=== PATIENT | female | born 1955 | race Caucasian/White ===

== ENCOUNTER 2021-11-26 09:24 | Inpatient (IN) | payer MEDICARE, MEDICAID ==
[~2021-11-26] VITALS: Ht 154.9 cm; Wt 115.8 kg
--- NOTE | 2021-11-26 12:59 | PM&R Post Admission Assessment ---
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 Mayra Mcdaniel. Status post respiratory failure with hypoxia and hypercapnia. Exacerbation of COPD with diabetes, hypertension, and a history of CVA. She presented to in-patient rehab with severe weakness in need of aggressive therapy in order to return back home. She lives alone, has a caregiver 3 days a week 3 hours a day. At current level of functioning she is minimal assisti at 80 feet and max assist with lower extremity dressing. Past Jvqobky-Tavegv-Qlwnih Hx Past Med/Social Hx: Reviewed Nursing Past Med/Soc Hx, Reviewed and Corrections made Patient Social History Marrital Status: single Employed/Student: retired Alcohol Use: Denies Use Smoking Status: Former Smoker Past Medical History Respiratory: COPD, Pneumonia Currently Using CPAP: Yes Currently Using BIPAP: No Cardiac: Chronic Edema/Swelling, High Cholesterol, Hypertension Neurological: Dementia, Neuropathy Genitourinary: Bladder Infection Gastrointestinal: Gastroesophageal Reflux, Chronic Constipation Musculoskeletal: Arthritis, Chronic Back Pain Endocrine: Diabetes, Insulin dep PM&R Allergy/Meds/Data Review Allergies Coded Allergies: Penicillins (Verified Allergy, Unknown, Rash, 11/26/21) Home Medications Scheduled Atorvastatin Calcium (Atorvastatin Calcium), 20 MG PO DAILY, (Reported) Budesonide/Formoterol Fumarate (Symbicort 160-4.5 Mcg Inhaler), 2 PUFF IH BID, (Reported) Citalopram Hydrobromide (Citalopram HBr), 20 MG PO DAILY, (Reported) Donepezil HCl (Donepezil HCl), 10 MG PO HS, (Reported) Doxycycline Hyclate (Doxycycline Hyclate), 100 MG PO BID, (Reported) Duloxetine HCl (Duloxetine HCl), 30 MG PO BID, (Reported) Fluticasone Propionate (Flonase Allergy Relief), 2 SPRAY NSEACH DAILY, (Reported) Folic Acid (Folic Acid), 1 MG PO DAILY, (Reported) Furosemide (Furosemide), 20 MG PO DAILY, (Reported) Insulin Glargine,Hum.rec.anlog (Lantus), 25 UNIT SQ HS, (Reported) Insulin Lispro (Humalog), 8 UNIT SQ TIDWM, (Reported) Insulin Lispro (Humalog), UNIT SQ TIDWM, (Reported) Levothyroxine Sodium (Levothyroxine Sodium), 150 MCG PO DAILY, (Reported) Lisinopril (Lisinopril), 20 MG PO DAILY, (Reported) Memantine HCl (Namenda), 20 MG PO DAILY, (Reported) Metformin HCl (Metformin HCl ER), 750 MG PO BID WITH MEALS, (Reported) Nicotine (Nicotine Patch), 21 MG TD DAILY, (Reported) Prednisone (Prednisone), MG PO DAILY, (Reported) Rivaroxaban (Xarelto), 20 MG PO 1800 W/SUPPER, (Reported) Spironolactone (Aldactone), 25 MG PO DAILY, (Reported) Tiotropium [place] (Spiriva Respimat 2.5MCG/ACTUATION), 2 PUFF IH DAILY, (R eported) Scheduled PRN Albuterol Sulfate (Proair Hfa), 2 PUFF IH Q4H PRN for SHORTNESS OF BREATH, (Reported) Ipratropium/Albuterol Sulfate (Iprat-Albut 0.5-3(2.5) mg/3 ml), 3 ML IH Q6H PRN for SHORTNESS OF BREATH, (Reported) [Tussionex], 5 ML PO Q12H PRN for COUGH, (Reported) Current Medications Current Medications Reviewed Review of Systems Constitutional: see HPI, dizziness, malaise, weakness EENTM: no symptoms reported Respiratory: dyspnea on exertion, short of breath Cardiovascular: no symptoms reported Gastrointestinal: no symptoms reported Genitourinary: no symptoms reported Musculoskeletal: back pain, joint pain Skin: no symptoms reported Psychiatric/Neurological: Anxiety, Depressed All Other Systems Reviewed Negative Unless Noted: Yes Physical Exam Physical Exam Vital Signs Capillary Refill : Height, Weight, BMI Height: '" Weight: lbs. oz. kg; BMI Method: General Appearance: No Apparent Distress, WD/WN, Chronically ill, Obese Eyes: Bilateral Eye Normal Inspection, Bilateral Eye PERRL HEENT: PERRL/EOMI, Normal ENT Inspection, Pharynx Normal Neck: Full Range of Motion, Normal Inspection, Non Tender, Supple, Carotid Bruit Respiratory: Chest Non Tender, Lungs Clear, No Accessory Muscle Use, No Respiratory Distress, Decreased Breath Sounds Cardiovascular: Regular Rate, Rhythm, No Edema, No Gallop, No JVD, No Murmur, Normal Peripheral Pulses Gastrointestinal: Normal Bowel Sounds, No Organomegaly, No Pulsatile Mass, Non Tender, Soft Back: Normal Inspection, No CVA Tenderness, No Vertebral Tenderness Extremity: Normal Capillary Refill, Normal Inspection, Normal Range of Motion, Non Tender, No Calf Tenderness, No Pedal Edema Neurologic/Psychiatric: Alert, Oriented x3, No Motor/Sensory Deficits, Normal Mood/Affect, Depressed Affect Skin: Normal Color, Warm/Dry Lymphatic: No Adenopathy PM&R Medical Assessment & Plan REHAB/MEDICAL ASSESSMENT AND PLAN: REHAB IMPAIRMENT GROUP: COPD myopathy ETIOLOGIC DIAGNOSIS: COPD myopathy The comorbidities that impact the patients function and/or functional outcome by: obesity, COPD O2 dependent, Recent resp failure requiring biPAP REHAB PLAN: The patient is being admitted to our comprehensive inpatient rehabilitation facility and can tolerate the intensity of service consisting of at least: 180 minutes of therapy a day, 5 out of 7 days a week Rehab treatment will consist of: PT OT will focus on regaining function while giving more time for respiratory recovery while using assistive devices in order to regain independence The patient/family has a good understanding of our discharge process and will benefit from an interdisciplinary inpatient rehabilitation program. The patient has potential to make improvement and is in need of at least two of the following multidisciplinary therapies including but not limited to physical, occupational, speech, and prosthetics and orthotics. Additionally the patient will need services from respiratory, nutritional services, wound care, psychology, etc. (Customize this to each patient). Given the patients complex condition and risk of further medical complications, rehabilitation services cannot be safely or effectively provided at a lower level of care such as a senior care facility. BARRIERS TO DISCHARGE: Lives alone ESTIMATED LOS: 7 days DISPOSITION: Home RELEVANT CHANGES SINCE PREADMISSION SCREENING: I have compared the patients medical and functional status at the time of the preadmission screening and there are: no changes PROGNOSIS: Fair REHABILITATION GOALS: 1.PT OT will focus on regaining function while giving more time for respiratory recovery while using assistive devices in order to regain independence All the above goals were reviewed with the patient and he/she is in agreement. By signing this document, I acknowledge that I have personally performed a full physical examination on this patient within 24 hours of admission to this inpatient rehabilitation facility and have determined the patient to be able to tolerate the above course of treatment at an intensive level for a reasonable period of time. I will be completing a detailed individualized Plan of Care for this patient by day #4 of the patients stay based upon the Preadmission Screen, the Post-Admission Evaluation, and the therapy evaluations. Admission Dx/Comorbidities: (1) Myopathy ICD Codes: G72.9 - Myopathy, unspecified Assessment/Plan Assessment and Plan Assess & Plan/Chief Complaint Assessment: COPD myopathy Obesity BETTE on CPAP O2 dependence Dementia HTN HLP DM insulin dependence Plan: SSI A PT OT per protocol Pain management Fall risk ALONDRA FLORES DO Nov 26, 2021 12:59
[2021-11-26] MEDS ORDERED: ONDANSETRON 4 MG (ZOFRAN) ORAL DISSOLVE TAB PO PRN (13:00)
[2021-11-26] MEDS ORDERED: guaiFENesin/CODEINE (ROBITUSSIN AC) 10ML UDC PO PRN (13:00)
[2021-11-26] MEDS ORDERED: MELATONIN 3 MG TABLET PO PRN (13:00)
[2021-11-26] MEDS ORDERED: DOCUSATE SODIUM 100 MG (COLACE) CAP PO PRN (13:00)
[2021-11-26] MEDS ORDERED: LOPERAMIDE 2 MG (IMODIUM) TABLET PO PRN (13:00)
[2021-11-26] MEDS ORDERED: ACETAMINOPHEN 325 MG TABLET PO PRN (13:00)
[2021-11-26] MEDS ORDERED: CALCIUM CARBONATE 500 MG (TUMS) TAB.CHEW PO PRN (13:00)
[2021-11-26] MEDS ORDERED: BISACODYL 10 MG SUPP (DULCOLAX) PR PRN (13:00)
[2021-11-26] MEDS ORDERED: ALPRAZolam 0.25 MG (XANAX) TAB PO PRN (13:00)
[2021-11-26] MEDS ORDERED: FLEET ENEMA ADULT 1 EA BTL PR PRN (13:00)
[2021-11-26] MEDS ORDERED: LACTULOSE SYRUP 10GM/15ML (ENULOSE) 30ML UDC PO PRN (13:00)
[2021-11-26] MEDS ORDERED: diphenhydrAMINE 25 MG TAB (BENADRYL) PO PRN (13:00)
[2021-11-26] MEDS ORDERED: DOXY100C5 PO (13:48)
[2021-11-26] MEDS ORDERED: IPRA3AMP31 IH (13:48)
[2021-11-26] MEDS ORDERED: INSU100V6 SQ (13:48)
[2021-11-26] MEDS ORDERED: TUSSIONEX PO (13:48)
[2021-11-26] MEDS ORDERED: INSU100V SQ (13:48)
[2021-11-26] MEDS ORDERED: DONE10TA41 PO (13:48)
[2021-11-26] MEDS ORDERED: ATOR20TA66 PO (13:48)
[2021-11-26] MEDS ORDERED: LISI20TA26 PO (13:48)
[2021-11-26] MEDS ORDERED: FLUT9.9S NSEACH (13:48)
[2021-11-26] MEDS ORDERED: DULO30CA49 PO (13:48)
[2021-11-26] MEDS ORDERED: NICO-685 TD (13:48)
[2021-11-26] MEDS ORDERED: RT-ALBUINH IH (13:48)
[2021-11-26] MEDS ORDERED: CITA20TA9 PO (13:48)
[2021-11-26] MEDS ORDERED: LEVO150T6 PO (13:48)
[2021-11-26] MEDS ORDERED: FOLI1TAB33 PO (13:48)
[2021-11-26] MEDS ORDERED: BUDE10.2 IH (13:48)
[2021-11-26] MEDS ORDERED: METF750T45 PO (13:48)
[2021-11-26] MEDS ORDERED: FURO20TA4 PO (13:48)
[2021-11-26] MEDS ORDERED: RIVA20TA PO (13:48)
[2021-11-26] MEDS ORDERED: MEMA5TAB PO (13:48)
[2021-11-26] MEDS ORDERED: PRD10T PO (13:48)
[2021-11-26] MEDS ORDERED: TIOT4MIS2 IH (13:48)
[2021-11-26] MEDS ORDERED: SPIR25TA PO (13:48)
[2021-11-26 16:43] VITALS: BP 125/71
[2021-11-26] MEDS ORDERED: RT-ALBUTEROL/IPRATROPIUM 3 ML (DUONEB) VIAL IH PRN (17:00)
[2021-11-26] MEDS ORDERED: TUSSIONEX PO PRN (17:00)
[2021-11-26] MEDS ORDERED: RT-ALBUTEROL SULF 2.5 MG/3 ML PRE-MIX VIAL IH PRN (17:00)
[2021-11-26] MEDS ORDERED: HYDROcodone/Chlorpen 10MG/5 ML (TUSSIONEX) 5ML UDC PO PRN (17:15)
[2021-11-26] MEDS ORDERED: INSULIN LISPRO 8 UNIT SQ SCH (18:00)
[2021-11-26] MEDS ORDERED: NON-FORMULARY MEDICATION 1 EA EA (Metformin HCl (Metformin HCl ER) 750 MG) PO SCH (18:00)
[2021-11-26] MEDS ORDERED: metFORMIN XR 500 MG (GLUCOPHAGE XR) TAB PO SCH (18:00)
[2021-11-26] MEDS: RIVAROXABAN 20 MG TABLET (XARELTO) PO SCH (18:13)
[2021-11-26] MEDS: metFORMIN XR 500 MG (GLUCOPHAGE XR) TAB PO SCH (18:13)
[2021-11-26] MEDS: inSUlin ASPART (NovoLOG) 1 UNIT/0.01 ML (CHARGE PER UNIT) SC SCH ×3 (18:15→20:48)
[2021-11-26 19:52] VITALS: BP 117/68
[2021-11-26] MEDS: DONEPEZIL 10 MG (ARICEPT) TAB PO SCH (20:36)
[2021-11-26] MEDS: DULoxetine 30 MG (CYMBALTA) CAP PO SCH (20:36)
[2021-11-26] MEDS: DOXYCYCLINE 100 MG (VIBRAMYCIN) TABLET PO SCH (20:36)
[2021-11-26] MEDS: DOCUSATE SODIUM 100 MG (COLACE) CAP PO SCH (20:39)
[2021-11-26] MEDS: polyethylene glycoL POWDER 17 GM (MIRALAX) PACK PO SCH (20:39)
[2021-11-26] MEDS: SENNA W/DOCUSATE (SENOKOT S) TABLET PO SCH (20:39)
[2021-11-26] MEDS ORDERED: NON-FORMULARY MEDICATION 1 EA EA (Doxycycline Hyclate 100 MG) PO SCH (21:00)
[2021-11-26] MEDS ORDERED: NON-FORMULARY MEDICATION 1 EA EA (Insulin Glargine,Hum.rec.anlog (Lantus) 25 UNIT) SQ SCH (21:00)
[2021-11-26] MEDS ORDERED: NON-FORMULARY MEDICATION 1 EA EA (Budesonide/Formoterol Fumarate (Symbicort 160-4.5 Mcg In IH SCH (21:00)
[2021-11-27 05:51] LABS: BASOPHILS % (AUTO) 0 % (0-10); EOSINOPHILS # (AUTO) 0.1 10^3/uL (0.0-0.3); EOSINOPHILS % (AUTO) 1 % (0-10); HEMATOCRIT 49 % (35-52); LYMPHOCYTES # (AUTO) 2.1 10^3/uL (1.0-4.0); LYMPHOCYTES % (AUTO) 22 % (12-44); MEAN CORPUSCULAR HEMOGLOBIN 31 pg (25-34); MEAN CORPUSCULAR HGB CONC 31 g/dL (32-36); MEAN CORPUSCULAR VOLUME 103 fL (80-99); MEAN PLATELET VOLUME 10.9 fL (9.0-12.2); MONOCYTES # (AUTO) 0.8 10^3/uL (0.0-1.0); MONOCYTES % (AUTO) 8 % (0-12); NEUTROPHILS # (AUTO) 6.7 10^3/uL (1.8-7.8); NEUTROPHILS % (AUTO) 69 % (42-75); PLATELET COUNT 178 10^3/uL (130-400); WHITE BLOOD COUNT 9.8 10^3/uL (4.3-11.0)
--- NOTE | 2021-11-27 05:52 | PM&R Progress Note ---
Subjective HPI/CC On Admission Date Seen by Provider: Nov 27, 2021 Time Seen by Provider: 12:00 Subjective/Events-last exam 11/27/21: Pt is doing about the same Very forgetful, very impulsive Holding insulin due to hypoglycemia Chair and bed alarm maintained Review of Systems General: Fatigue, Malaise Pulmonary: Dyspnea Neurological: Confusion Objective Exam Vital Signs Vital Signs Date Time Temp Pulse Resp B/P (MAP) Pulse Ox O2 Delivery O2 Flow Rate FiO2 11/28/21 02:38 68 21 93 40.00 11/27/21 22:11 Nasal Cannula 11/27/21 19:24 36.4 135/72 (93) Capillary Refill : General Appearance: No Apparent Distress, WD/WN, Chronically ill, Obese HEENT: PERRL/EOMI, Normal ENT Inspection, Pharynx Normal Neck: Full Range of Motion, Normal Inspection, Non Tender, Supple, Carotid Bruit Respiratory: Chest Non Tender, Lungs Clear, No Accessory Muscle Use, No Respiratory Distress, Decreased Breath Sounds Cardiovascular: Regular Rate, Rhythm, No Edema, No Gallop, No JVD, No Murmur, Normal Peripheral Pulses Gastrointestinal: Normal Bowel Sounds, No Organomegaly, No Pulsatile Mass, Non Tender, Soft Back: Normal Inspection, No CVA Tenderness, No Vertebral Tenderness Extremity: Normal Capillary Refill, Normal Inspection, Normal Range of Motion, Non Tender, No Calf Tenderness, No Pedal Edema Neurologic/Psychiatric: Alert, Oriented x3, No Motor/Sensory Deficits, Normal Mood/Affect, Depressed Affect Skin: Normal Color, Warm/Dry Lymphatic: No Adenopathy Results/Procedures Lab Patient resulted labs reviewed. FIM Transfers Therapy Code Descriptions/Definitions Functional [place] Measure: 0=Not Assessed/NA 4=Minimal Assistance 1=Total Assistance 5=Supervision or Setup 2=Maximal Assistance 6=Modified [place] 3=Moderate Assistance 7=Complete IndependenceSCALE: Activities may be completed with or without assistive devices. 6-Xqyetrtdbn-iuoxglk completes the activity by him/herself with no assistance fr om a helper. 5-Set-up or Clean-up Assistance-helper sets up or cleans up; patient completes activity. [place] assists only prior to or following the activity. 4-Supervision or Touching Assistance-helper provides verbal cues and/or touching/steadying and/or contact guard assistance as patient completes activity. Assistance may be provided throughout the activity or intermittently. 3-Partial/Moderate Assistance-helper does LESS THAN HALF the effort. [place] lifts, holds or supports trunk or limbs, but provides less than half the effort. 2-Substantial/Maximal Assistance-helper does MORE THAN HALF the effort. [place] lifts or holds trunk or limbs and provides more than half the effort. 3-Qrsptxoqy-wdpifi does ALL the effort. Patient does none of the effort to complete the activity. Or, the assistance of 2 or more helpers is required for the patient to complete the activity. If activity was not attempted, code reason: 7-Patient Refused. 9-Not Applicable-not attempted and the patient did not perform the activity before the current illness, exacerbation or injury. 10-Not Attempted due to Environmental Limitations-(lack of equipment, weather restraints, etc.). 88-Not Attempted due to Medical Conditions or Safety Concerns. Assessment/Plan Assessment and Plan Assess & Plan/Chief Complaint Assessment: COPD myopathy Obesity BETTE on CPAP O2 dependence Dementia HTN HLP DM insulin dependence Plan: SSI A PT OT per protocol Pain management Fall risk 11/27/21: Hold insulin Monitor pain (1) Myopathy ALONDRA FLORES DO Nov 27, 2021 05:51
[2021-11-27 05:59] LABS: ALBUMIN 3.3 GM/DL (3.2-4.5); POTASSIUM 4.2 MMOL/L (3.6-5.0)
[2021-11-27 06:04] LABS: BILIRUBIN,TOTAL 0.6 MG/DL (0.1-1.0)
[2021-11-27 06:05] LABS: CREATININE SERUM 0.81 MG/DL (0.60-1.30)
[2021-11-27] MEDS: inSUlin ASPART (NovoLOG) 1 UNIT/0.01 ML (CHARGE PER UNIT) SC SCH ×5 (06:26→20:43)
[2021-11-27] MEDS: LEVOTHYROXINE 150 MCG (LEVOTHROID) TAB PO SCH (06:33)
[2021-11-27] MEDS: DULoxetine 30 MG (CYMBALTA) CAP PO SCH ×2 (07:47→20:42)
[2021-11-27] MEDS: SPIRONOLACTONE 25 MG (ALDACTONE) TAB PO SCH (07:47)
[2021-11-27] MEDS: DOXYCYCLINE 100 MG (VIBRAMYCIN) TABLET PO SCH ×2 (07:47→20:42)
[2021-11-27] MEDS: lisINopril 20 MG (PRINIVIL) TABLET PO SCH (07:47)
[2021-11-27] MEDS: FOLIC ACID 1 MG TAB PO SCH (07:47)
[2021-11-27] MEDS: FUROSEMIDE 20 MG (LASIX) TAB PO SCH (07:47)
[2021-11-27 07:48] VITALS: BP 104/55
[2021-11-27] MEDS: metFORMIN XR 500 MG (GLUCOPHAGE XR) TAB PO SCH ×2 (07:48→17:27)
[2021-11-27] MEDS: NICOTINE 21 MG (NICODERM) PATCH TD SCH (07:56)
[2021-11-27] MEDS: MEMANTINE 5 MG (NAMENDA) TABLET PO SCH (07:56)
[2021-11-27] MEDS: NICOTINE PATCH REMOVAL TP SCH (07:57)
[2021-11-27] MEDS: FLUTICASONE NASAL SPRAY (FLONASE) 16 GM BTL NS SCH (07:58)
[2021-11-27] MEDS: polyethylene glycoL POWDER 17 GM (MIRALAX) PACK PO SCH ×2 (08:06→19:59)
[2021-11-27] MEDS: DOCUSATE SODIUM 100 MG (COLACE) CAP PO SCH ×2 (08:06→19:59)
[2021-11-27] MEDS: SENNA W/DOCUSATE (SENOKOT S) TABLET PO SCH ×2 (08:07→19:59)
--- NOTE | 2021-11-27 08:57 | Physical Therapy Evaluation ---
PT Evaluation-General Medical Diagnosis Admission Date Nov 26, 2021 at 16:15 Medical Diagnosis: COPD, debility Onset Date: Nov 26, 2021 Therapy Diagnosis Therapy Diagnosis: impaired mobility, strength, endurance Precautions Precautions/Isolations: Fall Prevention, Standard Precautions Referral Physician: Elba Rowell DO Reason for Referral: Evaluation/Treatment Medical History Pertinent Medical History: DM, Dementia, HTN Reviewed History: Yes Social History Home: Single Level Current Living Status: Alone Entry Into Home: Ramp Prior Prior Level of Function SCALE: Activities may be completed with or without assistive devices. 2-Wlypjiyooa-ulkyqca completes the activity by him/herself with no assistance from a helper. 5-Set-up or Clean-up Assistance-helper sets up or cleans up; patient completes activity. [place] assists only prior to or following the activity. 4-Supervision or Touching Assistance-helper provides verbal cues and/or touching/steadying and/or contact guard assistance as patient completes activity. Assistance may be provided throughout the activity or intermittently. 3-Partial/Moderate Assistance-helper does LESS THAN HALF the effort. [place] lifts, holds or supports trunk or limbs, but provides less than half the effort. 2-Substantial/Maximal Assistance-helper does MORE THAN HALF the effort. [place] lifts or holds trunk or limbs and provides more than half the effort. 7-[place] does ALL the effort. Patient does none of the effort to complete the activity. Or, the assistance of 2 or more helpers is required for the patient to complete the activity. If activity was not attempted, code reason: 7-Patient Refused. 9-Not Applicable-not attempted and the patient did not perform the activity before the current illness, exacerbation or injury. 10-Not Attempted due to Environmental Limitations-(lack of equipment, weather restraints, etc.). 88-Not Attempted due to Medical Conditions or Safety Concerns. Bed Mobility: 6 Transfers (B,C,W/C): 6 Gait: 6 Indoor Mobility (Ambulation): Independent Prior Devices Use: Walker PT Evaluation-Current Subjective Patient in recliner pre tx, agrees to PT, has no complaints of pain. Pt/Family Goals to be independent at home Objective Patient Orientation: Person, Confused Attachments: Oxygen ROM/Strength ROM Lower Extremities WNL Strength Lower Extremities LLE (hip flexion 3+/5, knee flexion 4-/5, knee extension 4/5, dorsiflexion 4+/5), RLE (hip flexion 3+/5, knee flexion 4-/5, knee extension 4/5, dorsiflexion 4+/5) Sensory Vision: Functional Hearing: Functional Sensation Right Lower Extremit: Intact Sensation Left Lower Extremity: Intact Transfers Roll Left & Right (QC): 6 Sit to Lying (QC): 6 Lying to Sitting/Side of Bed(Q: 6 Sit to Stand (QC): 4 Chair/Dgz-yf-Fhagg Xfer(QC): 4 Toilet Transfer (QC): 4 Car Transfer (QC): 4 Patient performs rolling and supine <-> sit with independence, sit <-> stand and transfers with CGA, car transfer CGA. Patient is confused and needs cues to stay on task and for safety. Gait Does the Patient Walk?: Yes Mode of Locomotion: Walk Anticipated Mode of Locomotion: Walk Walk 10 feet (QC): 4 Walk 50 ft with 2 Turns(QC): 4 Walk 150 ft (QC): 88 Walking 10ft/uneven surface-QC: 4 Distance: 100', 20'x3 Gait Assistive Device: FWW Comments/Gait Description Patient can ambulate 100' with a rolling walker with CGA (including 50' with at least 2 turns of 90 degrees and 10' over an uneven surface), patient needs cues for direction Wheelchair Training Wheel 50 ft with 2 turns (QC): 3 Wheel 150 ft (QC): 3 Type of Wheelchair: Manual Stairs #of Steps: 1 1 Step (curb) (QC): 4 4 Steps (QC): 88 12 Steps (QC): 88 Walking Assistive Device: Walker Patient can go up and down 1 step using a rolling walker with CGA, cues for foot placement. Balance Sitting Static: Normal Sitting Dynamic: Normal Standing Static: Good Standing Dynamic: Good Picking up an Object (QC): 4 (CGA with criminal justice teacher) Treatment NuStep level 5 for 15 min, parallel bars exercises x15 (heel raises, mini- squats, marching, hamstring curls, hip abd) Assessment/Needs Patient in recliner post tx with nurse call, phone, tray, all needs met, chair alarm on. Patient has impaired mobility, strength, endurance. She needs occasional rest breaks with activity, can be a little impulsive. Rehab Potential: Fair PT Short Term Goals Short Term Goals Time Frame: Dec 04, 2021 Roll Left & Right: 6 Sit to lyin Lying to sitting on side of be: 6 Sit to stand: 4 (SBA) Chair/tqp-jt-ziujz transfer: 4 (SBA) Walk 10 feet: 4 (SBA) Walk 50 feet with two turns: 4 (SBA) Walk 150 feet: 4 (SBA) PT Candle Molder Goals Mcc Goals PT Candle Molder Goals Time Frame: Dec 18, 2021 Roll Left & Right (QC): 6 Sit to Lying (QC): 6 Lying-Sitting on Side/Bed(QC): 6 Sit to Stand (QC): 6 Chair/[place]hq[place] Xfer(QC): 6 Toilet Transfer (QC): 6 Car Transfer (QC): 6 Does the Patient Walk: Yes Walk 10 feet (QC): 6 Walk 50ft with 2 Turns (QC): 6 Walk 150 ft (QC): 6 Walking 10ft on Uneven Surface: 6 1 Step (curb) (QC): 4 (SBA) 4 Steps (QC): 4 (SBA) 12 Steps (QC): 88 Picking up an Object (QC): 6 Wheel 50 feet with 2 turns (QC: 9 Wheel 150 feet: 9 PT Plan Problem List Problem List: Activity Tolerance, Functional Strength, Safety, Balance, Gait, Transfer, Bed Mobility, ROM Treatment/Plan Treatment Plan: Continue Plan of Care Treatment Plan: Bed Mobility, Education, Functional Activity Jerrod, Functional Strength, Group Therapy, Gait, Safety, Therapeutic Exercise, Transfers Treatment Duration: Dec 18, 2021 Frequency: At least 5 of 7 days/Wk (IRF) Estimated Hrs Per Day: 1.5 hours per day Patient and/or Family Agrees t: Yes Safety Risks/Education Patient Education: Gait Training, Transfer Techniques, Steps, Correct Positioning, Safety Issues Teaching Recipient: Patient Teaching Methods: Demonstration, Discussion Response to Teaching: Reinforcement Needed Discharge Recommendations Plan Patient will perform bed mobility and transfer training, balance and endurance training, functional strengthening, stair training, gait training, and education, to improve functional mobility and independence at home. Therapy Discharge Recommendati: Scheduled Assistance, Home & Family, Post Acute PT Time/GCodes Time In: 0800 Time Out: 0915 Total Billed Treatment Time: 75 Total Billed Treatment 1 visit EVM 15' EX 30' FA 30' HEATHER [place] PT Nov 27, 2021 08:57
[2021-11-27] MEDS ORDERED: NON-FORMULARY MEDICATION 1 EA EA (Fluticasone Propionate (Flonase Allergy Relief) 2 SPRAY) NSEACH SCH (09:00)
[2021-11-27] MEDS ORDERED: NON-FORMULARY MEDICATION 1 EA EA (Tiotropium Bromide (Spiriva Respimat 2.5MCG/ACTUATION) 2 IH SCH (09:00)
[2021-11-27] MEDS: UMECLIDINIUM BROMIDE (INCRUSE ELLIPTA) 7'S IH SCH (09:02)
[2021-11-27] MEDS: RT--FLUTICASONE/SALMETEROL 232-14 (AIRDUO RespiCLICK) IH SCH ×2 (09:03→22:11)
[2021-11-27] MEDS: predniSONE 10 MG TAB PO SCH (09:24)
--- NOTE | 2021-11-27 11:22 | ST Cognitive Linguistic Eval ---
Speech Evaluation-General Medical Diagnosis COPD, Debility Onset Date: Nov 26, 2021 Therapy Diagnosis Therapy Diagnosis: Neurocognitive Impairment Precautions Precautions: Fall Precautions/Isolations: Standard Precautions Referral Referring Physician: Dr. Rowell Medical History Pertinent Medical History: DM, Dementia, HTN Current History The patient is a 65 year-old old female with a past medical history of COPD, pneumonia, high cholesterol, HTN, dementia, GERD, and arthritis, who presented to [facility] status post respiratory failure with hypoxia and hypercapnia. Reviewed History: Yes Social History Current Living Status: Alone Speech PLF-Current Status Prior Level of Function The patient denied prior challenges with speech, language, cognition, or swallowing. Per chart review, the patient does have a diagnosis of dementia. Confusion is present throughout informal, spontaneous exchanges between the clinician and the patient. Subjective The patient was seated upright in her recliner, awake and alert upon entrance to her room by the clinician. The patient greeted the clinician appropriately and was agreeable to participation in the cognitive linguistic evaluation. Language Eval: Auditory Comprehends Simple Yes/No Ques: Functional Indent/Objects Multiple [place]: Functional Ident/Pics in Multiple [place]: Functional Follows 1-Step Commands: Functional Follows General Conversations: Mild Language Eval: Verbal Language Completes Spontaneous Greeting: Functional Produces Auto, Serial Info: Functional Imitates Simple Words/Phrases: Functional Word Finding: Moderate Requests Basic Needs: Functional States Basic Personal Info: Functional Expresses Complex Ideas: Moderate Language Evaluation: Reading Follows Simple Written Direct: Functional Language Evaluation: Writing Writes to Simple Dictation: Functional Cognitive Patient Orientation The patient was oriented to month and self. The patient was not oriented to year, location, or day of week. Objective Cognitive Domain Attention: Mild Memory: Moderate Problem Solving: Moderate Executive Functions: Moderate Composite Severity Rating: Moderate Clock Drawing Severity Rating: Moderate Objective Formal/Standardized Tests [facility] Mental Status Exam (UMS) Results The patient demonstrated a result of +12/30 correlating to a SLUMS score of "dementia." Oral Motor/Speech Production The patient does not demonstrate dysarthria or apraxia of speech. The patient is 100% intelligible in known and unknown contexts. Impression The patient demonstrated impairments in the areas of memory, problem solving, orientation, and executive functioning. The patient does present to ARU with a diagnosis of dementia and the patient's baseline skills are unknown to this clinician. The clinician will provide skilled speech pathology services, with discharge occurring if lack of progression is demonstrated. Speech Patient Assess Expression of Ideas/Wants: Exhibits (3) Understanding Verbal Content: Sometimes Understands(2) Brief Interview-Mental Status: Yes Repetition of Three Words: Three (3) Temporal Orientation: Year: Missed by 2-5 years (1) Temporal Orientation: Month: Accurate within 5 days(2) Temporal Orientation: Day: Incorrect or No Answer(0) Recall : Wear to say "Sock": Yes, no cue required (2) Recall : Color: Yes, no cue required (2) Recall : Bed: Yes,after cueing (1) Memory/Recall Ability: Current season, That he or she is in a hsp/hsp unit Speech Short Term Goals Short Term Goals Short Term Goals 1. The patient will demonstrate 80% accuracy with memory exercises provided mild clinician verbal and visual cueing. Time Frame-STG: One Week. Speech Rabbit Fancier Goals Long-Term Goals 1. The patient will display improved cognitive linguistic skills for safe discha rge to the least restrictive environment. Time Frame: Two Weeks. Speech-Plan Treatment Plan Speech Therapy Treatment Plan: Continue Plan of Care Treatment Duration: Dec 11, 2021 Frequency: Modified Program (IRF) (Three to five times per week.) Estimated Hrs Per Day: .5 hour per day Rehab Potential: Fair Pt/Family Agrees to Plan: Yes Safety Risks/Education Teaching Recipient: Patient Teaching Methods: Discussion Response to Teaching: Reinforcement Needed Education Topics Provided: Results of SLUMS, Recommendations, POC Time Speech Therapy Time In: 09:30 Speech Therapy Time Out: 10:00 Total Billed Time: 30 Billed Treatment Time 1, MARISELA DONALD [address]IZ[address] ST Nov 27, 2021 11:21
--- NOTE | 2021-11-27 11:52 | Occupational Therapy Eval ---
OT Evaluation-General/PLF Medical Diagnosis Admission Date Nov 26, 2021 at 16:15 Medical Diagnosis: COPD, Debility Onset Date: Nov 26, 2021 Therapy Diagnosis Therapy Diagnosis: decreased ADL status Precautions Precautions/Isolations: Standard Precautions Referral Physician: Elba Rowell DO Referral Reason: Evaluation/Treatment Medical History Pertinent Medical History: DM, Dementia, HTN Additional Medical History COPD (home O2, 3L), tobacco abuse, early senility, CVA, hypothyroidism, HLD, Pickwickian syndrome, and dementia. Current History Admitted to ED with acute hypercapnic/hypoxemic respiratory failure, placed on BiPAP. Pt c/o of cough and SOB. Social History Home: Single Level Current Living Status: Alone Entry Into Home: Level Entry ADL-Prior Level of Function SCALE: Activities may be completed with or without assistive devices. 7-Yfgrmfydse-oiaylam completes the activity by him/herself with no assistance from a helper. 5-Set-up or Clean-up Assistance-helper sets up or cleans up; patient completes activity. [place] assists only prior to or following the activity. 4-Supervision or Touching Assistance-helper provides verbal cues and/or touching/steadying and/or contact guard assistance as patient completes activity. Assistance may be provided throughout the activity or intermittently. 3-Partial/Moderate Assistance-helper does LESS THAN HALF the effort. [place] lifts, holds or supports trunk or limbs, but provides less than half the effort. 2-Substantial/Maximal Assistance-helper does MORE THAN HALF the effort. [place] lifts or holds trunk or limbs and provides more than half the effort. 4-Takmecpva-seqcsl does ALL the effort. Patient does none of the effort to complete the activity. Or, the assistance of 2 or more helpers is required for the patient to complete the activity. If activity was not attempted, code reason: 7-Patient Refused. 9-Not Applicable-not attempted and the patient did not perform the activity before the current illness, exacerbation or injury. 10-Not Attempted due to Environmental Limitations-(lack of equipment, weather restraints, etc.). 88-Not Attempted due to Medical Conditions or Safety Concerns. ADL PLOF Comments Pt reports being IND with ADLs prior to incident. Pt says she does not wear socks at home, she only uses slip on shoes. Pt has walk-in shower with a SC and GBs. Pt receives help with IADLs from caregiver, 3days/wk for 3hrs/day, but she insinuates that the caregiver does not do all the tasks asked of her. Self Care: Independent Functional Cognition: Needed Some Help DME/Equipment: Bath Bench, Grab Bars, Shower OT Current Status Subjective Pt seated in recliner prior to OT eval/tx. Pt agreeable to tx. Mental Status/Objective Patient Orientation: Person, Confused, Situation Attachments: Oxygen Current Dentures/Partials: Yes Hand Dominance: Right Upper Extremity ROM BUEs ~140 degrees Upper Extremity Coordination WFL Upper Extremity Strength BUEs 4/5 ADL-Treatment Eating (QC): 6 Oral Hygiene (QC): 4 (SBA) Shower/Bathe Self (QC): 4 (SBA. Min v/c's required for safety) Upper Body Dressing (QC): 4 (SBA) Lower Body Dressing (QC): 2 (Max A. Pt able to thread R foot but required assistance threading L foot and hiking brief up. ) On/Off Footwear (QC): 3 (Min A. Pt able to doff both gripper socks and don R foot but required assistance threading and hiking L gripper sock.) Toileting Hygiene (QC): 4 (SBA) Other Treatments Pt seated in recliner prior to tx. Pt provided information about PLOF and home environment. Pt used FWW to transfer to bathroom, SBA. Pt impulsive with task, standing from recliner prior to walker or gait belt being placed. Pt completed toileting, oral hygiene, bathing, and dressing in the bathroom. Rash in L arm pit, under chest, and in periarea noted during shower, nurse notified. Pt transferred back to recliner with FWW, SBA. Pt participated in grooming tasks while seated in recliner. Pt educated on UE exercises using light resistance (yellow) theraband, completing x10 reps of 3 exercises. Post tx, pt left in recliner with alarm set, call light in reach, and all needs met. Education OT Patient Education: Correct positioning, Energy conservation, Exercise program, Modified ADL techniques, Progress toward Goal/Update tx plan, Purpose of tx/functional activities, Rehab process, Safety issues Teaching Recipient: Patient Teaching Methods: Discussion Response to Teaching: Verbalize Understanding, Reinforcement Needed OT Short Term Goals Short Term Goals Time Frame: Dec 19, 2021 Lower body dressin Putting on/taking off footwear: 4 OT Assisted Goals Assisted Goals Time Frame: Dec 19, 2021 Eating (QC): 6 Oral Hygiene (QC): 6 Toileting Hygiene (QC): 6 Shower/Bathe Self (QC): 6 Upper Body Dressing (QC): 6 Lower Body Dressing (QC): 6 On/Off Footwear (QC): 6 Additional Goals: 1-Demonstrate ADL Tasks, 2-Verbalize Understanding, 3- ImproveStrength/Jerrod 1=Demonstrate adherence to instructed precautions during ADL tasks. 2=Patient will verbalize/demonstrate understanding of assistive devices/modifications for ADL. 3=Patient will improve strength/tolerance for activity to enable patient to perform ADL's. OT Education/Plan Problem List/Assessment Assessment: Decreased Activ Tolerance, Decreased Safety Aware, Impaired Cognition, Impaired Funct Balance, Impaired I ADL's, Impaired Self-Care Skills Discharge Recommendations Plan/Recommendations: Continue POC Treatment Plan/Plan of Care Patient would benefit from OT for education, treatment and training to promote independence in ADL's, mobility, safety and/or upper extremity function for ADL's. Plan of Care: ADL Retraining, Cognitive Retraining, Functional Mobility, Group Exercise/Act as Ind, UE Funct Exercise/Act Treatment Duration: Dec 19, 2021 Frequency: At least 5 of 7 days/Wk (IRF) Estimated Hrs Per Day: 1.5 hours per day Rehab Potential: Fair Time/GCodes Start Time: 10:30 Stop Time: 11:45 Total Time Billed (hr/min): 75 Billed Treatment Time 1, EVL (10'), ADL 3 (50'), EX (15') SALVATORE MORRISSEY OT Nov 27, 2021 11:52
[2021-11-27] MEDS: RIVAROXABAN 20 MG TABLET (XARELTO) PO SCH (17:27)
[2021-11-27] MEDS: MICONAZOLE 2% POWDER (DESENEX AF) 90 GM TOP SCH (18:24)
[2021-11-27 19:24] VITALS: BP 135/72
[2021-11-27] MEDS: DONEPEZIL 10 MG (ARICEPT) TAB PO SCH (20:42)
--- NOTE | 2021-11-28 05:50 | Individualized Plan of Care ---
Individualized Plan of Care Rehab Nursing IPOC Order Admission Date Nov 26, 2021 at 16:15 Current Orders Orders Admission Order(Inpt,Obs,Sdc) (11/26/21 12:56) Vital Signs: Per Unit Policy ( ,16, (11/26/21 12:56) Brien Cary (11/26/21 12:56) Sequential Compression Device (11/26/21 12:56) Teletypesetter Operator-Inpt Rehab Con (11/26/21 12:56) Rehab Nursing Orders-Ipoc (11/26/21 12:56) Physical Therapy Rehab Orders (11/26/21 12:56) Occupational Therapy Rehab Ord (11/26/21 12:56) Speech Therapy Rehab Orders (11/26/21 12:56) Cbc With Automated Diff (11/27/21 06:00) Comprehensive Metabolic Panel (11/27/21 06:00) Precautions (Aru) (11/26/21 12:56) Weekly Weight WEEK (11/26/21 12:56) Rehab-Intensity Of Therapy (11/26/21 12:56) Initiate Admission Nursing Pro .admission (11/26/21 12:56) Alprazolam Tablet (Xanax Tablet) (11/26/21 13:00) Calcium Carbonate Chew Tablet (Antacid C (11/26/21 13:00) Diphenhydramine Tablet (Benadryl Tablet) (11/26/21 13:00) Docusate Sodium Capsule (Colace Capsule) (11/26/21 21:00) Docusate Sodium Capsule (Colace Capsule) (11/26/21 13:00) Bisacodyl Suppository (Dulcolax Supposit (11/26/21 13:00) Lactulose Oral Solution (Enulose Oral So (11/26/21 13:00) Na Phos/Na Biphos Enema (Fleet Enema Derek (11/26/21 13:00) Guaifenesin/Codeine Syrup (Robitussin Ac (11/26/21 13:00) Loperamide Tablet (Imodium Tablet) (11/26/21 13:00) Melatonin Tablet (Melatonin Tablet) (11/26/21 13:00) Polyethylene Glycol Powder Pkt (Miralax (11/26/21 21:00) Ondansetron Oral Dissolve Tab (Zofran (11/26/21 13:00) Senna S Tablet (Senokot S Tablet) (11/26/21 21:00) Acetaminophen Tablet/Caplet (Tylenol T (11/26/21 13:00) Code/Resuscitation (11/26/21 12:56) Initiate Admission Nursing Pro .admission (11/26/21 12:56) Admission Arrival Bed Request (11/26/21 16:22) Albuterol Pre-Mix Nebs (Rt) (Proventil (11/26/21 17:00) Atorvastatin Tablet (Lipitor Tablet) (11/27/21 09:00) Citalopram Tablet (Celexa Tablet) (11/27/21 09:00) Donepezil Tablet (Aricept Tablet) (11/26/21 21:00) Duloxetine Capsule (Cymbalta Capsule) (11/26/21 21:00) Folic Acid Tablet (Folic Acid Tablet) (11/27/21 09:00) Furosemide Tablet (Lasix Tablet) (11/27/21 09:00) Albuterol/Ipra Inhalation Soln (Duoneb I (11/26/21 17:00) Levothyroxine Tablet (Synthroid Tablet) (11/27/21 06:30) Lisinopril Tablet (Zestril Tablet) (11/27/21 09:00) Memantine Tablet (Namenda Tablet) (11/27/21 09:00) Nicotine Patch (Nicoderm Patch) (11/27/21 09:00) Prednisone Tablet (Deltasone Tablet) (11/27/21 08:00) Rivaroxaban Tablet (Xarelto Tablet) (11/26/21 18:00) Spironolactone Tablet (Aldactone Tablet) (11/27/21 09:00) (Nf) Budesonide/Formoterol Fumarate (Sym (11/26/21 21:00) (Nf) Doxycycline Hyclate (11/26/21 21:00) (Nf) Fluticasone Propionate (Flonase All (11/27/21 09:00) (Nf) Insulin Glargine,Hum.Rec.Anlog (Yunier (11/26/21 21:00) (Nf) Insulin Lispro (Humalog) (11/26/21 18:00) (Nf) Metformin Hcl (Metformin Hcl Er) (11/26/21 18:00) (Nf) Tiotropium [place] (Spiriva Respima (11/27/21 09:00) (Nf) [Tussionex] (11/26/21 17:00) Accucheck Achs ACHS (11/26/21 16:47) Insulin Aspart (Novolog) (Novolog (Charg (11/26/21 18:00) Cpap (Set Up) (11/26/21 16:45) Rt Request For Service (11/26/21 16:45) Patch Removal (Patch Removal) (11/27/21 08:59) Doxycycline Hyclate Tablet (Vibramycin T (11/26/21 21:00) Hydrocodone/Chlorphen Susp (Tussionex [place] (11/26/21 17:15) Fluticasone Nasal [place]chs (Flonase Nasal S (11/27/21 09:00) Metformin Xr Tablet (Glucophage Xr Table (11/26/21 18:00) Umeclidinium [place] Inhaler (Incruse El (11/27/21 08:00) Fluticasone/Salmeterol 232-14 (Airduo Re (11/26/21 21:00) Insulin Determir (Per Unit) (Levemir (Pe (11/26/21 21:00) Insulin Aspart (Novolog) (Novolog (Charg (11/26/21 17:30) Metformin Xr Tablet (Glucophage Xr Table (11/26/21 18:00) Insulin Determir (Per Unit) (Levemir (Pe (11/27/21 21:00) Patient Visit (11/27/21 ) Speech Sound Lang Comp (11/27/21 ) Treat. Speech/Lang/Voice (11/27/21 ) Patient Visit (11/27/21 ) Pt Eval Moderate Complexity (11/27/21 ) Functional Activities, Ea 15 (11/27/21 ) Exercise Therap, Ea 15 Min (11/27/21 ) Cho 75g/M 1snack (21-2400 Juan Miguel) (11/27/21 Lunch) Miconazole 2% Powder (Phytoplex Af 2% Po (11/27/21 21:00) Rehab Nursing Orders: Ongoing Assess. of Cognitive Status, Ongoing Assess. of Function Status, Bladder Management, Bladder Scan, Bladder Training, Bowel Management, Bowel Training, Disease Management & Educaiton, DVT Prophylaxis, Fall Prevention, Fluid/Electrolyte/Nutrition Mgmt, Infection Prevention, Medication Management & Education, Management of Risks & Complications, Management of Skin Intergrity, Nutrition Management, Pain Management, Patient/Family Support, Safety Management Intensity of Therapy to be met Patient to be seen: Min.3h per day/5 of 7d PT IPOC Problem List: Activity Tolerance, Functional Strength, Safety, Balance, Gait, Transfer, Bed Mobility, ROM Treatment Plan: Continue Plan of Care Bed Mobility, Education, Functional Activity Jerrod, Functional Strength, Group Therapy, Gait, Safety, Therapeutic Exercise, Transfers Treatment Duration: Dec 18, 2021 Frequency: At least 5 of 7 days/Wk (IRF) Estimated Hrs Per Day: 1.5 hours per day OT IPOC Problems: Decreased Activ Tolerance, Decreased Safety Aware, Impaired Cogni tion, Impaired Funct Balance, Impaired I ADL's, Impaired Self-Care Skills OT Treatment, Training and Edu: Yes Plan of Care: ADL Retraining, Cognitive Retraining, Functional Mobility, Group Exercise/Act as Ind, UE Funct Exercise/Act Treatment Duration: Dec 19, 2021 Frequency: At least 5 of 7 days/Wk (IRF) Estimated Hrs Per Day: 1.[address] IPOC Speech Therapy Treatment Plan: Continue Plan of Care Treatment Duration: Dec 11, 2021 Frequency: Modified Program (IRF) Estimated Hrs Per Day: .5 hour per day Teletypesetter Operator/Case Mgmt Teletypesetter Operator/Case Managemen: Discharge Planning Dietitian/Director Of Recruitment And Admissions Dietitian/Director Of Recruitment And Admissions to monitor nutritional status and make changes and/or recommendations as needed and work with speech pathology on dietary upgrades as the occur. 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
--- NOTE | 2021-11-28 06:18 | PM&R Progress Note ---
Subjective HPI/CC On Admission Date Seen by Provider: Nov 28, 2021 Time Seen by Provider: 12:00 Subjective/Events-last exam 11/28/2021: Pt doing well Bowels moved yesterday Increased sugars so I will start the Novolog 8 units before meals since she had been Hypoglycemic IS ordered 11/27/21: Pt is doing about the same Very forgetful, very impulsive Holding insulin due to hypoglycemia Chair and bed alarm maintained Review of Systems General: Fatigue, Malaise Pulmonary: Dyspnea, Cough Objective Exam Vital Signs Vital Signs Date Time Temp Pulse Resp B/P (MAP) Pulse Ox O2 Delivery O2 Flow Rate FiO2 11/28/21 20:01 36.5 84 20 117/59 (78) 92 Nasal Cannula 3.00 Capillary Refill : General Appearance: No Apparent Distress, WD/WN, Chronically ill, Obese HEENT: PERRL/EOMI, Normal ENT Inspection, Pharynx Normal Neck: Full Range of Motion, Normal Inspection, Non Tender, Supple, Carotid Bruit Respiratory: Chest Non Tender, Lungs Clear, No Accessory Muscle Use, No Respiratory Distress, Decreased Breath Sounds Cardiovascular: Regular Rate, Rhythm, No Edema, No Gallop, No JVD, No Murmur, N ormal Peripheral Pulses Gastrointestinal: Normal Bowel Sounds, No Organomegaly, No Pulsatile Mass, Non Tender, Soft Back: Normal Inspection, No CVA Tenderness, No Vertebral Tenderness Extremity: Normal Capillary Refill, Normal Inspection, Normal Range of Motion, Non Tender, No Calf Tenderness, No Pedal Edema Neurologic/Psychiatric: Alert, Oriented x3, No Motor/Sensory Deficits, Normal Mood/Affect, Depressed Affect Skin: Normal Color, Warm/Dry Lymphatic: No Adenopathy Results/Procedures Lab Patient resulted labs reviewed. FIM Transfers Therapy Code Descriptions/Definitions Functional [place] Measure: 0=Not Assessed/NA 4=Minimal Assistance 1=Total Assistance 5=Supervision or Setup 2=Maximal Assistance 6=Modified [place] 3=Moderate Assistance 7=Complete IndependenceSCALE: Activities may be completed with or without assistive devices. 3-Yaxnrfovpz-pjiagty completes the activity by him/herself with no assistance from a helper. 5-Set-up or Clean-up Assistance-helper sets up or cleans up; patient completes activity. [place] assists only prior to or following the activity. 4-Supervision or Touching Assistance-helper provides verbal cues and/or touching/steadying and/or contact guard assistance as patient completes acti vity. Assistance may be provided throughout the activity or intermittently. 3-Partial/Moderate Assistance-helper does LESS THAN HALF the effort. [place] lifts, holds or supports trunk or limbs, but provides less than half the effort. 2-Substantial/Maximal Assistance-helper does MORE THAN HALF the effort. [place] lifts or holds trunk or limbs and provides more than half the effort. 9-Krrkqstda-bnoosw does ALL the effort. Patient does none of the effort to complete the activity. Or, the assistance of 2 or more helpers is required for the patient to complete the activity. If activity was not attempted, code reason: 7-Patient Refused. 9-Not Applicable-not attempted and the patient did not perform the activity before the current illness, exacerbation or injury. 10-Not Attempted due to Environmental Limitations-(lack of equipment, weather restraints, etc.). 88-Not Attempted due to Medical Conditions or Safety Concerns. Roll Left to Right (QC): 6 Sit to Lying (QC): 6 Sit to Stand (QC): 4 Chair/Xob-pc-Xmbme Xfer(QC): 4 Car Transfer (QC): 4 Gait Training Does the Patient Walk?: Yes Walk 10 feet (QC): 4 Walk 50 ft with 2 Turns(QC): 4 Walk 150 ft (QC): 88 Walking 10ft/uneven surface-QC: 4 Gait Assistive Device: FWW Wheelchair Training Wheel 50 ft with 2 turns (QC): 3 Wheel 150 ft (QC): 3 Type of Wheelchair: Manual Stair Training #of Steps: 1 1 Step (curb) (QC): 4 4 Steps (QC): 88 12 Steps (QC): 88 Balance Picking up an Object (QC): 4 (CGA with public records researcher) ADL-Treatment Eating (QC): 6 Oral Hygiene (QC): 4 (SBA) Shower/Bathe Self (QC): 4 (SBA. Min v/c's required for safety) Upper Body Dressing (QC): 4 (SBA) Lower Body Dressing (QC): 2 (Max A. Pt able to thread R foot but required assistance threading L foot and hiking brief up. ) On/Off Footwear (QC): 3 (Min A. Pt able to doff both gripper socks and don R foot but required assistance threading and hiking L gripper sock.) Toileting Hygiene (QC): 4 (SBA) Assessment/Plan Assessment and Plan Assess & Plan/Chief Complaint Assessment: COPD myopathy Obesity BETTE on CPAP O2 dependence Dementia HTN HLP DM insulin dependence Plan: SSI A PT OT per protocol Pain management Fall risk 11/27/21: Hold insulin Monitor pain 11/28: Monitor closely Add back in insulin (1) Myopathy ALONDRA FLORES DO Nov 28, 2021 06:18
[2021-11-28] MEDS: LEVOTHYROXINE 150 MCG (LEVOTHROID) TAB PO SCH (06:40)
[2021-11-28] MEDS: inSUlin ASPART (NovoLOG) 1 UNIT/0.01 ML (CHARGE PER UNIT) SC SCH ×6 (06:40→20:16)
[2021-11-28 07:26] VITALS: BP 138/74
[2021-11-28] MEDS: metFORMIN XR 500 MG (GLUCOPHAGE XR) TAB PO SCH ×2 (07:46→17:28)
[2021-11-28] MEDS: FOLIC ACID 1 MG TAB PO SCH (07:46)
[2021-11-28] MEDS: lisINopril 20 MG (PRINIVIL) TABLET PO SCH (07:46)
[2021-11-28] MEDS: predniSONE 10 MG TAB PO SCH (07:47)
[2021-11-28] MEDS: DULoxetine 30 MG (CYMBALTA) CAP PO SCH ×2 (07:47→20:16)
[2021-11-28] MEDS: FUROSEMIDE 20 MG (LASIX) TAB PO SCH (07:47)
[2021-11-28] MEDS: DOXYCYCLINE 100 MG (VIBRAMYCIN) TABLET PO SCH ×2 (07:47→20:16)
[2021-11-28] MEDS: MEMANTINE 5 MG (NAMENDA) TABLET PO SCH (07:47)
[2021-11-28] MEDS: SPIRONOLACTONE 25 MG (ALDACTONE) TAB PO SCH (07:47)
[2021-11-28] MEDS: NICOTINE 21 MG (NICODERM) PATCH TD SCH (07:47)
[2021-11-28] MEDS: FLUTICASONE NASAL SPRAY (FLONASE) 16 GM BTL NS SCH (07:50)
[2021-11-28] MEDS: NICOTINE PATCH REMOVAL TP SCH (07:51)
[2021-11-28] MEDS: DOCUSATE SODIUM 100 MG (COLACE) CAP PO SCH ×2 (07:52→20:16)
[2021-11-28] MEDS: SENNA W/DOCUSATE (SENOKOT S) TABLET PO SCH ×2 (07:52→20:16)
[2021-11-28] MEDS: polyethylene glycoL POWDER 17 GM (MIRALAX) PACK PO SCH ×2 (07:52→20:17)
[2021-11-28] MEDS: MICONAZOLE 2% POWDER (DESENEX AF) 90 GM TOP SCH ×2 (07:53→20:17)
[2021-11-28] MEDS: RT--FLUTICASONE/SALMETEROL 232-14 (AIRDUO RespiCLICK) IH SCH ×2 (08:23→19:04)
[2021-11-28] MEDS: UMECLIDINIUM BROMIDE (INCRUSE ELLIPTA) 7'S IH SCH (08:23)
--- NOTE | 2021-11-28 10:09 | Physical Therapy Daily Note ---
PT Daily Note-Current Subjective Upon arrival, pt was seated in recliner. Pt stated she sleep fine. Pt agrees to PT. Pain Comment: Pt reports no pain at this time. Mental Status Patient Orientation: Person, Confused Attachments: Oxygen (3L) Transfers SCALE: Activities may be completed with or without assistive devices. 1-Yhqvsncgjb-spxhsaz completes the activity by him/herself with no assistance from a helper. 5-Set-up or Clean-up Assistance-helper sets up or cleans up; patient completes activity. [place] assists only prior to or following the activity. 4-Supervision or Touching Assistance-helper provides verbal cues and/or touching/steadying and/or contact guard assistance as patient completes activity. Assistance may be provided throughout the activity or intermittently. 3-Partial/Moderate Assistance-helper does LESS THAN HALF the effort. [place] lifts, holds or supports trunk or limbs, but provides less than half the effort. 2-Substantial/Maximal Assistance-helper does MORE THAN HALF the effort. [place] lifts or holds trunk or limbs and provides more than half the effort. 9-Krvzhievs-ypegbv does ALL the effort. Patient does none of the effort to complete the activity. Or, the assistance of 2 or more helpers is required for the patient to complete the activity. If activity was not attempted, code reason: 7-Patient Refused. 9-Not Applicable-not attempted and the patient did not perform the activity before the current illness, exacerbation or injury. 10-Not Attempted due to Environmental Limitations-(lack of equipment, weather restraints, etc.). 88-Not Attempted due to Medical Conditions or Safety Concerns. Sit to Stand (QC): 4 Toilet Transfer (QC): 4 Gait Training Does the Patient Walk?: Yes Distance: 252' Walk 10 feet (QC): 4 Walk 50 ft with 2 Turns(QC): 4 Walk 150 ft (QC): 4 Gait Persons Needed: 1 Gait Assistive Device: FWW Pt ambulated from room to cohn with windows to a seated RB, them ambulated back down the cohn, to gym. Pt had a steady, reciprocal GT pattern, pt demonstrated no LOB. Pt states that she doesn't usually use a FWW at home. Wheelchair Training Does the Pt Use a Wheelchair?: No Exercises Supine Ex: Ankle pumps, Quad Set, Glut sets, Heel Slides, Short Arc Quads, Stra ight leg raise Supine Reps: 20 Seated Therapy Exercises: Ankle pumps, Sit to stand (5), Long arc quads, Hip flexion, Hamstring Curls, Hip abd/add Seated Reps: 20 NuStep Minutes: 5 Treatments Pt performed and completed all Exs listed above. Pt ambulated from room to cohn with windows to a seated RB, them ambulated back down the cohn, to gym, pt was on NuStep for 5 min & 30sec. During PT session pts respiratory therapist arrived with meds. Pt used BR 2x during tx session, and required assistance with wiping herself. Once tx session was concluded pt, requested that her breakfast be reheated and needed a nail file. Pt had call light and tray in reach and all needs were met. Assessment Current Status: Good Progress Pt has a tendency to stand up and ambulate without FWW, and before GT belt is on. Pt may have had some confusion, pt almost sat in trash can thinking it was the toilet. Pt would benefit from continued PT to improve on activity tolerance and strength. PT Short Term Goals Short Term Goals Time Frame: Dec 04, 2021 Roll Left & Right: 6 Sit to lyin Lying to sitting on side of be: 6 Sit to stand: 4 (SBA) Chair/keh-tl-ovnds transfer: 4 (SBA) Walk 10 feet: 4 (SBA) Walk 50 feet with two turns: 4 (SBA) Walk 150 feet: 4 (SBA) PT Snf Goals Snf Goals PT Snf Goals Time Frame: Dec 18, 2021 Roll Left & Right (QC): 6 Sit to Lying (QC): 6 Lying-Sitting on Side/Bed(QC): 6 Sit to Stand (QC): 6 Chair/Jfc-tq-Bmjfy Xfer(QC): 6 Toilet Transfer (QC): 6 Car Transfer (QC): 6 Does the Patient Walk: Yes Walk 10 feet (QC): 6 Walk 50ft with 2 Turns (QC): 6 Walk 150 ft (QC): 6 Walking 10ft on Uneven Surface: 6 1 Step (curb) (QC): 4 (SBA) 4 Steps (QC): 4 (SBA) 12 Steps (QC): 88 Picking up an Object (QC): 6 Wheel 50 feet with 2 turns (QC: 9 Wheel 150 feet: 9 PT Plan Problem List Problem List: Activity Tolerance, Functional Strength Treatment/Plan Treatment Plan: Continue Plan of Care Treatment Plan: Bed Mobility, Education, Functional Activity Jerrod, Functional Strength, Group Therapy, Gait, Safety, Therapeutic Exercise, Transfers Treatment Duration: Dec 18, 2021 Frequency: At least 5 of 7 days/Wk (IRF) Estimated Hrs Per Day: 1.5 hours per day Patient and/or Family Agrees t: Yes Safety Risks/Education Patient Education: Transfer Techniques, Correct Positioning, Safety Issues Teaching Recipient: Patient Teaching Methods: Demonstration, Discussion Response to Teaching: Verbalize Understanding, Return Demonstration Time/GCodes Time In: 800 Time Out: 815 Total Billed Treatment Time: 75 Total Billed Treatment 1, 2 (30) EX, 15 GT, 2 (30) FA RAULITO MOBLEY SODIUM METHYLATE OPERATOR Nov 28, 2021 10:09
--- NOTE | 2021-11-28 11:25 | Speech Therapy Daily Note ---
Speech Daily Progress Note Subjective Date Seen by Provider: Nov 28, 2021 Time Seen by Provider: 09:15 The patient was seated upright in her recliner, awake and alert upon entrance to her room by the clinician. The patient greeted the clinician appropriately and was agreeable to participation in the cognitive linguistic treatment session. Objective - Orientation: The patient was oriented to month, year, and place. The patient was not oriented to date, day of the week, or city. - Review/ Awareness of Current Deficits, Barriers to Discharge: The clinician and patient reviewed her current deficits and rationale for admission. The patient was able to identify her admission diagnosis, stating, "I just got real down." The patient stated she is unable to currently shower alone but does feel she can walk to and from the restroom, independently. The clinician reviewed with the patient her current safety protocols, including the chair/bed alarm and the necessity to use the call light for assistance with mobility. The patient was unable to independently locate the call light, therefore, complete review and instruction of call light use were provided by the clinician. The patient does state, "I probably could use some extra help at home when I get out of here if I can get it." Assessment Assessment Current Status: Fair Progress Treatment Plan Continue Plan of Care Speech Short Term Goals Short Term Goals Short Term Goals 1. The patient will demonstrate 80% accuracy with memory exercises provided mild clinician verbal and visual cueing. Time Frame-STG: One Week. Speech Meat Press Operator Goals Fpc Goals 1. The patient will display improved cognitive linguistic skills for safe discharge to the least restrictive environment. Time Frame: Two Weeks. Speech-Plan Treatment Plan Speech Therapy Treatment Plan: Continue Plan of Care Treatment Duration: Dec 11, 2021 Frequency: Modified Program (IRF) Estimated Hrs Per Day: .5 hour per day Rehab Potential: Fair Safety Risks/Education Teaching Recipient: Patient Teaching Methods: Demonstration, Discussion Response to Teaching: Verbalize Understanding, Return Demonstration Education Topics Provided: Safety Protocol, Use of Call Light Time Speech Therapy Time In: 09:15 Speech Therapy Time Out: 09:45 Total Billed Time: 30 Billed Treatment Time [place] Nov 28, 2021 11:25
--- NOTE | 2021-11-28 11:40 | Occupational Ther Daily Note ---
OT Current Status-Daily Note Subjective Pt alert, sitting in recliner. Pt agrees to therapy. No c/o pain. Mental Status/Objective Patient Orientation: Person Attachments: Oxygen (3L) ADL-Treatment Pt declines bathing or dressing. Pt requests to use bathroom. Pt aware of O2 tubing and making sure where it is when ambulating or transferring. Supervision for toileting, 2x's during session. Stood at sink to wash hands, requested to complete oral care after working in the gym. Pt stood at sink, completed oral care independently. Pt educated on using sock aide to don socks. Able to demonstrated understanding of using sock aide, will need continued education to ensure proficiency. No LOB during tasks. After therapy, pt sitting in recliner with call light/phone in reach. All needs met in room. Therapy Code Descriptions/Definitions Functional [place] Measure: 0=Not Assessed/NA 4=Minimal Assistance 1=Total Assistance 5=Supervision or Setup 2=Maximal Assistance 6=Modified [place] 3=Moderate Assistance 7=Complete IndependenceSCALE: Activities may be completed with or without assistive devices. 1-Njyurykllm-vebmhlq completes the activity by him/herself with no assistance from a helper. 5-Set-up or Clean-up Assistance-helper sets up or cleans up; patient completes activity. [place] assists only prior to or following the activity. 4-Supervision or Touching Assistance-helper provides verbal cues and/or touching/steadying and/or contact guard assistance as patient completes activity. Assistance may be provided throughout the activity or intermittently. 3-Partial/Moderate Assistance-helper does LESS THAN HALF the effort. [place] lifts, holds or supports trunk or limbs, but provides less than half the effort. 2-Substantial/Maximal Assistance-helper does MORE THAN HALF the effort. [place] lifts or holds trunk or limbs and provides more than half the effort. 9-Tmwonfwhx-glnjwf does ALL the effort. Patient does none of the effort to complete the activity. Or, the assistance of 2 or more helpers is required for the patient to complete the activity. If activity was not attempted, code reason: 7-Patient Refused. 9-Not Applicable-not attempted and the patient did not perform the activity before the current illness, exacerbation or injury. 10-Not Attempted due to Environmental Limitations-(lack of equipment, weather restraints, etc.). 88-Not Attempted due to Medical Conditions or Safety Concerns. Oral Hygiene (QC): 4 (Supervision) On/Off Footwear: 4 Other Treatment Pt ambulated using FWW to therapy gym. Completed arm bike for 10 min at 25 gaona resistance while participating in activity working on home safety by verbalizing answers to questions. Pt required verbal cues to answer 90% of the questions, but when answers where completed pt could describe how or what the answer was used for or where to find in home. Pt then working on fine motor skills and strengthening tasks that incorporated problem solving, sequencing, memory. Pt required multiple tries before catching on to task then was able to complete some with minimal cues then would fatigue and require increased cues to complete cognitive portion of task. Education OT Patient Education: Use of adapted equipment Teaching Recipient: Patient Teaching Methods: Demonstration, Discussion Response to Teaching: Verbalize Understanding, Return Demonstration, Reinforcement Needed OT Short Term Goals Short Term Goals Time Frame: Dec 19, 2021 Lower body dressin Putting on/taking off footwear: 4 OT Mcfp Goals Mcfp Goals Time Frame: Dec 19, 2021 Eating (QC): 6 Oral Hygiene (QC): 6 Toileting Hygiene (QC): 6 Shower/Bathe Self (QC): 6 Upper Body Dressing (QC): 6 Lower Body Dressing (QC): 6 On/Off Footwear (QC): 6 Additional Goals: 1-Demonstrate ADL Tasks, 2-Verbalize Understanding, 3- ImproveStrength/Jerrod 1=Demonstrate adherence to instructed precautions during ADL tasks. 2=Patient will verbalize/demonstrate understanding of assistive devices/modifications for ADL. 3=Patient will improve strength/tolerance for activity to enable patient to perform ADL's. OT Education/Plan Problem List/Assessment Assessment: Decreased Activ Tolerance, Decreased UE Strength, Impaired Cognition, Impaired Self-Care Skills Discharge Recommendations Plan/Recommendations: Continue POC Equpiment Recommendations-D/C: Hip Kit (with wide sock aide) Treatment Plan/Plan of Care Patient would benefit from OT for education, treatment and training to promote independence in ADL's, mobility, safety and/or upper extremity function for ADL's. Plan of Care: ADL Retraining, Cognitive Retraining, Functional Mobility, Group Exercise/Act as Ind, UE Funct Exercise/Act Treatment Duration: Dec 19, 2021 Frequency: At least 5 of 7 days/Wk (IRF) Estimated Hrs Per Day: 1.5 hours per day Rehab Potential: Fair Time/GCodes Start Time: 10:05 Stop Time: 11:20 Total Time Billed (hr/min): 75 Billed Treatment Time 1 visit-ADL 2 (30 min) EX 3 (75 min) JESI GRACE Nov 28, 2021 11:40
[2021-11-28] MEDS: RIVAROXABAN 20 MG TABLET (XARELTO) PO SCH (17:28)
[2021-11-28 20:01] VITALS: BP 117/59
[2021-11-28] MEDS: DONEPEZIL 10 MG (ARICEPT) TAB PO SCH (20:16)
--- NOTE | 2021-11-29 06:08 | PM&R Progress Note ---
Subjective HPI/CC On Admission Date Seen by Provider: Nov 29, 2021 Time Seen by Provider: 11:00 Subjective/Events-last exam 11/29/2021: Patient doing well Blood sugars elevated so added long-acting twice daily Eating and drinking well Not as impulsive Nebulizers twice daily 11/28/2021: Pt doing well Bowels moved yesterday Increased sugars so I will start the Novolog 8 units before meals since she had been Hypoglycemic IS ordered 11/27/21: Pt is doing about the same Very forgetful, very impulsive Holding insulin due to hypoglycemia Chair and bed alarm maintained Review of Systems General: Fatigue, Malaise Gastrointestinal: Nausea Objective Exam Vital Signs Vital Signs Date Time Temp Pulse Resp B/P (MAP) Pulse Ox O2 Delivery O2 Flow Rate FiO2 11/29/21 20:00 91 Nasal Cannula 3.00 11/29/21 19:38 36.9 71 16 Capillary Refill : General Appearance: No Apparent Distress, WD/WN, Chronically ill, Obese HEENT: PERRL/EOMI, Normal ENT Inspection, Pharynx Normal Neck: Full Range of Motion, Normal Inspection, Non Tender, Supple, Carotid Bruit Respiratory: Chest Non Tender, Lungs Clear, No Accessory Muscle Use, No Respiratory Distress, Decreased Breath Sounds Cardiovascular: Regular Rate, Rhythm, No Edema, No Gallop, No JVD, No Murmur, Normal Peripheral Pulses Gastrointestinal: Normal Bowel Sounds, No Organomegaly, No Pulsatile Mass, Non Tender, Soft Back: Normal Inspection, No CVA Tenderness, No Vertebral Tenderness Extremity: Normal Capillary Refill, Normal Inspection, Normal Range of Motion, Non Tender, No Calf Tenderness, No Pedal Edema Neurologic/Psychiatric: Alert, Oriented x3, No Motor/Sensory Deficits, Normal Mood/Affect, Depressed Affect Skin: Normal Color, Warm/Dry Lymphatic: No Adenopathy Results/Procedures Lab Patient resulted labs reviewed. FIM Transfers Therapy Code Descriptions/Definitions Functional [place] Measure: 0=Not Assessed/NA 4=Minimal Assistance 1=Total Assistance 5=Supervision or Setup 2=Maximal Assistance 6=Modified [place] 3=Moderate Assistance 7=Complete IndependenceSCALE: Activities may be completed with or without assistive devices. 3-Tpjvyserod-qtmnzfm completes the activity by him/herself with no assistance from a helper. 5-Set-up or Clean-up Assistance-helper sets up or cleans up; patient completes activity. [place] assists only prior to or following the activity. 4-Supervision or Touching Assistance-helper provides verbal cues and/or touching/steadying and/or contact guard assistance as patient completes activity. Assistance may be provided throughout the activity or intermittently. 3-Partial/Moderate Assistance-helper does LESS THAN HALF the effort. [place] lifts, holds or supports trunk or limbs, but provides less than half the effort. 2-Substantial/Maximal Assistance-helper does MORE THAN HALF the effort. [place] lifts or holds trunk or limbs and provides more than half the effort. 0-Eomcvqowf-uctkal does ALL the effort. Patient does none of the effort to complete the activity. Or, the assistance of 2 or more helpers is required for the patient to complete the activity. If activity was not attempted, code reason: 7-Patient Refused. 9-Not Applicable-not attempted and the patient did not perform the activity before the current illness, exacerbation or injury. 10-Not Attempted due to Environmental Limitations-(lack of equipment, weather restraints, etc.). 88-Not Attempted due to Medical Conditions or Safety Concerns. Roll Left to Right (QC): 6 Sit to Lying (QC): 6 Sit to Stand (QC): 4 Chair/Qif-in-Lddqr Xfer(QC): 4 Car Transfer (QC): 4 Gait Training Does the Patient Walk?: Yes Distance: 252' Walk 10 feet (QC): 4 Walk 50 ft with 2 Turns(QC): 4 Walk 150 ft (QC): 4 Walking 10ft/uneven surface-QC: 4 Gait Persons Needed: 1 Gait Assistive Device: FWW Wheelchair Training Does the Pt Use a Wheelchair?: No Wheel 50 ft with 2 turns (QC): 3 Wheel 150 ft (QC): 3 Type of Wheelchair: Manual Stair Training #of Steps: 1 1 Step (curb) (QC): 4 4 Steps (QC): 88 12 Steps (QC): 88 Balance Picking up an Object (QC): 4 (CGA with release coordinator) ADL-Treatment Eating (QC): 6 Oral Hygiene (QC): 4 (Supervision) Shower/Bathe Self (QC): 4 (SBA. Min v/c's required for safety) Upper Body Dressing (QC): 4 (SBA) Lower Body Dressing (QC): 2 (Max A. Pt able to thread R foot but required assistance threading L foot and hiking brief up. ) On/Off Footwear (QC): 4 Toileting Hygiene (QC): 4 (SBA) Assessment/Plan Assessment and Plan Assess & Plan/Chief Complaint Assessment: COPD myopathy Obesity BETTE on CPAP O2 dependence Dementia HTN HLP DM insulin dependence Plan: SSI A PT OT per protocol Pain management Fall risk 11/27/21: Hold insulin Monitor pain 11/28: Monitor closely Add back in insulin 11/29/2021: Added long-acting insulin Supportive care (1) Myopathy ALONDRA FLORES DO Nov 29, 2021 06:08
[2021-11-29] MEDS: LEVOTHYROXINE 150 MCG (LEVOTHROID) TAB PO SCH (06:44)
[2021-11-29] MEDS: inSUlin ASPART (NovoLOG) 1 UNIT/0.01 ML (CHARGE PER UNIT) SC SCH ×7 (06:45→20:12)
[2021-11-29 07:02] VITALS: BP 144/64
[2021-11-29] MEDS: RT--FLUTICASONE/SALMETEROL 232-14 (AIRDUO RespiCLICK) IH SCH ×2 (07:24→20:00)
[2021-11-29] MEDS: UMECLIDINIUM BROMIDE (INCRUSE ELLIPTA) 7'S IH SCH (07:25)
[2021-11-29] MEDS: NICOTINE 21 MG (NICODERM) PATCH TD SCH (08:19)
[2021-11-29] MEDS: MEMANTINE 5 MG (NAMENDA) TABLET PO SCH (08:19)
[2021-11-29] MEDS: FUROSEMIDE 20 MG (LASIX) TAB PO SCH (08:20)
[2021-11-29] MEDS: predniSONE 10 MG TAB PO SCH (08:20)
[2021-11-29] MEDS: DOCUSATE SODIUM 100 MG (COLACE) CAP PO SCH ×2 (08:20→20:09)
[2021-11-29] MEDS: DULoxetine 30 MG (CYMBALTA) CAP PO SCH ×2 (08:20→20:09)
[2021-11-29] MEDS: SPIRONOLACTONE 25 MG (ALDACTONE) TAB PO SCH (08:20)
[2021-11-29] MEDS: metFORMIN XR 500 MG (GLUCOPHAGE XR) TAB PO SCH ×2 (08:20→17:16)
[2021-11-29] MEDS: polyethylene glycoL POWDER 17 GM (MIRALAX) PACK PO SCH ×2 (08:21→20:13)
[2021-11-29] MEDS: lisINopril 20 MG (PRINIVIL) TABLET PO SCH (08:21)
[2021-11-29] MEDS: SENNA W/DOCUSATE (SENOKOT S) TABLET PO SCH ×2 (08:21→20:09)
[2021-11-29] MEDS: FOLIC ACID 1 MG TAB PO SCH (08:21)
[2021-11-29] MEDS: DOXYCYCLINE 100 MG (VIBRAMYCIN) TABLET PO SCH ×2 (08:21→20:09)
[2021-11-29] MEDS: MICONAZOLE 2% POWDER (DESENEX AF) 90 GM TOP SCH ×2 (08:22→20:12)
--- NOTE | 2021-11-29 08:30 | Occupational Ther Daily Note ---
OT Current Status-Daily Note Subjective Pt denies pain, agreeable to shower. Appearance Pt returned to sitting in recliner, all needs within reach at OT departure. Mental Status/Objective Patient Orientation: Person, Place Attachments: Oxygen ADL-Treatment Therapy Code Descriptions/Definitions Functional [place] Measure: 0=Not Assessed/NA 4=Minimal Assistance 1=Total Assistance 5=Supervision or Setup 2=Maximal Assistance 6=Modified [place] 3=Moderate Assistance 7=Complete IndependenceSCALE: Activities may be completed with or without assistive devices. 3-Vpjiwverex-twxxnnv completes the activity by him/herself with no assistance from a helper. 5-Set-up or Clean-up Assistance-helper sets up or cleans up; patient completes activity. [place] assists only prior to or following the activity. 4-Supervision or Touching Assistance-helper provides verbal cues and/or touching/steadying and/or contact guard assistance as patient completes activity. Assistance may be provided throughout the activity or intermittently. 3-Partial/Moderate Assistance-helper does LESS THAN HALF the effort. [place] lifts, holds or supports trunk or limbs, but provides less than half the effort. 2-Substantial/Maximal Assistance-helper does MORE THAN HALF the effort. [place] lifts or holds trunk or limbs and provides more than half the effort. 1-Bzneduldb-krodmo does ALL the effort. Patient does none of the effort to complete the activity. Or, the assistance of 2 or more helpers is required for the patient to complete the activity. If activity was not attempted, code reason: 7-Patient Refused. 9-Not Applicable-not attempted and the patient did not perform the activity before the current illness, exacerbation or injury. 10-Not Attempted due to Environmental Limitations-(lack of equipment, weather restraints, etc.). 88-Not Attempted due to Medical Conditions or Safety Concerns. Eating (QC): 5 Shower/Bathe Self (QC): 3 Upper Body Dressing (QC): 5 Lower Body Dressing (QC): 3 On/Off Footwear: 4 Toileting Hygiene (QC): 4 Toilet Transfer (QC): 6 Shower performed; majority completed in sitting. Step by step cues (mod-max) needed for initiation, sequencing, application of soap, rinsing soap off, and thoroughness throughout bathing task. Assist needed to reach bilateral feet, pt likely does not wash feet at home and will let water run down legs (unsure if soap is applied to body at home). Post cues, pt was able to lean back on chair in order to wash under abdominal pannus. Min a for thoroughness provided. Education on hygiene and keeping area clean and dry to prevent further worsening of rash. Clothing donned seated on shower bench. Min a to thread LLE into brief secondary to weakness and impaired flexibility. She was able to stand and clod puller hips without assist, slightly impulsive with task thus needing cues for safety. Post set up, pt able to don nightgown. OT donned bilateral nicolas hose. Pt unable to recall education from previous date on use of sock aid. Mod verbal cues for correct sequencing required, no physical assistance needed. Pt will need continued education to ensure proficiency. Other Treatment Pt participated in UE exercises with 2# dumbbell. Focus on promoting increased strength and endurance needed for functional tasks. 12x12 all planes. Pt does fatigue quicker at shoulder, thus needing AAROM after ~8-9 reps. All movements performed to full range. Min verbal, visual, and tactile cues for correct form. Pt able to count reps indep. Education OT Patient Education: Correct positioning, Energy conservation, Exercise program, Modified ADL techniques, Progress toward Goal/Update tx plan, Purpose of tx/functional activities, Reviewed precautions, Rehab process, Safety issues, Transfer techniques, Use of adapted equipment Teaching Recipient: Patient Teaching Methods: Demonstration, Discussion Response to Teaching: Verbalize Understanding, Return Demonstration, Reinforcement Needed OT Short Term Goals Short Term Goals Time Frame: Dec 19, 2021 Lower body dressin Putting on/taking off footwear: 4 OT Drone Pilot Goals Residential Goals Time Frame: Dec 19, 2021 Eating (QC): 6 Oral Hygiene (QC): 6 Toileting Hygiene (QC): 6 Shower/Bathe Self (QC): 6 Upper Body Dressing (QC): 6 Lower Body Dressing (QC): 6 On/Off Footwear (QC): 6 Additional Goals: 1-Demonstrate ADL Tasks, 2-Verbalize Understanding, 3- ImproveStrength/Jerrod 1=Demonstrate adherence to instructed precautions during ADL tasks. 2=Patient will verbalize/demonstrate understanding of assistive devices/modifications for ADL. 3=Patient will improve strength/tolerance for activity to enable patient to perform ADL's. OT Education/Plan Problem List/Assessment Assessment: Decreased Activ Tolerance, Decreased Safety Aware, Decreased UE Strength, Impaired Cognition, Impaired I ADL's, Impaired Self-Care Skills Discharge Recommendations Plan/Recommendations: Continue POC Treatment Plan/Plan of Care Treatment,Training & Education: Yes Patient would benefit from OT for education, treatment and training to promote independence in ADL's, mobility, safety and/or upper extremity function for ADL's. Plan of Care: ADL Retraining, Cognitive Retraining, Functional Mobility, Group Exercise/Act as Ind, UE Funct Exercise/Act Treatment Duration: Dec 19, 2021 Frequency: At least 5 of 7 days/Wk (IRF) Estimated Hrs Per Day: 1.5 hours per day Rehab Potential: Fair Time/GCodes Start Time: 07:06 Stop Time: 08:36 Total Time Billed (hr/min): 90 Billed Treatment Time 1 visit ADL x4 (55 min) EX x 2 (35 min) Gogo Nettles OT Nov 29, 2021 08:30
[2021-11-29] MEDS: NICOTINE PATCH REMOVAL TP SCH (08:34)
[2021-11-29] MEDS: FLUTICASONE NASAL SPRAY (FLONASE) 16 GM BTL NS SCH (08:36)
--- NOTE | 2021-11-29 12:21 | Physical Therapy Daily Note ---
PT Daily Note-Current Subjective Pt. agrees to Rx, denies any pain. States she lives in [place] but cant remember where exactly. Pt. states she does her own laundry and preps her own meals but has the food delivered. Pain Location: No Pain Reported Mental Status Patient Orientation: Person, Time, Situation Attachments: Oxygen (3L) Transfers SCALE: Activities may be completed with or without assistive devices. 4-Yosmjytvqi-nwsxjzc completes the activity by him/herself with no assistance from a helper. 5-Set-up or Clean-up Assistance-helper sets up or cleans up; patient completes activity. [place] assists only prior to or following the activity. 4-Supervision or Touching Assistance-helper provides verbal cues and/or touching/steadying and/or contact guard assistance as patient completes activity. Assistance may be provided throughout the activity or intermittently. 3-Partial/Moderate Assistance-helper does LESS THAN HALF the effort. [place] lifts, holds or supports trunk or limbs, but provides less than half the effort. 2-Substantial/Maximal Assistance-helper does MORE THAN HALF the effort. [place] lifts or holds trunk or limbs and provides more than half the effort. 9-Mwkectibm-bzgotk does ALL the effort. Patient does none of the effort to complete the activity. Or, the assistance of 2 or more helpers is required for the patient to complete the activity. If activity was not attempted, code reason: 7-Patient Refused. 9-Not Applicable-not attempted and the patient did not perform the activity before the current illness, exacerbation or injury. 10-Not Attempted due to Environmental Limitations-(lack of equipment, weather restraints, etc.). 88-Not Attempted due to Medical Conditions or Safety Concerns. Roll Left & Right (QC): 6 Sit to Lying (QC): 6 Lying to Sitting/Side of Bed(Q: 6 Sit to Stand (QC): 6 Chair/Fff-vg-Yyqtg Xfer(QC): 4 Toilet Transfer (QC): 6 pt. needed assist to mange O2 tubing during TRFs chair to bed Gait Training Does the Patient Walk?: Yes Walk 10 feet (QC): 4 Walk 50 ft with 2 Turns(QC): 4 Walk 150 ft (QC): 4 Gait Persons Needed: 1 Gait Assistive Device: FWW no LOB, 150 ft x 2, 30 ft x 3 with assist for portable O2 only, good use of FWW , no LOB, needs directed as to where she is going etc. Exercises Supine Ex: Bridging, Ankle pumps, Quad Set, Rolling, Glut sets, Lower trunk rotation, Heel Slides, Short Arc Quads, Scooting, Straight leg raise, Hip abd/add Supine Reps: 15 (x2) Seated Therapy Exercises: Ankle pumps, Sit to stand, Long arc quads, Hip flexion, Hip abd/add Seated Reps: 15 (x2) Standing: Hip Abduction, Heel/toe raises, Marching, Mini squats Standing Reps: 12 NuStep Minutes: 8 NuStep Workload: 2 Treatments TRFs, gait, seated, standing and supine ex, toileting, Nustep, in recliner with alarm insitu after Rx, phillips at hand Assessment Current Status: Good Progress functionally stronger and improved, cognitively/memory still needs assist for safety reminders and direction etc PT Short Term Goals Short Term Goals Time Frame: Dec 04, 2021 Roll Left & Right: 6 Sit to lyin Lying to sitting on side of be: 6 Sit to stand: 4 (SBA) Chair/nqc-px-lwiif transfer: 4 (SBA) Walk 10 feet: 4 (SBA) Walk 50 feet with two turns: 4 (SBA) Walk 150 feet: 4 (SBA) PT Commissioning Specialist Goals Commissioning Specialist Goals PT [facility] Goals Time Frame: Dec 18, 2021 Roll Left & Right (QC): 6 Sit to Lying (QC): 6 Lying-Sitting on Side/Bed(QC): 6 Sit to Stand (QC): 6 Chair/Dcv-px-Zflmq Xfer(QC): 6 Toilet Transfer (QC): 6 Car Transfer (QC): 6 Does the Patient Walk: Yes Walk 10 feet (QC): 6 Walk 50ft with 2 Turns (QC): 6 Walk 150 ft (QC): 6 Walking 10ft on Uneven Surface: 6 1 Step (curb) (QC): 4 (SBA) 4 Steps (QC): 4 (SBA) 12 Steps (QC): 88 Picking up an Object (QC): 6 Wheel 50 feet with 2 turns (QC: 9 Wheel 150 feet: 9 PT Plan Treatment/Plan Treatment Plan: Continue Plan of Care Treatment Plan: Bed Mobility, Education, Functional Activity Jerrod, Functional Strength, Group Therapy, Gait, Safety, Therapeutic Exercise, Transfers Treatment Duration: Dec 18, 2021 Frequency: At least 5 of 7 days/Wk (IRF) Estimated Hrs Per Day: 1.5 hours per day Patient and/or Family Agrees t: Yes Safety Risks/Education Patient Education: Gait Training, Transfer Techniques, Correct Positioning, Disease Process, Safety Issues Teaching Recipient: Patient Teaching Methods: Demonstration, Discussion Response to Teaching: Verbalize Understanding, Return Demonstration, Reinforcement Needed Time/GCodes Time In: 1115 Time Out: 1245 Total Billed Treatment Time: 90 Total Billed Treatment 1,FA35m,EX40m,GT15m REDDY ASHLEY PLANNING OFFICIAL Nov 29, 2021 12:21
[2021-11-29] MEDS: RIVAROXABAN 20 MG TABLET (XARELTO) PO SCH (17:16)
[2021-11-29] MEDS: DONEPEZIL 10 MG (ARICEPT) TAB PO SCH (20:09)
[2021-11-30] MEDS: LEVOTHYROXINE 150 MCG (LEVOTHROID) TAB PO SCH (06:28)
[2021-11-30] MEDS: inSUlin ASPART (NovoLOG) 1 UNIT/0.01 ML (CHARGE PER UNIT) SC SCH ×7 (06:28→20:19)
[2021-11-30 07:02] VITALS: BP 104/51
--- NOTE | 2021-11-30 07:07 | PM&R Progress Note ---
Subjective HPI/CC On Admission Date Seen by Provider: Nov 30, 2021 Time Seen by Provider: 12:00 Subjective/Events-last exam 11/30/21: Patient doing pretty well Blood sugars reviewed Patient has a visitor today No pain is reported COPD stable 11/29/2021: Patient doing well Blood sugars elevated so added long-acting twice daily Eating and drinking well Not as impulsive Nebulizers twice daily 11/28/2021: Pt doing well Bowels moved yesterday Increased sugars so I will start the Novolog 8 units before meals since she had been Hypoglycemic IS ordered 11/27/21: Pt is doing about the same Very forgetful, very impulsive Holding insulin due to hypoglycemia Chair and bed alarm maintained Review of Systems General: Fatigue, Malaise Neurological: Confusion Objective Exam Vital Signs Vital Signs Date Time Temp Pulse Resp B/P (MAP) Pulse Ox O2 Delivery O2 Flow Rate FiO2 11/30/21 09:13 Nasal Cannula 3.00 11/30/21 08:23 90 11/30/21 07:02 36.2 63 18 104/51 (68) Capillary Refill : General Appearance: No Apparent Distress, WD/WN, Chronically ill, Obese HEENT: PERRL/EOMI, Normal ENT Inspection, Pharynx Normal Neck: Full Range of Motion, Normal Inspection, Non Tender, Supple, Carotid Bruit Respiratory: Chest Non Tender, Lungs Clear, No Accessory Muscle Use, No Respiratory Distress, Decreased Breath Sounds Cardiovascular: Regular Rate, Rhythm, No Edema, No Gallop, No JVD, No Murmur, Normal Peripheral Pulses Gastrointestinal: Normal Bowel Sounds, No Organomegaly, No Pulsatile Mass, Non Tender, Soft Back: Normal Inspection, No CVA Tenderness, No Vertebral Tenderness Extremity: Normal Capillary Refill, Normal Inspection, Normal Range of Motion, Non Tender, No Calf Tenderness, No Pedal Edema Neurologic/Psychiatric: Alert, Oriented x3, No Motor/Sensory Deficits, Normal Mood/Affect, Depressed Affect Skin: Normal Color, Warm/Dry Lymphatic: No Adenopathy Results/Procedures Lab Patient resulted labs reviewed. FIM Transfers Therapy Code Descriptions/Definitions Functional [place] Measure: 0=Not Assessed/NA 4=Minimal Assistance 1=Total Assistance 5=Supervision or Setup 2=Maximal Assistance 6=Modified [place] 3=Moderate Assistance 7=Complete IndependenceSCALE: Activities may be completed with or without assistive devices. 1-Ywfxatxdit-qsvsupt completes the activity by him/herself with no assistance from a helper. 5-Set-up or Clean-up Assistance-helper sets up or cleans up; patient completes activity. [place] assists only prior to or following the activity. 4-Supervision or Touching Assistance-helper provides verbal cues and/or touching/steadying and/or contact guard assistance as patient completes activity. Assistance may be provided throughout the activity or intermittently. 3-Partial/Moderate Assistance-helper does LESS THAN HALF the effort. [place] lifts, holds or supports trunk or limbs, but provides less than half the effort. 2-Substantial/Maximal Assistance-helper does MORE THAN HALF the effort. [place] lifts or holds trunk or limbs and provides more than half the effort. 1-Kxipmmvek-ovncnd does ALL the effort. Patient does none of the effort to complete the activity. Or, the assistance of 2 or more helpers is required for the patient to complete the activity. If activity was not attempted, code reason: 7-Patient Refused. 9-Not Applicable-not attempted and the patient did not perform the activity before the current illness, exacerbation or injury. 10-Not Attempted due to Environmental Limitations-(lack of equipment, weather restraints, etc.). 88-Not Attempted due to Medical Conditions or Safety Concerns. Roll Left to Right (QC): 6 Sit to Lying (QC): 6 Sit to Stand (QC): 6 Chair/[place] Xfer(QC): 4 Car Transfer (QC): 4 Gait Training Does the Patient Walk?: Yes Distance: 252' Walk 10 feet (QC): 4 Walk 50 ft with 2 Turns(QC): 4 Walk 150 ft (QC): 4 Walking 10ft/uneven surface-QC: 4 Gait Persons Needed: 1 Gait Assistive Device: FWW Wheelchair Training Does the Pt Use a Wheelchair?: No Wheel 50 ft with 2 turns (QC): 3 Wheel 150 ft (QC): 3 Type of Wheelchair: Manual Stair Training #of Steps: 1 1 Step (curb) (QC): 4 4 Steps (QC): 88 12 Steps (QC): 88 Balance Picking up an Object (QC): 4 (CGA with oil expeller) ADL-Treatment Eating (QC): 5 Oral Hygiene (QC): 4 (Supervision) Shower/Bathe Self (QC): 3 Upper Body Dressing (QC): 5 Lower Body Dressing (QC): 3 On/Off Footwear (QC): 4 Toileting Hygiene (QC): 4 Toilet Transfer (QC): 6 Assessment/Plan Assessment and Plan Assess & Plan/Chief Complaint Assessment: COPD myopathy Obesity BETTE on CPAP O2 dependence Dementia HTN HLP DM insulin dependence Plan: SSI A PT OT per protocol Pain management Fall risk 11/27/21: Hold insulin Monitor pain 11/28: Monitor closely Add back in insulin 11/29/2021: Added long-acting insulin Supportive care 11/30/21: Supportive care Monitor oxygen level Monitor sugar (1) Myopathy ALONDRA FLORES DO Nov 30, 2021 07:07
[2021-11-30] MEDS: UMECLIDINIUM BROMIDE (INCRUSE ELLIPTA) 7'S IH SCH (08:23)
[2021-11-30] MEDS: RT--FLUTICASONE/SALMETEROL 232-14 (AIRDUO RespiCLICK) IH SCH ×2 (08:23→20:43)
[2021-11-30] MEDS: DOXYCYCLINE 100 MG (VIBRAMYCIN) TABLET PO SCH ×2 (08:39→20:18)
[2021-11-30] MEDS: SPIRONOLACTONE 25 MG (ALDACTONE) TAB PO SCH (08:39)
[2021-11-30] MEDS: NICOTINE 21 MG (NICODERM) PATCH TD SCH (08:39)
[2021-11-30] MEDS: DULoxetine 30 MG (CYMBALTA) CAP PO SCH ×2 (08:39→20:19)
[2021-11-30] MEDS: FUROSEMIDE 20 MG (LASIX) TAB PO SCH (08:39)
[2021-11-30] MEDS: MEMANTINE 5 MG (NAMENDA) TABLET PO SCH (08:39)
[2021-11-30] MEDS: predniSONE 10 MG TAB PO SCH (08:39)
[2021-11-30] MEDS: FOLIC ACID 1 MG TAB PO SCH (08:39)
[2021-11-30] MEDS: DOCUSATE SODIUM 100 MG (COLACE) CAP PO SCH ×2 (08:39→20:19)
[2021-11-30] MEDS: metFORMIN XR 500 MG (GLUCOPHAGE XR) TAB PO SCH ×2 (08:40→17:12)
[2021-11-30] MEDS: FLUTICASONE NASAL SPRAY (FLONASE) 16 GM BTL NS SCH (08:42)
[2021-11-30] MEDS: NICOTINE PATCH REMOVAL TP SCH (08:42)
[2021-11-30] MEDS: polyethylene glycoL POWDER 17 GM (MIRALAX) PACK PO SCH ×2 (08:43→20:20)
[2021-11-30] MEDS: MICONAZOLE 2% POWDER (DESENEX AF) 90 GM TOP SCH ×2 (08:44→20:20)
[2021-11-30] MEDS: SENNA W/DOCUSATE (SENOKOT S) TABLET PO SCH ×2 (08:44→20:19)
[2021-11-30] MEDS: lisINopril 20 MG (PRINIVIL) TABLET PO SCH (08:47)
[2021-11-30] MEDS: RIVAROXABAN 20 MG TABLET (XARELTO) PO SCH (17:12)
[2021-11-30 19:49] VITALS: BP 115/67
[2021-11-30] MEDS: DONEPEZIL 10 MG (ARICEPT) TAB PO SCH (20:19)
[2021-12-01] MEDS: inSUlin ASPART (NovoLOG) 1 UNIT/0.01 ML (CHARGE PER UNIT) SC SCH ×7 (06:05→20:26)
[2021-12-01] MEDS: LEVOTHYROXINE 150 MCG (LEVOTHROID) TAB PO SCH (06:05)
--- NOTE | 2021-12-01 07:00 | PM&R Progress Note ---
Subjective HPI/CC On Admission Date Seen by Provider: Dec 01, 2021 Time Seen by Provider: 10:00 Subjective/Events-last exam 12/01/21: Patient remains impulsive Poor immediate recall No pain reported O2 maintained 11/30/21: Patient doing pretty well Blood sugars reviewed Patient has a visitor today No pain is reported COPD stable 11/29/2021: Patient doing well Blood sugars elevated so added long-acting twice daily Eating and drinking well Not as impulsive Nebulizers twice daily 11/28/2021: Pt doing well Bowels moved yesterday Increased sugars so I will start the Novolog 8 units before meals since she had been Hypoglycemic IS ordered 11/27/21: Pt is doing about the same Very forgetful, very impulsive Holding insulin due to hypoglycemia Chair and bed alarm maintained Review of Systems General: Fatigue Neurological: Confusion Objective Exam Vital Signs Vital Signs Date Time Temp Pulse Resp B/P (MAP) Pulse Ox O2 Delivery O2 Flow Rate FiO2 12/01/21 09:14 Nasal Cannula 3.00 12/01/21 08:05 96 12/01/21 07:33 36.1 84 18 122/65 (84) Capillary Refill : General Appearance: No Apparent Distress, WD/WN, Chronically ill, Obese HEENT: PERRL/EOMI, Normal ENT Inspection, Pharynx Normal Neck: Full Range of Motion, Normal Inspection, Non Tender, Supple, Carotid Bruit Respiratory: Chest Non Tender, Lungs Clear, No Accessory Muscle Use, No Respiratory Distress, Decreased Breath Sounds Cardiovascular: Regular Rate, Rhythm, No Edema, No Gallop, No JVD, No Murmur, Normal Peripheral Pulses Gastrointestinal: Normal Bowel Sounds, No Organomegaly, No Pulsatile Mass, Non Tender, Soft Back: Normal Inspection, No CVA Tenderness, No Vertebral Tenderness Extremity: Normal Capillary Refill, Normal Inspection, Normal Range of Motion, Non Tender, No Calf Tenderness, No Pedal Edema Neurologic/Psychiatric: Alert, Oriented x3, No Motor/Sensory Deficits, Normal Mood/Affect, Depressed Affect Skin: Normal Color, Warm/Dry Lymphatic: No Adenopathy Results/Procedures Lab Laboratory Tests 12/01/21 07:26 Patient resulted labs reviewed. FIM Transfers Therapy Code Descriptions/Definitions Functional [place] Measure: 0=Not Assessed/NA 4=Minimal Assistance 1=Total Assistance 5=Supervision or Setup 2=Maximal Assistance 6=Modified [place] 3=Moderate Assistance 7=Complete IndependenceSCALE: Activities may be completed with or without assistive devices. 6-Ryclsbmqrc-sptuyqs completes the activity by him/herself with no assistance from a helper. 5-Set-up or Clean-up Assistance-helper sets up or cleans up; patient completes activity. [place] assists only prior to or following the activity. 4-Supervision or Touching Assistance-helper provides verbal cues and/or touching/steadying and/or contact guard assistance as patient completes activity. Assistance may be provided throughout the activity or intermittently. 3-Partial/Moderate Assistance-helper does LESS THAN HALF the effort. [place] lifts, holds or supports trunk or limbs, but provides less than half the effort. 2-Substantial/Maximal Assistance-helper does MORE THAN HALF the effort. [place] lifts or holds trunk or limbs and provides more than half the effort. 0-Fgmufqdfn-hdsiji does ALL the effort. Patient does none of the effort to complete the activity. Or, the assistance of 2 or more helpers is required for the patient to complete the activity. If activity was not attempted, code reason: 7-Patient Refused. 9-Not Applicable-not attempted and the patient did not perform the activity before the current illness, exacerbation or injury. 10-Not Attempted due to Environmental Limitations-(lack of equipment, weather restraints, etc.). 88-Not Attempted due to Medical Conditions or Safety Concerns. Roll Left to Right (QC): 6 Sit to Lying (QC): 6 Sit to Stand (QC): 6 Chair/Qpu-yk-Qcqow Xfer(QC): 4 Car Transfer (QC): 4 Gait Training Does the Patient Walk?: Yes Distance: 252' Walk 10 feet (QC): 4 Walk 50 ft with 2 Turns(QC): 4 Walk 150 ft (QC): 4 Walking 10ft/uneven surface-QC: 4 Gait Persons Needed: 1 Gait Assistive Device: FWW Wheelchair Training Does the Pt Use a Wheelchair?: No Wheel 50 ft with 2 turns (QC): 3 Wheel 150 ft (QC): 3 Type of Wheelchair: Manual Stair Training #of Steps: 1 1 Step (curb) (QC): 4 4 Steps (QC): 88 12 Steps (QC): 88 Balance Picking up an Object (QC): 4 (CGA with heel coverer) ADL-Treatment Eating (QC): 5 Oral Hygiene (QC): 4 (Supervision) Shower/Bathe Self (QC): 3 Upper Body Dressing (QC): 5 Lower Body Dressing (QC): 3 On/Off Footwear (QC): 4 Toileting Hygiene (QC): 4 Toilet Transfer (QC): 6 Assessment/Plan Assessment and Plan Assess & Plan/Chief Complaint Assessment: COPD myopathy Obesity BETTE on CPAP O2 dependence Dementia HTN HLP DM insulin dependence Plan: SSI A PT OT per protocol Pain management Fall risk 11/27/21: Hold insulin Monitor pain 11/28: Monitor closely Add back in insulin 11/29/2021: Added long-acting insulin Supportive care 11/30/21: Supportive care Monitor oxygen level Monitor sugar 12/01/21: Monitor sugar Monitor impulsiveness (1) Myopathy ALONDRA FLORES DO Dec 01, 2021 07:00
[2021-12-01 07:33] VITALS: BP 122/65
[2021-12-01] MEDS: polyethylene glycoL POWDER 17 GM (MIRALAX) PACK PO SCH ×2 (07:49→19:35)
[2021-12-01] MEDS: SENNA W/DOCUSATE (SENOKOT S) TABLET PO SCH ×2 (07:49→19:35)
[2021-12-01] MEDS: metFORMIN XR 500 MG (GLUCOPHAGE XR) TAB PO SCH ×2 (07:49→16:58)
[2021-12-01] MEDS: DULoxetine 30 MG (CYMBALTA) CAP PO SCH ×2 (07:49→20:45)
[2021-12-01] MEDS: predniSONE 10 MG TAB PO SCH (07:49)
[2021-12-01] MEDS: NICOTINE 21 MG (NICODERM) PATCH TD SCH (07:49)
[2021-12-01] MEDS: DOXYCYCLINE 100 MG (VIBRAMYCIN) TABLET PO SCH ×2 (07:49→20:45)
[2021-12-01] MEDS: SPIRONOLACTONE 25 MG (ALDACTONE) TAB PO SCH (07:49)
[2021-12-01] MEDS: DOCUSATE SODIUM 100 MG (COLACE) CAP PO SCH ×2 (07:50→19:35)
[2021-12-01] MEDS: NICOTINE PATCH REMOVAL TP SCH (07:50)
[2021-12-01] MEDS: lisINopril 20 MG (PRINIVIL) TABLET PO SCH (07:50)
[2021-12-01] MEDS: FUROSEMIDE 20 MG (LASIX) TAB PO SCH (07:50)
[2021-12-01] MEDS: MEMANTINE 5 MG (NAMENDA) TABLET PO SCH (07:50)
[2021-12-01] MEDS: FOLIC ACID 1 MG TAB PO SCH (07:50)
[2021-12-01] MEDS: MICONAZOLE 2% POWDER (DESENEX AF) 90 GM TOP SCH ×2 (07:50→20:46)
[2021-12-01 07:51] LABS: BASOPHILS % (AUTO) 0 % (0-10); EOSINOPHILS # (AUTO) 0.2 10^3/uL (0.0-0.3); EOSINOPHILS % (AUTO) 2 % (0-10); HEMATOCRIT 49 % (35-52); HEMOGLOBIN 15.4 g/dL (11.5-16.0); LYMPHOCYTES # (AUTO) 2.5 10^3/uL (1.0-4.0); LYMPHOCYTES % (AUTO) 19 % (12-44); MEAN CORPUSCULAR HEMOGLOBIN 32 pg (25-34); MEAN CORPUSCULAR HGB CONC 31 g/dL (32-36); MEAN CORPUSCULAR VOLUME 101 fL (80-99); MEAN PLATELET VOLUME 10.8 fL (9.0-12.2); MONOCYTES % (AUTO) 7 % (0-12); NEUTROPHILS # (AUTO) 9.3 10^3/uL (1.8-7.8); NEUTROPHILS % (AUTO) 71 % (42-75); PLATELET COUNT 219 10^3/uL (130-400); WHITE BLOOD COUNT 13.1 10^3/uL (4.3-11.0)
[2021-12-01] MEDS: FLUTICASONE NASAL SPRAY (FLONASE) 16 GM BTL NS SCH (07:51)
[2021-12-01] MEDS: UMECLIDINIUM BROMIDE (INCRUSE ELLIPTA) 7'S IH SCH (08:05)
[2021-12-01] MEDS: RT--FLUTICASONE/SALMETEROL 232-14 (AIRDUO RespiCLICK) IH SCH ×2 (08:05→21:27)
[2021-12-01 08:15] LABS: ALBUMIN 3.6 GM/DL (3.2-4.5); BILIRUBIN,TOTAL 0.5 MG/DL (0.1-1.0); CALCIUM 9.3 MG/DL (8.5-10.1); CREATININE SERUM 0.88 MG/DL (0.60-1.30); POTASSIUM 4.1 MMOL/L (3.6-5.0); TOTAL PROTEIN 6.6 GM/DL (6.4-8.2)
--- NOTE | 2021-12-01 08:56 | Speech Therapy Daily Note ---
Speech Daily Progress Note Subjective Date Seen by Provider: Dec 01, 2021 Time Seen by Provider: 08:30 The patient was seated upright in her recliner, awake and alert upon entrance to her room by the clinician. The patient greeted the clinician and was agreeable to participation in the cognitive linguistic treatment session. Objective - Orientation: The patient was independently oriented to month, place, and year. The patient stated she did not know the date, the day of the week was Wednesday and she was currently in [place]. Orientation information was provided by the clinician and practiced throughout the session. The patient was encouraged to use the in-room white board to aid in orientation recall (visual aid). - Delayed Recall (Internal Memory Strategies): The patient was provided five words and the clinician introduced internal memory strategies to aid in recall (visualization, repetition, association). The patient was able to recall three of five words immediately. Following a five minute delay, the patient was able to recall three of five items. The patient's accuracy improved to four of five items with a category cue. Assessment Assessment Current Status: Good Progress Treatment Plan Continue Plan of Care Speech Short Term Goals Short Term Goals Short Term Goals 1. The patient will demonstrate 80% accuracy with memory exercises provided mild clinician verbal and visual cueing. Time Frame-STG: One Week. Speech Sheet Metal Shop Helper Goals Snf Goals 1. The patient will display improved cognitive linguistic skills for safe discharge to the least restrictive environment. Time Frame: Two Weeks. Speech-Plan Treatment Plan Speech Therapy Treatment Plan: Continue Plan of Care Treatment Duration: Dec 11, 2021 Frequency: Modified Program (IRF) Estimated Hrs Per Day: .5 hour per day Rehab Potential: Fair Pt/Family Agrees to Plan: Yes Safety Risks/Education Teaching Recipient: Patient Teaching Methods: Demonstration, Discussion Response to Teaching: Return Demonstration Education Topics Provided: External Memory Strategies. Time Speech Therapy Time In: 08:30 Speech Therapy Time Out: 09:00 Total Billed Time: 30 Billed Treatment Time 1TRELLDARBY SAHRA [place] Dec 01, 2021 08:56
--- NOTE | 2021-12-01 10:01 | Occupational Ther Daily Note ---
OT Current Status-Daily Note Subjective Pt alert, sitting in recliner. Pt declines shower until tomorrow but wants to change clothes. Pt agrees to therapy. No c/o pain. Mental Status/Objective Patient Orientation: Person, Confused (problem solving and memory), Place, Time, Situation Attachments: Oxygen ADL-Treatment After set up, pt able to don/doff shirt by self. Supervision to don/doff pants/ underwear with supervision for safety. With education, pt able to don socks with sock aide. Supervision for toileting. Therapy Code Descriptions/Definitions Functional [place] Measure: 0=Not Assessed/NA 4=Minimal Assistance 1=Total Assistance 5=Supervision or Setup 2=Maximal Assistance 6=Modified [place] 3=Moderate Assistance 7=Complete IndependenceSCALE: Activities may be completed with or without assistive devices. 2-Hcdsevwfpd-eyftfim completes the activity by him/herself with no assistance from a helper. 5-Set-up or Clean-up Assistance-helper sets up or cleans up; patient completes activity. [place] assists only prior to or following the activity. 4-Supervision or Touching Assistance-helper provides verbal cues and/or touching/steadying and/or contact guard assistance as patient completes activity. Assistance may be provided throughout the activity or intermittently. 3-Partial/Moderate Assistance-helper does LESS THAN HALF the effort. [place] lifts, holds or supports trunk or limbs, but provides less than half the effort. 2-Substantial/Maximal Assistance-helper does MORE THAN HALF the effort. [place] lifts or holds trunk or limbs and provides more than half the effort. 9-Bseyhpanu-qrhjmv does ALL the effort. Patient does none of the effort to complete the activity. Or, the assistance of 2 or more helpers is required for the patient to complete the activity. If activity was not attempted, code reason: 7-Patient Refused. 9-Not Applicable-not attempted and the patient did not perform the activity before the current illness, exacerbation or injury. 10-Not Attempted due to Environmental Limitations-(lack of equipment, weather restraints, etc.). 88-Not Attempted due to Medical Conditions or Safety Concerns. Oral Hygiene (QC): 7 Shower/Bathe Self (QC): 7 Upper Body Dressing (QC): 5 Lower Body Dressing (QC): 4 On/Off Footwear: 4 Toileting Hygiene (QC): 4 Toilet Transfer (QC): 4 Other Treatment Pt able to complete sequencing fine motor dexterity/strengthening tasks with one verbal cue for directions then if pt had an obstacle verbal cues needed to help direct to solution. Pt will need assistance with problem solving safety issues at home ie; stove fire, burst pipe, weather conditions etc. Pt able to complete laundry with SBA for safety. Pt sequenced correctly without cues. After therapy, pt sitting in recliner with call light/phone in reach. Doctor in room. Safety measures in place. OT Short Term Goals Short Term Goals Time Frame: Dec 19, 2021 Lower body dressin Putting on/taking off footwear: 4 OT Senior Living Goals Pbx Teacher Goals Time Frame: Dec 19, 2021 Eating (QC): 6 Oral Hygiene (QC): 6 Toileting Hygiene (QC): 6 Shower/Bathe Self (QC): 6 Upper Body Dressing (QC): 6 Lower Body Dressing (QC): 6 On/Off Footwear (QC): 6 Additional Goals: 1-Demonstrate ADL Tasks, 2-Verbalize Understanding, 3- ImproveStrength/[place] 1=Demonstrate adherence to instructed precautions during ADL tasks. 2=Patient will verbalize/demonstrate understanding of assistive devices/modifications for ADL. 3=Patient will improve strength/tolerance for activity to enable patient to perform ADL's. OT Education/Plan Problem List/Assessment Assessment: Decreased Activ Tolerance, Decreased Safety Aware, Decreased UE Strength, Impaired Cognition, Impaired Self-Care Skills Discharge Recommendations Plan/Recommendations: Continue POC Treatment Plan/Plan of Care Patient would benefit from OT for education, treatment and training to promote independence in ADL's, mobility, safety and/or upper extremity function for ADL's. Plan of Care: ADL Retraining, Cognitive Retraining, Functional Mobility, Group Exercise/Act as Ind, UE Funct Exercise/Act Treatment Duration: Dec 19, 2021 Frequency: At least 5 of 7 days/Wk (IRF) Estimated Hrs Per Day: 1.5 hours per day Rehab Potential: Fair Time/GCodes Start Time: 09:00 Stop Time: 10:15 Total Time Billed (hr/min): 75 Billed Treatment Time 1 visit-ADL 2 (30 min) EX 3 (45 min) JESI GRACE Dec 01, 2021 10:01
--- NOTE | 2021-12-01 12:24 | Physical Therapy Daily Note ---
PT Daily Note-Current Subjective Pt sitting in recliner upon arrival. Pt agrees to PT. Pain Location: No Pain Reported Mental Status Patient Orientation: Person, Place Attachments: Oxygen (3L) Transfers SCALE: Activities may be completed with or without assistive devices. 8-Xxdgwqjvkz-idnqtcd completes the activity by him/herself with no assistance from a helper. 5-Set-up or Clean-up Assistance-helper sets up or cleans up; patient completes activity. [place] assists only prior to or following the activity. 4-Supervision or Touching Assistance-helper provides verbal cues and/or touchin g/steadying and/or contact guard assistance as patient completes activity. Assistance may be provided throughout the activity or intermittently. 3-Partial/Moderate Assistance-helper does LESS THAN HALF the effort. [place] lifts, holds or supports trunk or limbs, but provides less than half the effort. 2-Substantial/Maximal Assistance-helper does MORE THAN HALF the effort. [place] lifts or holds trunk or limbs and provides more than half the effort. 0-Bzcjsbmdr-jroayw does ALL the effort. Patient does none of the effort to complete the activity. Or, the assistance of 2 or more helpers is required for the patient to complete the activity. If activity was not attempted, code reason: 7-Patient Refused. 9-Not Applicable-not attempted and the patient did not perform the activity before the current illness, exacerbation or injury. 10-Not Attempted due to Environmental Limitations-(lack of equipment, weather restraints, etc.). 88-Not Attempted due to Medical Conditions or Safety Concerns. Sit to Stand (QC): 5 Weight Bearing Full Weight Bearing Full Weight Bearing Gait Training Does the Patient Walk?: Yes Distance: 100', 200', 300' Walk 10 feet (QC): 5 Walk 50 ft with 2 Turns(QC): 5 Walk 150 ft (QC): 5 Gait Persons Needed: 1 Gait Assistive Device: FWW VC for safety Exercises Seated Therapy Exercises: Ankle pumps, Long arc quads, Hip flexion, Hip abd/add, Glut set Seated Reps: 20 NuStep Minutes: 10 NuStep Workload: 5 Treatments TF to standing, declined need to use BR. Amb. in hallway then completed 1 set of 4 steps. Pt uses NuStep then short RB followed by Seated Ex. Pt amb. in hallway before returning to room. PT reviews written HEP w/pt for Supine & Seated Ex. Pt resting in recliner with all needs met, call light in hand. Assessment Current Status: Fair Progress VC for redirection of task and safety at times. Social awareness is poor. PT Short Term Goals Short Term Goals Time Frame: Dec 04, 2021 Roll Left & Right: 6 Sit to lyin Lying to sitting on side of be: 6 Sit to stand: 4 (SBA) Chair/umr-ym-hlgtd transfer: 4 (SBA) Walk 10 feet: 4 (SBA) Walk 50 feet with two turns: 4 (SBA) Walk 150 feet: 4 (SBA) PT Alf Goals Alf Goals PT Director Of Quality Improvement Goals Time Frame: Dec 18, 2021 Roll Left & Right (QC): 6 Sit to Lying (QC): 6 Lying-Sitting on Side/Bed(QC): 6 Sit to Stand (QC): 6 Chair/Mza-bx-Sgipr Xfer(QC): 6 Toilet Transfer (QC): 6 Car Transfer (QC): 6 Does the Patient Walk: Yes Walk 10 feet (QC): 6 Walk 50ft with 2 Turns (QC): 6 Walk 150 ft (QC): 6 Walking 10ft on Uneven Surface: 6 1 Step (curb) (QC): 4 (SBA) 4 Steps (QC): 4 (SBA) 12 Steps (QC): 88 Picking up an Object (QC): 6 Wheel 50 feet with 2 turns (QC: 9 Wheel 150 feet: 9 PT Plan Problem List Problem List: Activity Tolerance, Safety Treatment/Plan Treatment Plan: Continue Plan of Care Treatment Plan: Bed Mobility, Education, Functional Activity [place], Functional Strength, Group Therapy, Gait, Safety, Therapeutic Exercise, Transfers Treatment Duration: Dec 18, 2021 Frequency: At least 5 of 7 days/Wk (IRF) Estimated Hrs Per Day: 1.5 hours per day Patient and/or Family Agrees t: Yes Safety Risks/Education Patient Education: Gait Training, Transfer Techniques, Correct Positioning, Safety Issues Teaching Recipient: Patient Teaching Methods: Discussion Response to Teaching: Reinforcement Needed Time/GCodes Time In: 1100 Time Out: 1215 Total Billed Treatment Time: 75 Total Billed Treatment 1, EX x2 (35m), GT x2 (30m) & FA (10m) STORM HASTINGS ANALYTICAL STRATEGIST Dec 01, 2021 12:24
[2021-12-01] MEDS ORDERED: CYAN500T8 PO (15:55)
[2021-12-01] MEDS ORDERED: CHOL200074 PO (15:56)
[2021-12-01] MEDS ORDERED: UMEC62.5 IH (15:57)
[2021-12-01] MEDS ORDERED: TRAM50TA3 PO (15:58)
[2021-12-01] MEDS ORDERED: HYDR-3817 PO (15:58)
[2021-12-01] MEDS ORDERED: GLUC-200 PO (15:59)
[2021-12-01] MEDS: RIVAROXABAN 20 MG TABLET (XARELTO) PO SCH (16:58)
[2021-12-01 19:29] VITALS: BP 95/50
[2021-12-01 20:33] VITALS: BP 115/66
[2021-12-01] MEDS: DONEPEZIL 10 MG (ARICEPT) TAB PO SCH (20:45)
--- NOTE | 2021-12-02 05:44 | PM&R Progress Note ---
Subjective HPI/CC On Admission Date Seen by Provider: Dec 02, 2021 Time Seen by Provider: 11:00 Subjective/Events-last exam 12/02/21: Pt is doing about the same Bowels moved yesterday No falls Very impulsive 12/01/21: Patient remains impulsive Poor immediate recall No pain reported O2 maintained 11/30/21: Patient doing pretty well Blood sugars reviewed Patient has a visitor today No pain is reported COPD stable 11/29/2021: Patient doing well Blood sugars elevated so added long-acting twice daily Eating and drinking well Not as impulsive Nebulizers twice daily 11/28/2021: Pt doing well Bowels moved yesterday Increased sugars so I will start the Novolog 8 units before meals since she had been Hypoglycemic IS ordered 11/27/21: Pt is doing about the same Very forgetful, very impulsive Holding insulin due to hypoglycemia Chair and bed alarm maintained Review of Systems General: Fatigue, Malaise Neurological: Confusion Objective Exam Vital Signs Vital Signs Date Time Temp Pulse Resp B/P (MAP) Pulse Ox O2 Delivery O2 Flow Rate FiO2 12/02/21 20:44 97 Nasal Cannula 3.00 12/02/21 19:57 36.6 80 20 116/64 (81) Capillary Refill : General Appearance: No Apparent Distress, WD/WN, Chronically ill, Obese HEENT: PERRL/EOMI, Normal ENT Inspection, Pharynx Normal Neck: Full Range of Motion, Normal Inspection, Non Tender, Supple, Carotid Bruit Respiratory: Chest Non Tender, Lungs Clear, No Accessory Muscle Use, No Respiratory Distress, Decreased Breath Sounds Cardiovascular: Regular Rate, Rhythm, No Edema, No Gallop, No JVD, No Murmur, Normal Peripheral Pulses Gastrointestinal: Normal Bowel Sounds, No Organomegaly, No Pulsatile Mass, Non Tender, Soft Back: Normal Inspection, No CVA Tenderness, No Vertebral Tenderness Extremity: Normal Capillary Refill, Normal Inspection, Normal Range of Motion, Non Tender, No Calf Tenderness, No Pedal Edema Neurologic/Psychiatric: Alert, Oriented x3, No Motor/Sensory Deficits, Normal Mood/Affect, Depressed Affect Skin: Normal Color, Warm/Dry Lymphatic: No Adenopathy Results/Procedures Lab Patient resulted labs reviewed. FIM Transfers Therapy Code Descriptions/Definitions Functional [place] Measure: 0=Not Assessed/NA 4=Minimal Assistance 1=Total Assistance 5=Supervision or Setup 2=Maximal Assistance 6=Modified [place] 3=Moderate Assistance 7=Complete IndependenceSCALE: Activities may be completed with or without assistive devices. 7-Coenhoayfm-hozopqu completes the activity by him/herself with no assistance from a helper. 5-Set-up or Clean-up Assistance-helper sets up or cleans up; patient completes activity. [place] assists only prior to or following the activity. 4-Supervision or Touching Assistance-helper provides verbal cues and/or touching/steadying and/or contact guard assistance as patient completes activity. Assistance may be provided throughout the activity or intermittently. 3-Partial/Moderate Assistance-helper does LESS THAN HALF the effort. [place] lifts, holds or supports trunk or limbs, but provides less than half the effort. 2-Substantial/Maximal Assistance-helper does MORE THAN HALF the effort. [place] lifts or holds trunk or limbs and provides more than half the effort. 7-Hhakxrigx-qbkylr does ALL the effort. Patient does none of the effort to complete the activity. Or, the assistance of 2 or more helpers is required for the patient to complete the activity. If activity was not attempted, code reason: 7-Patient Refused. 9-Not Applicable-not attempted and the patient did not perform the activity before the current illness, exacerbation or injury. 10-Not Attempted due to Environmental Limitations-(lack of equipment, weather restraints, etc.). 88-Not Attempted due to Medical Conditions or Safety Concerns. Roll Left to Right (QC): 6 Sit to Lying (QC): 6 Sit to Stand (QC): 5 Chair/Alw-eh-Ewdgj Xfer(QC): 4 Car Transfer (QC): 4 Gait Training Does the Patient Walk?: Yes Distance: 100', 200', 300' Walk 10 feet (QC): 5 Walk 50 ft with 2 Turns(QC): 5 Walk 150 ft (QC): 5 Walking 10ft/uneven surface-QC: 4 Gait Persons Needed: 1 Gait Assistive Device: FWW Wheelchair Training Does the Pt Use a Wheelchair?: No Wheel 50 ft with 2 turns (QC): 3 Wheel 150 ft (QC): 3 Type of Wheelchair: Manual Stair Training #of Steps: 1 1 Step (curb) (QC): 4 4 Steps (QC): 88 12 Steps (QC): 88 Balance Picking up an Object (QC): 4 (CGA with regrind mill operator) ADL-Treatment Eating (QC): 5 Oral Hygiene (QC): 7 Shower/Bathe Self (QC): 7 Upper Body Dressing (QC): 5 Lower Body Dressing (QC): 4 On/Off Footwear (QC): 4 Toileting Hygiene (QC): 4 Toilet Transfer (QC): 4 Assessment/Plan Assessment and Plan Assess & Plan/Chief Complaint Assessment: COPD myopathy Obesity BETTE on CPAP O2 dependence Dementia HTN HLP DM insulin dependence Plan: SSI A PT OT per protocol Pain management Fall risk 11/27/21: Hold insulin Monitor pain 11/28: Monitor closely Add back in insulin 11/29/2021: Added long-acting insulin Supportive care 11/30/21: Supportive care Monitor oxygen level Monitor sugar 12/01/21: Monitor sugar Monitor impulsiveness 12/02: AL tomorrow (1) Myopathy ALONDRA LFORES DO Dec 02, 2021 05:44
[2021-12-02] MEDS: inSUlin ASPART (NovoLOG) 1 UNIT/0.01 ML (CHARGE PER UNIT) SC SCH ×7 (06:45→20:56)
[2021-12-02] MEDS: LEVOTHYROXINE 150 MCG (LEVOTHROID) TAB PO SCH (07:05)
[2021-12-02] MEDS: RT--FLUTICASONE/SALMETEROL 232-14 (AIRDUO RespiCLICK) IH SCH ×2 (07:27→20:44)
[2021-12-02] MEDS: UMECLIDINIUM BROMIDE (INCRUSE ELLIPTA) 7'S IH SCH (07:28)
[2021-12-02 07:44] VITALS: BP 129/84
--- NOTE | 2021-12-02 08:40 | Occupational Ther Daily Note ---
OT Current Status-Daily Note Subjective Pt alert, sitting in recliner. Pt agrees to therapy. No c/o pain. Pt is oriented x3 though does have memory issues that are safety concerns. Mental Status/Objective Patient Orientation: Person, Place, Time Attachments: Oxygen (3L) ADL-Treatment Pt agrees to shower. Independent with eating. Independent with oral care standing at sink using counter to stabilize if needed. Independent with toileting and toilet transfer using FWW. Pt requires set up for shower. Supervision during shower due to forgetting which body parts has or has not been washed. Pt anxious during shower due to not being hers at home since it is not routine for her. Pt used FWW to gather clothing from closet and transport to where she would like to dress then pt able to dress upper and lower body. Pt able to doff socks by self, dons R sock without AE and uses sock aide to don L sock. Therapy Code Descriptions/Definitions Functional [place] Measure: 0=Not Assessed/NA 4=Minimal Assistance 1=Total Assistance 5=Supervision or Setup 2=Maximal Assistance 6=Modified [place] 3=Moderate Assistance 7=Complete IndependenceSCALE: Activities may be completed with or without assistive devices. 0-Svpfbicnpl-rwuyweg completes the activity by him/herself with no assistance from a helper. 5-Set-up or Clean-up Assistance-helper sets up or cleans up; patient completes activity. Mar[place] assists only prior to or following the activity. 4-Supervision or Touching Assistance-helper provides verbal cues and/or touching/steadying and/or contact guard assistance as patient completes activity. Assistance may be provided throughout the activity or intermittently. 3-Partial/Moderate Assistance-helper does LESS THAN HALF the effort. Marcy lifts, holds or supports trunk or limbs, but provides less than half the effort. 2-Substantial/Maximal Assistance-helper does MORE THAN HALF the effort. Mar[place] lifts or holds trunk or limbs and provides more than half the effort. 4-Bmnqdmbuz-trsqxi does ALL the effort. Patient does none of the effort to complete the activity. Or, the assistance of 2 or more helpers is required for the patient to complete the activity. If activity was not attempted, code reason: 7-Patient Refused. 9-Not Applicable-not attempted and the patient did not perform the activity before the current illness, exacerbation or injury. 10-Not Attempted due to Environmental Limitations-(lack of equipment, weather restraints, etc.). 88-Not Attempted due to Medical Conditions or Safety Concerns. Eating (QC): 6 Oral Hygiene (QC): 6 Shower/Bathe Self (QC): 4 Upper Body Dressing (QC): 6 Lower Body Dressing (QC): 6 On/Off Footwear: 4 (Cues to use sock aide ) Toileting Hygiene (QC): 6 Toilet Transfer (QC): 6 Safety concerns with all ADL and functional tasks due to cognition. Other Treatment Pt completed arm bike to increase strength and activity tolerance for daily functional tasks, 10 min at 20 gaona resistance. After session, pt sitting in recliner with call light/phone in reach. Safety measures in place. All needs met. OT Short Term Goals Short Term Goals Time Frame: Dec 19, 2021 Lower body dressin Putting on/taking off footwear: 4 OT Permastone Applicator Goals Permastone Applicator Goals Time Frame: Dec 19, 2021 Eating (QC): 6 (met) Oral Hygiene (QC): 6 (met) Toileting Hygiene (QC): 6 (met) Shower/Bathe Self (QC): 6 (met) Upper Body Dressing (QC): 6 (met) Lower Body Dressing (QC): 6 (met) On/Off Footwear (QC): 6 (not met) Additional Goals: 1-Demonstrate ADL Tasks, 2-Verbalize Understanding, 3- ImproveStrength/Jerrod 1=Demonstrate adherence to instructed precautions during ADL tasks. 2=Patient will verbalize/demonstrate understanding of assistive devices/modifications for ADL. 3=Patient will improve strength/tolerance for activity to enable patient to perform ADL's. OT Education/Plan Problem List/Assessment Assessment: Decreased Activ Tolerance, Decreased Safety Aware, Impaired Self- Care Skills Discharge Recommendations Plan/Recommendations: Continue POC Treatment Plan/Plan of Care Patient would benefit from OT for education, treatment and training to promote independence in ADL's, mobility, safety and/or upper extremity function for ADL's. Plan of Care: ADL Retraining, Cognitive Retraining, Functional Mobility, Group Exercise/Act as Ind, UE Funct Exercise/Act Treatment Duration: Dec 19, 2021 Frequency: At least 5 of 7 days/Wk (IRF) Estimated Hrs Per Day: 1.5 hours per day Rehab Potential: Fair Time/GCodes Start Time: 07:15 Stop Time: 08:30 Total Time Billed (hr/min): 75 Billed Treatment Time 1 visit-ADL 4 (65 min) EX 1 (10 min) JESI GRACE Dec 02, 2021 08:40
[2021-12-02] MEDS: SPIRONOLACTONE 25 MG (ALDACTONE) TAB PO SCH (08:58)
[2021-12-02] MEDS: metFORMIN XR 500 MG (GLUCOPHAGE XR) TAB PO SCH ×2 (08:58→17:22)
[2021-12-02] MEDS: DOXYCYCLINE 100 MG (VIBRAMYCIN) TABLET PO SCH ×2 (08:58→20:56)
[2021-12-02] MEDS: DULoxetine 30 MG (CYMBALTA) CAP PO SCH ×2 (08:58→20:56)
[2021-12-02] MEDS: MEMANTINE 5 MG (NAMENDA) TABLET PO SCH (08:59)
[2021-12-02] MEDS: FOLIC ACID 1 MG TAB PO SCH (08:59)
[2021-12-02] MEDS: NICOTINE 21 MG (NICODERM) PATCH TD SCH (08:59)
[2021-12-02] MEDS: FUROSEMIDE 20 MG (LASIX) TAB PO SCH (08:59)
[2021-12-02] MEDS: predniSONE 10 MG TAB PO SCH (08:59)
[2021-12-02] MEDS: lisINopril 20 MG (PRINIVIL) TABLET PO SCH (08:59)
[2021-12-02] MEDS: FLUTICASONE NASAL SPRAY (FLONASE) 16 GM BTL NS SCH (09:02)
[2021-12-02] MEDS: SENNA W/DOCUSATE (SENOKOT S) TABLET PO SCH ×2 (09:02→19:35)
[2021-12-02] MEDS: DOCUSATE SODIUM 100 MG (COLACE) CAP PO SCH ×2 (09:02→19:35)
[2021-12-02] MEDS: MICONAZOLE 2% POWDER (DESENEX AF) 90 GM TOP SCH ×2 (09:02→20:57)
[2021-12-02] MEDS: polyethylene glycoL POWDER 17 GM (MIRALAX) PACK PO SCH ×2 (09:02→19:35)
[2021-12-02] MEDS: NICOTINE PATCH REMOVAL TP SCH (09:06)
--- NOTE | 2021-12-02 09:35 | Speech Therapy Daily Note ---
Speech Daily Progress Note Subjective Date Seen by Provider: Dec 02, 2021 Time Seen by Provider: 09:30 The patient was seated upright in her recliner, awake and alert upon entrance to her room by the clinician. The patient greeted the clinician appropriately and was agreeable to participation in the cognitive linguistic treatment session. Objective - Orientation: The patient was oriented to month and year. The patient stated the day was "Wednesday" and her location was "[place]." The patient's attention was brought to the in-room white board and orientation information and location were reviewed. -Functional Recall: The patient was unable to recall if she ate breakfast (which she did) and requested additional items (which the RN ordered for the patient). Additionally, the patient stated she "didn't really do anything with OT," however, agreed to the tasks completed with OT once recalled and discussed by the clinician. The patient was able to recall one of three items following a five minute delay and three of three items when category cues were provided. Expression of Ideas/Wants: Exhibits (3) Understanding Verbal Content: Sometimes Understands(2) Brief Interview-Mental Status: Yes Repetition of Three Words: Three (3) Temporal Orientation: Year: Correct. Temporal Orientation: Month: Accurate within 5 days(2) Temporal Orientation: Day: Incorrect or No Answer(0) Recall : Wear to say "Sock": Yes, no cue required (2) Recall : Color: Yes, after cueing (1) Recall : Bed: Yes,after cueing (1) Memory/Recall Ability: Current season, That he or she is in a hsp/hsp unit Assessment Assessment Current Status: Fair Progress Treatment Plan Discontinue ST Speech Short Term Goals Short Term Goals Short Term Goals 1. The patient will demonstrate 80% accuracy with memory exercises provided mild clinician verbal and visual cueing. Time Frame-STG: One Week. Speech Prison Goals Railroad Mechanic Goals 1. The patient will display improved cognitive linguistic skills for safe discharge to the least restrictive environment. Time Frame: Two Weeks. Speech-Plan Treatment Plan Speech Therapy Treatment Plan: Discontinue ST Treatment Duration: Dec 11, 2021 Frequency: Modified Program (IRF) Estimated Hrs Per Day: .5 hour per day Rehab Potential: Fair Safety Risks/Education Teaching Recipient: Patient Teaching Methods: Discussion Response to Teaching: Reinforcement Needed Education Topics Provided: Orientation Strategies, External Memory Strategies, Plan of Care Time Speech Therapy Time In: 09:30 Speech Therapy Time Out: 10:00 Total Billed Time: 30 Billed Treatment Time 1, SAHRA ROWELL Dec 02, 2021 09:34
--- NOTE | 2021-12-02 10:08 | Therapy Team Discharge Summary ---
Therapy Discharge Summary Discharge Recommendations Date of Discharge Physical Therapy Roll Left to Right (QC): 6 Sit to Lying (QC): 6 Lying to Sitting/Side of Bed(Q: 6 Sit to Stand (QC): 5 Chair/Hyr-ci-Atbzr Xfer(QC): 4 Toilet Transfer (QC): 5 Car Transfer (QC): 4 Does the Patient Walk: Yes Mode of Locomotion: Walk Anticipated Mode of Locomotion: Walk Walk 10 feet (QC): 5 Walk 50 ft with 2 Turns(QC): 5 Walk 150 ft (QC): 5 Walking 10ft on uneven surface: 4 Distance: 100', 20'x3 Gait Assistive Device: FWW Does the Pt Use a Wheelchair: No Wheel 50 ft with 2 turns (QC): 3 Wheel 150 ft (QC): 3 Type of Wheelchair: Manual #of Steps: 1 1 Step (curb) (QC): 4 4 Steps (QC): 88 12 Steps (QC): 88 Walking Assistive Device: Walker Balance Sitting Static: Normal Balance Sitting Dynamic: Normal Balance-Standing Static: Good Picking up an Object (QC): 4 (CGA with color paste mixer) Occupational Therapy Decreased Activ Tolerance, Decreased Safety Aware, Impaired Self-Care Skills Eating (QC): 6 Oral Hygiene (QC): 6 Shower/Bathe Self (QC): 4 Upper Body Dressing (QC): 6 Lower Body Dressing (QC): 6 On/Off Footwear (QC): 4 (Cues to use sock aide ) Toileting Hygiene (QC): 6 Speech-Language Pathology Expression of Ideas/Wants: Exhibits (3) Understanding Verbal Content: Sometimes Understands(2) Brief Interview-Mental Status: Yes Repetition of Three Words: Three (3) Temporal Orientation: Year: Correct. Temporal Orientation: Month: Accurate within 5 days(2) Temporal Orientation: Day: Incorrect or No Answer(0) Recall : Wear to say "Sock": Yes, no cue required (2) Recall : Color: Yes, after cueing (1) Recall : Bed: Yes,after cueing (1) Memory/Recall Ability: Current season, That he or she is in a hsp/hsp unit The patient's functional memory fluctuated throughout her time on the rehabilitation unit and skilled treatment. In a familiar environment, the clinician does suspect slight improvement. At this time, the clinician believes the most appropriate discharge location would be assisted living due to the patient's memory deficits. PT Nursing Home Goals [facility] Goals PT [facility] Goals Time Frame: Dec 18, 2021 Roll Left to Right (QC): 6 Sit to Lying (QC): 6 Lying-Sitting on Side/Bed(QC): 6 Sit to Stand (QC): 6 Chair/Awl-el-Pctqs Xfer(QC): 6 Car Transfer (QC): 6 Does the Patient Walk: Yes Walk 10 feet (QC): 6 Walk 10ft-Uneven Surface(QC): 6 Walk 50ft with 2 Turns (QC): 6 Walk 150 ft (QC): 6 Wheel 50 feet with 2 turns (QC: 9 1 Step (curb) (QC): 4 (SBA) 4 Steps (QC): 4 (SBA) 12 Steps (QC): 88 Picking up an Object (QC): 6 OT [facility] Goals Nursing Home Goals Time Frame: Dec 19, 2021 Eating (QC): 6 (met) Oral Hygiene (QC): 6 (met) Shower/Bathe Self (QC): 6 (met) Upper Body Dressing (QC): 6 (met) Lower Body Dressing (QC): 6 (met) On/Off Footwear (QC): 6 (not met) Toileting Hygiene (QC): 6 (met) Toilet/Commode Transfer (QC): 6 Additional Goals: 1-Demonstrate ADL Tasks, 2-Verbalize Understanding, 3- ImproveStrength/Jerrod 1=Demonstrate adherence to instructed precautions during ADL tasks. 2=Patient will verbalize/demonstrate understanding of assistive devices/modifications for ADL. 3=Patient will improve strength/tolerance for activity to enable patient to perform ADL's. Speech Nursing Home Goals [facility] Goals 1. The patient will display improved cognitive linguistic skills for safe discharge to the least restrictive environment. Time Frame: Two Weeks. SAHRA PEREA Dec 02, 2021 10:08
--- NOTE | 2021-12-02 12:40 | Physical Therapy Daily Note ---
PT Daily Note-Current Subjective Pt sitting in recliner upon arrival. Pt agrees to PT for QC scoring for anticipated d/c tomorrow. Pain Location: No Pain Reported Mental Status Patient Orientation: Person, Place, Situation Attachments: Oxygen Transfers SCALE: Activities may be completed with or without assistive devices. 2-Gzcetsbexe-gvwlhlq completes the activity by him/herself with no assistance from a helper. 5-Set-up or Clean-up Assistance-helper sets up or cleans up; patient completes activity. Bracey assists only prior to or following the activity. 4-Supervision or Touching Assistance-helper provides verbal cues and/or touching/steadying and/or contact guard assistance as patient completes activity. Assistance may be provided throughout the activity or intermittently. 3-Partial/Moderate Assistance-helper does LESS THAN HALF the effort. [place] lifts, holds or supports trunk or limbs, but provides less than half the effort. 2-Substantial/Maximal Assistance-helper does MORE THAN HALF the effort. [place] lifts or holds trunk or limbs and provides more than half the effort. 0-Hlnfyfsuj-ozofap does ALL the effort. Patient does none of the effort to complete the activity. Or, the assistance of 2 or more helpers is required for the patient to complete the activity. If activity was not attempted, code reason: 7-Patient Refused. 9-Not Applicable-not attempted and the patient did not perform the activity before the current illness, exacerbation or injury. 10-Not Attempted due to Environmental Limitations-(lack of equipment, weather restraints, etc.). 88-Not Attempted due to Medical Conditions or Safety Concerns. Roll Left & Right (QC): 6 Sit to Lying (QC): 6 Lying to Sitting/Side of Bed(Q: 6 Sit to Stand (QC): 6 Chair/Sol-ms-Riqdz Xfer(QC): 6 Toilet Transfer (QC): 6 Car Transfer (QC): 6 Weight Bearing Full Weight Bearing Full Weight Bearing Gait Training Does the Patient Walk?: Yes Distance: 75', 250' x2 Walk 10 feet (QC): 6 Walk 50 ft with 2 Turns(QC): 6 Walk 150 ft (QC): 6 Walking 10ft/uneven surface-QC: 6 Gait Assistive Device: FWW VC at times to manage O2 line Wheelchair Training Does the Pt Use a Wheelchair?: No Stair Training Stair Training: Handrails/: 2 handrails #of Steps: 8 1 Step (curb) (QC): 6 4 Steps (QC): 6 12 Steps (QC): 7 Stairs: Pattern: Step to Pt reports fatigue after 8 steps and rests. Balance Picking up an Object (QC): 6 Exercises Seated Therapy Exercises: Ankle pumps, Long arc quads, Hip flexion, Hip abd/add, Glut set Seated Reps: 15 Standing: Floor clock, Hamstring curls, Heel/toe raises, 3 way Ex=Flex, Abd, Ext, Marching, Weight shifts Standing Reps: 15 Treatments Pt completes QC scoring items listed above as well as ambulates extended distance in hallway. Pt is able to complete Standing Ex at //bars and Seated Ex in chair. Pt returns to room at end of tx w/all needs met, call light in hand. Assessment Current Status: Good Progress Pt has made good progress with mobility and activity tolerance. Pt still needs occasional VC for safety in managing O2 line as pt sometimes runs over it or gets it wound in FWW wheel. PT Short Term Goals Short Term Goals Time Frame: Dec 04, 2021 Roll Left & Right: 6 Sit to lyin Lying to sitting on side of be: 6 Sit to stand: 4 (SBA) Chair/dxw-ge-wlwvb transfer: 4 (SBA) Walk 10 feet: 4 (SBA) Walk 50 feet with two turns: 4 (SBA) Walk 150 feet: 4 (SBA) PT Jail Goals Jail Goals PT Story Editor Goals Time Frame: Dec 18, 2021 Roll Left & Right (QC): 6 Sit to Lying (QC): 6 Lying-Sitting on Side/Bed(QC): 6 Sit to Stand (QC): 6 Chair/Sav-ky-Mohfp Xfer(QC): 6 Toilet Transfer (QC): 6 Car Transfer (QC): 6 Does the Patient Walk: Yes Walk 10 feet (QC): 6 Walk 50ft with 2 Turns (QC): 6 Walk 150 ft (QC): 6 Walking 10ft on Uneven Surface: 6 1 Step (curb) (QC): 4 (SBA) 4 Steps (QC): 4 (SBA) 12 Steps (QC): 88 Picking up an Object (QC): 6 Wheel 50 feet with 2 turns (QC: 9 Wheel 150 feet: 9 PT Plan Problem List Problem List: Activity Tolerance, Safety Treatment/Plan Treatment Plan: Continue Plan of Care Treatment Plan: Bed Mobility, Education, Functional Activity Jerrod, Functional Strength, Group Therapy, Gait, Safety, Therapeutic Exercise, Transfers Treatment Duration: Dec 18, 2021 Frequency: At least 5 of 7 days/Wk (IRF) Estimated Hrs Per Day: 1.5 hours per day Patient and/or Family Agrees t: Yes Safety Risks/Education Patient Education: Steps, Safety Issues Teaching Recipient: Patient Teaching Methods: Discussion Response to Teaching: Verbalize Understanding Time/GCodes Time In: 1100 Time Out: 1215 Total Billed Treatment Time: 75 Total Billed Treatment 1, GT x2 (30m), EX x2 (30m) & FA (15m) STORM HASTINGS SYSTEM DESIGNER Dec 02, 2021 12:40
[2021-12-02] MEDS: RIVAROXABAN 20 MG TABLET (XARELTO) PO SCH (17:22)
[2021-12-02 19:57] VITALS: BP 116/64
[2021-12-02] MEDS: DONEPEZIL 10 MG (ARICEPT) TAB PO SCH (20:56)
[2021-12-03] MEDS ORDERED: SPIR25TA PO (05:55)
[2021-12-03] MEDS ORDERED: DULO30CA3 PO (05:55)
[2021-12-03] MEDS ORDERED: MEMA5TAB PO (05:55)
[2021-12-03] MEDS ORDERED: CHOL200074 PO (05:55)
[2021-12-03] MEDS ORDERED: RT-ALBUINH IH (05:55)
[2021-12-03] MEDS ORDERED: NICO1PAT34 TD (05:55)
[2021-12-03] MEDS ORDERED: SENN1TAB76 PO (05:55)
[2021-12-03] MEDS ORDERED: METF750T45 PO (05:55)
[2021-12-03] MEDS ORDERED: ATOR20TA66 PO (05:55)
[2021-12-03] MEDS ORDERED: LEVO150T6 PO (05:55)
[2021-12-03] MEDS ORDERED: FURO20TA4 PO (05:55)
[2021-12-03] MEDS ORDERED: BUDE10.2 IH (05:55)
[2021-12-03] MEDS ORDERED: MICO90PO TOP (05:55)
[2021-12-03] MEDS ORDERED: CYAN500T8 PO (05:55)
[2021-12-03] MEDS ORDERED: PEN-53 MC (05:55)
[2021-12-03] MEDS ORDERED: DONE10TA41 PO (05:55)
[2021-12-03] MEDS ORDERED: CITA20TA9 PO (05:55)
[2021-12-03] MEDS ORDERED: RIVA20TA PO (05:55)
[2021-12-03] MEDS ORDERED: INSU100I29 SQ (05:55)
[2021-12-03] MEDS ORDERED: UMEC62.5 IH (05:55)
[2021-12-03] MEDS ORDERED: FOLI1TAB33 PO (05:55)
[2021-12-03] MEDS ORDERED: LISI20TA26 PO (05:55)
--- NOTE | 2021-12-03 05:56 | D/C HH Face to Face Order ---
D/C HH Face to Face Orders Reconcile Patient Problems Problems Reviewed?: Yes Instructions for Patient HH Patient Instructions/FollowUp: PCP as scheduled Physician to follow Patient: Mcdaniel Discharge Diet for Home: ADA Diet Patient Problems: COPD DM Dementia Patient Data-Allergies,Ht & Wt Patient Allergies: Coded Allergies: Penicillins (Verified Allergy, Unknown, Rash, 11/26/21) Home Health Need/Face to Face Date of Face to Face: Dec 03, 2021 Clinical Findings: Generalized weakness and fatigue, Instability, Muscle weakness, Shortness of breath I have seen Pt zhov-ys-xxyq: Yes Discharged To: Home Diagnosis/Conditions: COPD Patient is Homebound due to: CognItive deficits, Shortness of breath/distress Homebound Status Due to the above stated illness, injury or surgical procedure (medical condition or diagnosis) and associated clinical findings, the patient is homebound because of his/her inability to leave home except with aid of a supportive device and/or person AND leaving the home requires a considerable and taxing effort or is medically contraindicated. Pt req the following assistanc: Walker Home Health Nursing Orders Home Health Services Order: Combiner-Evaluate & Treat, Physical Therapy-Evaluate & Treat Certify Stmt I certify that this patient is under my care and that I, a nurse practitioner or a physician; a lens assistant working with me, had a face to face encounter that - meets the physician face to face encounter requirements with this patient as dated. ALONDRA FLORES DO Dec 03, 2021 05:56
--- NOTE | 2021-12-03 05:56 | Discharge Summary ---
Diagnosis/Chief Complaint Date of Admission Nov 26, 2021 at 16:15 Date of Discharge Discharge Date: Dec 03, 2021 Discharge Diagnosis Assessment: COPD myopathy Obesity BETTE on CPAP O2 dependence Dementia HTN HLP DM insulin dependence Plan: SSI A PT OT per protocol Pain management Fall risk 11/27/21: Hold insulin Monitor pain 11/28: Monitor closely Add back in insulin 11/29/2021: Added long-acting insulin Supportive care 11/30/21: Supportive care Monitor oxygen level Monitor sugar 12/01/21: Monitor sugar Monitor impulsiveness 12/02: AL tomorrow (1) Myopathy Discharge Summary Discharge Physical Examination Allergies: Coded Allergies: Penicillins (Verified Allergy, Unknown, Rash, 11/26/21) Vitals & I&Os Vital Signs Date Time Temp Pulse Resp B/P (MAP) Pulse Ox O2 Delivery O2 Flow Rate FiO2 12/03/21 14:38 36.2 82 82 130/76 94 Nasal Cannula 3.00 General Appearance: Alert, Cooperative, Other (poor recall) Respiratory: Clear to Auscultation Cardiovascular: Regular Rate Neuro: Normal Gait, Normal Speech, Strength at 5/5 X4 Ext Hospital Course Was the Problem List Reviewed?: Yes Hospital course: patient had a standard course while in ARU after COPD myopathy s/p lengthy course at OSH. Steroids were maintained for standard 10 days post DC and then completed prior to DC. Impulsiveness placed her at risk for falls so AL was arranged and she was DC in improved condition after successfully completing PT OT. Labs (last 24 hrs) Laboratory Tests 11/26/21 17:55: Glucometer 230H 11/26/21 20:40: Glucometer 258H 11/27/21 05:00: White Blood Count 9.8, Red Blood Count 4.78, Hemoglobin 15.0, Hematocrit 49, Mean Corpuscular Volume 103H, Mean Corpuscular Hemoglobin 31, Mean Corpuscular Hemoglobin Concent 31L, Red Cell Distribution Width 14.5, Platelet Count 178, Mean Platelet Volume 10.9, Immature Granulocyte % (Auto) 1, Neutrophils (%) (Auto) 69, Lymphocytes (%) (Auto) 22, Monocytes (%) (Auto) 8, Eosinophils (%) (Auto) 1, Basophils (%) (Auto) 0, Neutrophils # (Auto) 6.7, Lymphocytes # (Auto) 2.1, Monocytes # (Auto) 0.8, Eosinophils # (Auto) 0.1, Basophils # (Auto) 0.0, Immature Granulocyte # (Auto) 0.1, Sodium Level 137, Potassium Level 4.2, Chloride Level 91L, Carbon Dioxide Level 37H, Anion Gap 9, Blood Urea Nitrogen 28H, Creatinine 0.81, Estimat Glomerular Filtration Rate 81, BUN/Creatinine Ratio 35, Glucose Level 65L, Calcium Level 9.0, Corrected Calcium 9.6, Total Bilirubin 0.6, Aspartate Amino Transf (AST/SGOT) 15, Alanine Aminotransferase (ALT/SGPT) 27, Alkaline Phosphatase 77, Total Protein 6.0L, Albumin 3.3 11/27/21 10:45: Glucometer 147H 11/27/21 16:58: Glucometer 435*H 11/27/21 19:56: Glucometer 276H 11/28/21 05:44: Glucometer 203H 11/28/21 10:50: Glucometer 210H 11/28/21 16:58: Glucometer 311H 11/28/21 20:08: Glucometer 265H 11/29/21 06:36: Glucometer 178H 11/29/21 10:52: Glucometer 162H 11/29/21 15:27: Glucometer 323H 11/29/21 20:00: Glucometer 208H 11/30/21 06:20: Glucometer 160H 11/30/21 11:11: Glucometer 171H 11/30/21 16:44: Glucometer 207H 11/30/21 20:14: Glucometer 227H 12/01/21 05:46: Glucometer 148H 12/01/21 07:26: White Blood Count 13.1H, Red Blood Count 4.86, Hemoglobin 15.4, Hematocrit 49, Mean Corpuscular Volume 101H, Mean Corpuscular Hemoglobin 32, Mean Corpuscular Hemoglobin Concent 31L, Red Cell Distribution Width 14.5, Platelet Count 219, Mean Platelet Volume 10.8, Immature Granulocyte % (Auto) 1, Neutrophils (%) (Auto) 71, Lymphocytes (%) (Auto) 19, Monocytes (%) (Auto) 7, Eosinophils (%) (Auto) 2, Basophils (%) (Auto) 0, Neutrophils # (Auto) 9.3H, Lymphocytes # (Auto) 2.5, Monocytes # (Auto) 1.0, Eosinophils # (Auto) 0.2, Basophils # (Auto) 0.0, Immature Granulocyte # (Auto) 0.1, Sodium Level 134L, Potassium Level 4.1, Chloride Level 91L, Carbon Dioxide Level 31, Anion Gap 12, Blood Urea Nitrogen 24H, Creatinine 0.88, Estimat Glomerular Filtration Rate 73, BUN/Creatinine Ra alan 27, Glucose Level 185H, Calcium Level 9.3, Corrected Calcium 9.6, Total Bilirubin 0.5, Aspartate Amino Transf (AST/SGOT) 18, Alanine Aminotransferase (ALT/SGPT) 29, Alkaline Phosphatase 77, Total Protein 6.6, Albumin 3.6 12/01/21 10:52: Glucometer 255H 12/01/21 15:16: Glucometer 260H 12/01/21 20:17: Glucometer 129H 12/02/21 05:19: Glucometer 116H 12/02/21 10:45: Glucometer 243H 12/02/21 15:19: Glucometer 193H 12/02/21 20:20: Glucometer 232H 12/03/21 05:28: Glucometer 101 12/03/21 10:51: Glucometer 142H Pending Labs Laboratory Tests 11/26/21 17:55: Glucometer 230 11/26/21 20:40: Glucometer 258 11/27/21 05:00: White Blood Count 9.8, Red Blood Count 4.78, Hemoglobin 15.0, Hematocrit 49, Mean Corpuscular Volume 103, Mean Corpuscular Hemoglobin 31, Mean Corpuscular Hemoglobin Concent 31, Red Cell Distribution Width 14.5, Platelet Count 178, Mean Platelet Volume 10.9, Immature Granulocyte % (Auto) 1, Neutrophils (%) (Auto) 69, Lymphocytes (%) (Auto) 22, Monocytes (%) (Auto) 8, Eosinophils (%) (Auto) 1, Basophils (%) (Auto) 0, Neutrophils # (Auto) 6.7, Lymphocytes # (Auto) 2.1, Monocytes # (Auto) 0.8, Eosinophils # (Auto) 0.1, Basophils # (Auto) 0.0, Immature Granulocyte # (Auto) 0.1, Sodium Level 137, Potassium Level 4.2, Chloride Level 91, Carbon Dioxide Level 37, Anion Gap 9, Blood Urea Nitrogen 28, Creatinine 0.81, Estimat Glomerular Filtration Rate 81, BUN/Creatinine Ratio 35, Glucose Level 65, Calcium Level 9.0, Corrected Calcium 9.6, Total Bilirubin 0.6, Aspartate Amino Transf (AST/SGOT) 15, Alanine Aminotransferase (ALT/SGPT) 27, Alkaline Phosphatase 77, Total Protein 6.0, Albumin 3.3 11/27/21 10:45: Glucometer 147 11/27/21 16:58: Glucometer 435 11/27/21 19:56: Glucometer 276 11/28/21 05:44: Glucometer 203 11/28/21 10:50: Glucometer 210 11/28/21 16:58: Glucometer 311 11/28/21 20:08: Glucometer 265 11/29/21 06:36: Glucometer 178 11/29/21 10:52: Glucometer 162 11/29/21 15:27: Glucometer 323 11/29/21 20:00: Glucometer 208 11/30/21 06:20: Glucometer 160 11/30/21 11:11: Glucometer 171 11/30/21 16:44: Glucometer 207 11/30/21 20:14: Glucometer 227 12/01/21 05:46: Glucometer 148 12/01/21 07:26: White Blood Count 13.1, Red Blood Count 4.86, Hemoglobin 15.4, Hematocrit 49, Mean Corpuscular Volume 101, Mean Corpuscular Hemoglobin 32, Mean Corpuscular Hemoglobin Concent 31, Red Cell Distribution Width 14.5, Platelet Count 219, Mean Platelet Volume 10.8, Immature Granulocyte % (Auto) 1, Neutrophils (%) (Auto) 71, Lymphocytes (%) (Auto) 19, Monocytes (%) (Auto) 7, Eosinophils (%) (Auto) 2, Basophils (%) (Auto) 0, Neutrophils # (Auto) 9.3, Lymphocytes # (Auto) 2.5, Monocytes # (Auto) 1.0, Eosinophils # (Auto) 0.2, Basophils # (Auto) 0.0, Immature Granulocyte # (Auto) 0.1, Sodium Level 134, Potassium Level 4.1, Chloride Level 91, Carbon Dioxide Level 31, Anion Gap 12, Blood Urea Nitrogen 24, Creatinine 0.88, Estimat Glomerular Filtration Rate 73, BUN/Creatinine Ratio 27, Glucose Level 185, Calcium Level 9.3, Corrected Calcium 9.6, Total Bilirubin 0.5, Aspartate Amino Transf (AST/SGOT) 18, Alanine Aminotransferase (ALT/SGPT) 29, Alkaline Phosphatase 77, Total Protein 6.6, Albumin 3.6 12/01/21 10:52: Glucometer 255 12/01/21 15:16: Glucometer 260 12/01/21 20:17: Glucometer 129 12/02/21 05:19: Glucometer 116 12/02/21 10:45: Glucometer 243 12/02/21 15:19: Glucometer 193 12/02/21 20:20: Glucometer 232 12/03/21 05:28: Glucometer 101 12/03/21 10:51: Glucometer 142 Discharge Home Medications: Active Scripts Active Advocate Pen Needle (Pen Needle, Diabetic) 33 Gauge X 5/32" Dis.needle Each MC BID Levemir Flextouch (Insulin Detemir) 100 Unit/Ml (3 Ml) Insuln.pen 15 Unit SQ BID Lotrimin AF (Miconazole Nitrate) 2 % Powder 0 Gm TOP BID Stool Softener-Laxative Tablet (Sennosides/Docusate Sodium) 8.6 Mg-50 Mg Tablet 1 Ea PO BID PRN Cymbalta (Duloxetine HCl) 30 Mg Capsule.dr 30 Mg PO BID Nicoderm Cq (Nicotine) 21 Mg/24 Hour Patch.td24 21 Mg TD DAILY Incruse Ellipta (Umeclidinium Alma) 62.5 Mcg/Actuation Blst.w.dev 1 Puff IH DAILY Vitamin D3 (Cholecalciferol (Vitamin D3)) 50 Mcg (2000 Unit) Capsule 50 Mcg PO DAILY Vitamin B-12 (Cyanocobalamin (Vitamin B-12)) 500 Mcg Tablet 500 Mcg PO DAILY Aldactone (Spironolactone) 25 Mg Tablet 25 Mg PO DAILY Xarelto (Rivaroxaban) 20 Mg Tablet 20 Mg PO 1800 W/SUPPER Metformin HCl ER (Metformin HCl) 750 Mg Tab.er.24h 750 Mg PO BID WITH MEALS Namenda (Memantine HCl) 5 Mg Tablet 20 Mg PO DAILY TAKES 4 (5MG) TABS Lisinopril 20 Mg Tablet 20 Mg PO DAILY Levothyroxine Sodium 150 Mcg Tablet 150 Mcg PO DAILY Furosemide 20 Mg Tablet 20 Mg PO DAILY Folic Acid 1 Mg Tablet 1 Mg PO 1800 Donepezil HCl 10 Mg Tablet 10 Mg PO HS Citalopram HBr (Citalopram Hydrobromide) 20 Mg Tablet 20 Mg PO DAILY Symbicort 160-4.5 Mcg Inhaler (Budesonide/Formoterol Fumarate) 160 Mcg-4.5 Mcg/Actuation Hfa.aer.ad 2 Puff IH BID Atorvastatin Calcium 20 Mg Tablet 20 Mg PO DAILY Proair Hfa (Albuterol Sulfate) 1 Puff Puff 2 Puff IH Q4H PRN Instructions to patient/family Please see electronic discharge instructions given to patient. Diagnosis/Problems Diagnosis/Problems (1) Myopathy ALONDRA FLORES DO Dec 03, 2021 05:56
[2021-12-03] MEDS: LEVOTHYROXINE 150 MCG (LEVOTHROID) TAB PO SCH (06:59)
[2021-12-03] MEDS: inSUlin ASPART (NovoLOG) 1 UNIT/0.01 ML (CHARGE PER UNIT) SC SCH ×4 (06:59→12:12)
[2021-12-03 07:46] VITALS: BP 130/76
[2021-12-03] MEDS: UMECLIDINIUM BROMIDE (INCRUSE ELLIPTA) 7'S IH SCH (08:00)
[2021-12-03] MEDS: RT--FLUTICASONE/SALMETEROL 232-14 (AIRDUO RespiCLICK) IH SCH (08:00)
[2021-12-03] MEDS: predniSONE 10 MG TAB PO SCH (08:54)
[2021-12-03] MEDS: FOLIC ACID 1 MG TAB PO SCH (08:54)
[2021-12-03] MEDS: SPIRONOLACTONE 25 MG (ALDACTONE) TAB PO SCH (08:54)
[2021-12-03] MEDS: DULoxetine 30 MG (CYMBALTA) CAP PO SCH (08:54)
[2021-12-03] MEDS: metFORMIN XR 500 MG (GLUCOPHAGE XR) TAB PO SCH (08:54)
[2021-12-03] MEDS: FUROSEMIDE 20 MG (LASIX) TAB PO SCH (08:54)
[2021-12-03] MEDS: DOXYCYCLINE 100 MG (VIBRAMYCIN) TABLET PO SCH (08:54)
[2021-12-03] MEDS: SENNA W/DOCUSATE (SENOKOT S) TABLET PO SCH (08:57)
[2021-12-03] MEDS: polyethylene glycoL POWDER 17 GM (MIRALAX) PACK PO SCH (08:57)
[2021-12-03] MEDS: FLUTICASONE NASAL SPRAY (FLONASE) 16 GM BTL NS SCH (08:57)
[2021-12-03] MEDS: NICOTINE PATCH REMOVAL TP SCH (08:57)
[2021-12-03] MEDS: MEMANTINE 5 MG (NAMENDA) TABLET PO SCH (08:58)
[2021-12-03] MEDS: DOCUSATE SODIUM 100 MG (COLACE) CAP PO SCH (08:58)
[2021-12-03] MEDS: NICOTINE 21 MG (NICODERM) PATCH TD SCH (08:58)
[2021-12-03] MEDS: MICONAZOLE 2% POWDER (DESENEX AF) 90 GM TOP SCH (09:00)
[2021-12-03] MEDS: lisINopril 20 MG (PRINIVIL) TABLET PO SCH (09:02)
--- NOTE | 2021-12-03 13:59 | Therapy Team Discharge Summary ---
Therapy Discharge Summary Discharge Recommendations Date of Discharge Physical Therapy Roll Left to Right (QC): 6 Sit to Lying (QC): 6 Lying to Sitting/Side of Bed(Q: 6 Sit to Stand (QC): 6 Chair/Clb-ct-Xplbh Xfer(QC): 6 Toilet Transfer (QC): 5 Car Transfer (QC): 6 Does the Patient Walk: Yes Mode of Locomotion: Walk Anticipated Mode of Locomotion: Walk Walk 10 feet (QC): 6 Walk 50 ft with 2 Turns(QC): 6 Walk 150 ft (QC): 6 Walking 10ft on uneven surface: 6 Distance: 100', 20'x3 Gait Assistive Device: FWW Does the Pt Use a Wheelchair: No Wheel 50 ft with 2 turns (QC): 3 Wheel 150 ft (QC): 3 Type of Wheelchair: Manual #of Steps: 8 1 Step (curb) (QC): 6 4 Steps (QC): 6 12 Steps (QC): 7 Walking Assistive Device: Walker Balance Sitting Static: Normal Balance Sitting Dynamic: Normal Balance-Standing Static: Good Picking up an Object (QC): 6 Occupational Therapy Pt presented to ARU with COPD and debility. Pt was IND with all ADLs at [facility] but received help from cobbler upper for IADLs, 3d/wk for 3hrs each visit. At [facility], pt scored IND with eating, SBA for oral hygiene, showering, UBD, and toileting, Max A with LBD, and Min A with footwear. OT tx focused on BUE strength and endurance and increasing IND in ADLs, functional mobility, and activity tolerance. Pt made functional progress towards goals, meeting all of them except for footwear. OT recommends a sock aid to increase IND in footwear. Pt being discharged to [facility] at [facility], recommendations include HH OT. DC from OT at this time. Decreased Activ Tolerance, Decreased Safety Aware, Impaired Self-Care Skills Eating (QC): 6 Oral Hygiene (QC): 6 Shower/Bathe Self (QC): 4 Upper Body Dressing (QC): 6 Lower Body Dressing (QC): 6 On/Off Footwear (QC): 4 (Cues to use sock aide ) Toileting Hygiene (QC): 6 PT Dough Braker Goals Intermediate Goals PT Dough Braker Goals Time Frame: Dec 18, 2021 Roll Left to Right (QC): 6 Sit to Lying (QC): 6 Lying-Sitting on Side/Bed(QC): 6 Sit to Stand (QC): 6 Chair/Mdz-tn-Dfqbb Xfer(QC): 6 Car Transfer (QC): 6 Does the Patient Walk: Yes Walk 10 feet (QC): 6 Walk 10ft-Uneven Surface(QC): 6 Walk 50ft with 2 Turns (QC): 6 Walk 150 ft (QC): 6 Wheel 50 feet with 2 turns (QC: 9 1 Step (curb) (QC): 4 (SBA) 4 Steps (QC): 4 (SBA) 12 Steps (QC): 88 Picking up an Object (QC): 6 OT Dough Braker Goals Dough Braker Goals Time Frame: Dec 19, 2021 Eating (QC): 6 (met) Oral Hygiene (QC): 6 (met) Shower/Bathe Self (QC): 6 (met) Upper Body Dressing (QC): 6 (met) Lower Body Dressing (QC): 6 (met) On/Off Footwear (QC): 6 (not met) Toileting Hygiene (QC): 6 (met) Toilet/Commode Transfer (QC): 6 Additional Goals: 1-Demonstrate ADL Tasks, 2-Verbalize Understanding, 3- ImproveStrength/Jerrod 1=Demonstrate adherence to instructed precautions during ADL tasks. 2=Patient will verbalize/demonstrate understanding of assistive devices/modifications for ADL. 3=Patient will improve strength/tolerance for activity to enable patient to perform ADL's. Speech Intermediate Goals Intermediate Goals 1. The patient will display improved cognitive linguistic skills for safe discharge to the least restrictive environment. Time Frame: Two Weeks. SALVATORE MORRISSEY OT Dec 03, 2021 13:58
[2021-12-03 14:38] VITALS: BP 130/76
--- NOTE | 2021-12-03 15:23 | Therapy Team Discharge Summary ---
Therapy Discharge Summary Discharge Recommendations Date of Discharge Dec 03, 2021 at 14:35 Physical Therapy Patient came to rehab with COPD, debility. Upon evaluation patient performs rolling and supine <-> sit with independence, sit <-> stand and transfers with CGA, car transfer CGA, ambulate 100' with a rolling walker with CGA (including 50' with at least 2 turns of 90 degrees and 10' over an uneven surface), went up and down 1 step using a rolling walker with CGA, propelled a manual WC 150' with min assist, and picked up an object from the floor using a stripper color with CGA. Patient has been performing bed mobility and transfer training, balance and endurance training, functional strengthening, stair training, gait training, and education. 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 Now, patient performs rolling and supine <-> sit with independence, sit <-> stand and transfers with independence, car transfer independent, ambulates 250' with a rolling walker with independence (including 50' with at least 2 turns of 90 degrees and 10' over an uneven surface), can go up and down 8 steps using 2 handrails with independence, and can picker and packer an object from the floor with independence. Patient is being discharged from this facility today and will be discharged from PT at this time. Roll Left to Right (QC): 6 Sit to Lying (QC): 6 Lying to Sitting/Side of Bed(Q: 6 Sit to Stand (QC): 6 Chair/Waa-mq-Uyswy Xfer(QC): 6 Toilet Transfer (QC): 5 Car Transfer (QC): 6 Does the Patient Walk: Yes Mode of Locomotion: Walk Anticipated Mode of Locomotion: Walk Walk 10 feet (QC): 6 Walk 50 ft with 2 Turns(QC): 6 Walk 150 ft (QC): 6 Walking 10ft on uneven surface: 6 Distance: 100', 20'x3 Gait Assistive Device: FWW Does the Pt Use a Wheelchair: No Wheel 50 ft with 2 turns (QC): 3 Wheel 150 ft (QC): 3 Type of Wheelchair: Manual #of Steps: 8 1 Step (curb) (QC): 6 4 Steps (QC): 6 12 Steps (QC): 7 Walking Assistive Device: Walker Balance Sitting Static: Normal Balance Sitting Dynamic: Normal Balance-Standing Static: Good Picking up an Object (QC): 6 Occupational Therapy Decreased Activ Tolerance, Decreased Safety Aware, Impaired Self-Care Skills Eating (QC): 6 Oral Hygiene (QC): 6 Shower/Bathe Self (QC): 4 Upper Body Dressing (QC): 6 Lower Body Dressing (QC): 6 On/Off Footwear (QC): 4 (Cues to use sock aide ) Toileting Hygiene (QC): 6 PT Intermediate Goals Intermediate Goals PT Pharmacy Consultant Goals Time Frame: Dec 18, 2021 Roll Left to Right (QC): 6 Sit to Lying (QC): 6 Lying-Sitting on Side/Bed(QC): 6 Sit to Stand (QC): 6 Chair/Jbe-tm-Huchx Xfer(QC): 6 Car Transfer (QC): 6 Does the Patient Walk: Yes Walk 10 feet (QC): 6 Walk 10ft-Uneven Surface(QC): 6 Walk 50ft with 2 Turns (QC): 6 Walk 150 ft (QC): 6 Wheel 50 feet with 2 turns (QC: 9 1 Step (curb) (QC): 4 (SBA) 4 Steps (QC): 4 (SBA) 12 Steps (QC): 88 Picking up an Object (QC): 6 OT Pharmacy Consultant Goals Pharmacy Consultant Goals Time Frame: Dec 19, 2021 Eating (QC): 6 (met) Oral Hygiene (QC): 6 (met) Shower/Bathe Self (QC): 6 (met) Upper Body Dressing (QC): 6 (met) Lower Body Dressing (QC): 6 (met) On/Off Footwear (QC): 6 (not met) Toileting Hygiene (QC): 6 (met) Toilet/Commode Transfer (QC): 6 Additional Goals: 1-Demonstrate ADL Tasks, 2-Verbalize Understanding, 3- ImproveStrength/Jerrod 1=Demonstrate adherence to instructed precautions during ADL tasks. 2=Patient will verbalize/demonstrate understanding of assistive devices/modifications for ADL. 3=Patient will improve strength/tolerance for activity to enable patient to perform ADL's. Speech Pharmacy Consultant Goals Intermediate Goals 1. The patient will display improved cognitive linguistic skills for safe discharge to the least restrictive environment. Time Frame: Two Weeks. HEATHER ORLANDO PT Dec 03, 2021 15:23
== END 2021-12-03 14:35 | DRG 92 ==
PROVIDERS: ADMIT Internal Medicine; ATTEND Internal Medicine
DX: G72.89 Other specified myopathies (principal); Z68.42 Body mass index [BMI] 45.0-49.9, adult; J44.9 Chronic obstructive pulmonary disease, unspecified; I10 Essential (primary) hypertension; E78.00 Pure hypercholesterolemia, unspecified; E11.40 Type 2 diabetes mellitus with diabetic neuropathy, unspecified; F03.90 Unspecified dementia, unspecified severity, without behavioral disturbance, psychotic disturbance, mood disturbance, and anxiety; K21.9 Gastro-esophageal reflux disease without esophagitis; K59.09 Other constipation; M19.90 Unspecified osteoarthritis, unspecified site; M54.9 Dorsalgia, unspecified; G47.33 Obstructive sleep apnea (adult) (pediatric); E66.9 Obesity, unspecified; Z79.4 Long term (current) use of insulin; Z88.0 Allergy status to penicillin; Z79.899 Other long term (current) drug therapy; Z79.84 Long term (current) use of oral hypoglycemic drugs; Z87.891 Personal history of nicotine dependence; Z99.81 Dependence on supplemental oxygen; Z86.73 Personal history of transient ischemic attack (TIA), and cerebral infarction without residual deficits; Z79.01 Long term (current) use of anticoagulants
CPT/HCPCS: 36415; 80053; 82947; 85025; 94640; 94660; 94664; 94760

== ENCOUNTER 2022-02-24 02:36 | Emergency (ER) | payer MEDICARE, MEDICAID ==
[~2022-02-24] VITALS: Ht 155 cm; Wt 90.0 kg
[~2022-02-24 02:36] MED LIST: ATOR20TA66 PO; BUDE10.2 IH; CHOL200074 PO; CITA20TA9 PO; CYAN500T8 PO; DONE10TA41 PO; DOXY100C5 PO; DULO30CA3 PO; DULO30CA49 PO; FLUT9.9S NSEACH; FOLI1TAB33 PO; FURO20TA4 PO; GLUC-200 PO; HYDR-3817 PO; INSU100I29 SQ; INSU100V SQ; INSU100V6 SQ; IPRA3AMP31 IH; LEVO150T6 PO; LISI20TA26 PO; MEMA5TAB PO; METF750T45 PO; MICO90PO TOP; NICO-685 TD; NICO1PAT34 TD; PEN-53 MC; PRD10T PO; RIVA20TA PO; RT-ALBUINH IH; SENN1TAB76 PO; SPIR25TA PO; TIOT4MIS2 IH; TRAM50TA3 PO; TUSSIONEX PO; UMEC62.5 IH
[2022-02-24 03:01] LABS: BASOPHILS % (AUTO) 0 % (0-10); EOSINOPHILS # (AUTO) 0.2 10^3/uL (0.0-0.3); EOSINOPHILS % (AUTO) 2 % (0-10); HEMATOCRIT 49 % (35-52); HEMOGLOBIN 13.9 g/dL (11.5-16.0); LYMPHOCYTES # (AUTO) 1.1 10^3/uL (1.0-4.0); LYMPHOCYTES % (AUTO) 11 % (12-44); MEAN CORPUSCULAR HEMOGLOBIN 28 pg (25-34); MEAN CORPUSCULAR HGB CONC 28 g/dL (32-36); MEAN CORPUSCULAR VOLUME 98 fL (80-99); MEAN PLATELET VOLUME 10.5 fL (9.0-12.2); MONOCYTES # (AUTO) 0.7 10^3/uL (0.0-1.0); MONOCYTES % (AUTO) 7 % (0-12); NEUTROPHILS # (AUTO) 8.1 10^3/uL (1.8-7.8); NEUTROPHILS % (AUTO) 80 % (42-75); PLATELET COUNT 244 10^3/uL (130-400); WHITE BLOOD COUNT 10.1 10^3/uL (4.3-11.0)
[2022-02-24 03:14] LABS: ALBUMIN 3.7 GM/DL (3.2-4.5); CHLORIDE 90 MMOL/L (98-107); POTASSIUM 4.3 MMOL/L (3.6-5.0); SODIUM 140 MMOL/L (135-145)
[2022-02-24 03:15] LABS: CALCIUM 9.3 MG/DL (8.5-10.1)
[2022-02-24 03:16] LABS: GLUCOSE 131 MG/DL (70-105); TOTAL PROTEIN 7.4 GM/DL (6.4-8.2)
[2022-02-24 03:17] LABS: CARBON DIOXIDE 35 MMOL/L (21-32)
[2022-02-24 03:18] LABS: BILIRUBIN,TOTAL 0.5 MG/DL (0.1-1.0)
[2022-02-24 03:20] LABS: ALKALINE PHOSPHATASE 92 U/L (40-136); CREATININE SERUM 0.78 MG/DL (0.60-1.30); GFR ESTIMATED 84
[2022-02-24 03:21] LABS: BUN/CREATININE RATIO 10
[2022-02-24 03:23] LABS: ALANINE AMINOTRANSFERASE 11 U/L (0-55); MAGNESIUM 1.8 MG/DL (1.6-2.4)
[2022-02-24 03:24] LABS: CREATINE KINASE 25 U/L (29-168)
[2022-02-24 03:30] LABS: CREATINE KINASE MB 1.8 NG/ML (<6.6)
--- NOTE | 2022-02-24 03:44 | ED Fall/Injury ---
General Chief Complaint: Trauma-Non Activation Stated Complaint: FALL Nursing Triage Note: PATIENT FOUND ON HER BOTTOM ON THE FLOOR AT HER FACILITY. PATIENT DOES NOT REMEMBER FALLING. PATIENT COMPLAINT OF PAIN IN HER COCCYX AND KNEES. PATIENT ARRIVED WITH SOB. OXYGEN VIA NC AT 4L 80% Source: patient (POOR HISTORIAN AND HAS NO RECOLLECTION OF EVENTS--PT HAS DEMENTIA), EMS, [facility] records, old records History of Present Illness Date Seen by Provider: Feb 24, 2022 Time Seen by Provider: 02:37 Initial Comments PT ARRIVES VIA EMS FROM [facility]--NO IMMOBILIZATION PT HAD AN UNWITNESSED "FALL" TONIGHT--PT WAS FOUND BY STAFF IN A SITTING POSITION IN HER ROOM PT DOES NOT REMEMBER ANYTHING ABOUT THE EVENT PT C/O PAIN TO "BUTT" ALSO C/O PAIN TO BOTH KNEES AND BOTH HIPS DENIES HEADACHE DENIES DIZZINESS DENIES NECK OR BACK PAIN--ONLY "BUTT" PAIN NO PARESTHESIAS OR MOTOR DEFICITS NO NAUSEA/VOMITING NO CHEST PAIN NO SHORTNESS OF BREATH--PT WEARS HOME O2 AT 4L/NC CONTINUOUSLY NO ABDOMINAL PAIN PT IS ON XARELTO PT DOES STATE THAT SHE HAD "ONE DRINK" TONIGHT PT HAS A WALKER, BUT DID NOT APPEAR THAT SHE WAS USING IT AT THE TIME OF THE INCIDENT PCP: Allergies and Home Medications Allergies Coded Allergies: Penicillins (Verified Allergy, Unknown, Rash, 11/26/21) Patient Home Medication List Home Medication List Reviewed: Yes Albuterol Sulfate (Proair Hfa) 1 Puff Puff, 2 PUFF IH Q4H PRN for SHORTNESS OF BREATH Prescribed by: ALONDRA FLORES on 12/03/21 05 Atorvastatin Calcium (Atorvastatin Calcium) 20 Mg Tablet, 20 MG PO DAILY Prescribed by: ALONDRA FLORES on 12/03/21 0555 Budesonide/Formoterol Fumarate (Symbicort 160-4.5 Mcg Inhaler) 160 Mcg-4.5 Mcg/Actuation Hfa.aer.ad, 2 PUFF IH BID Prescribed by: ALONDRA FLORES on 12/03/21 05 Cholecalciferol (Vitamin D3) (Vitamin D3) 50 Mcg (2000 Unit) Capsule, 50 MCG PO DAILY Prescribed by: ALONDRA FLORES on 12/03/21 05 Citalopram Hydrobromide (Citalopram HBr) 20 Mg Tablet, 20 MG PO DAILY Prescribed by: ALONDRA FLORES on 12/03/21 05 Cyanocobalamin (Vitamin B-12) (Vitamin B-12) 500 Mcg Tablet, 500 MCG PO DAILY Prescribed by: ALONDRA FLORES on 12/03/21 05 Donepezil HCl (Donepezil HCl) 10 Mg Tablet, 10 MG PO HS Prescribed by: ALONDRA FLORES on 12/03/21 05 Duloxetine HCl (Cymbalta) 30 Mg Capsule.dr, 30 MG PO BID Prescribed by: ALONDRA FLORES on 12/03/21 05 Folic Acid (Folic Acid) 1 Mg Tablet, 1 MG PO 1800 Prescribed by: ALONDRA FLORES on 12/03/21554 Furosemide (Furosemide) 20 Mg Tablet, 20 MG PO DAILY Prescribed by: ALONDRA FLORES on 12/03/21554 Insulin Detemir (Levemir Flextouch) 100 Unit/Ml (3 Ml) Insuln.pen, 15 UNIT SQ BID Prescribed by: ALONDRA FLORES on 12/03/21554 Levothyroxine Sodium (Levothyroxine Sodium) 150 Mcg Tablet, 150 MCG PO DAILY Prescribed by: ALONDRA FLORES on 12/03/21 05 Lisinopril (Lisinopril) 20 Mg Tablet, 20 MG PO DAILY Prescribed by: ALONDRA FLORES on 12/03/21554 Memantine HCl (Namenda) 5 Mg Tablet, 20 MG PO DAILY Prescribed by: ALONDRA FLORES on 12/03/21 05 Metformin HCl (Metformin HCl ER) 750 Mg Tab.er.24h, 750 MG PO BID WITH MEALS Prescribed by: ALONDRA FLORES on 12/03/21 05 Miconazole Nitrate (Lotrimin AF) 2 % Powder, 0 GM TOP BID Prescribed by: ALONDRA FLORES on 12/03/21 05 Nicotine (Nicoderm Cq) 21 Mg/24 Hour Patch.td24, 21 MG TD DAILY Prescribed by: ALONDRA FLORES on 12/03/21554 Pen Needle, Diabetic (Advocate Pen Needle) 33 Gauge X 5/32" Dis.needle, EACH MC BID, (DME) Prescribed by: ALONDRA FLORES on 12/03/21 05 Rivaroxaban (Xarelto) 20 Mg Tablet, 20 MG PO 1800 W/SUPPER Prescribed by: ALONDRA FLORES on 12/03/21554 Sennosides/Docusate Sodium (Stool Softener-Laxative Tablet) 8.6 Mg-50 Mg Tablet, 1 EA PO BID PRN for CONSTIPATION-1ST LINE Prescribed by: ALONDRA FLORES on 12/03/21554 Spironolactone (Aldactone) 25 Mg Tablet, 25 MG PO DAILY Prescribed by: ALONDRA FLORES on 12/03/21554 Umeclidinium Fraser (Incruse Ellipta) 62.5 Mcg/Actuation Blst.w.dev, 1 PUFF IH DAILY Prescribed by: ALONDRA FLORES on 12/03/21554 Review of Systems Review of Systems Constitutional: no symptoms reported Eyes: No Symptoms Reported Ears, Nose, Mouth, Throat: no symptoms reported Respiratory: no symptoms reported Cardiovascular: no symptoms reported Gastrointestinal: no symptoms reported Genitourinary: no symptoms reported Musculoskeletal: see HPI Skin: no symptoms reported Psychiatric/Neurological: See HPI; Denies Headache, Denies Numbness, Denies Paresthesia, Denies Seizure, Denies Tingling, Denies Tremors, Denies Weakness Past Pnojqwz-Ybjzot-Mwqxdk Hx Patient Social History Tobacco Use?: Yes Tobacco type used: Cigarettes Smoking Status: Current Everyday Smoker Use of E-Cig and/or Vaping dev: No Substance use?: No Alcohol Use?: Yes Alcohol Frequency: Once in a while Pt feels they are or have been: No Immunizations Up To Date Influenza Vaccine Up-to-Date: No; Not Current First/Initial COVID19 Vaccinat: 11/22/2020 Second COVID19 Vaccination Harrison: 01/16/2021 Past Medical History Surgery/Hospitalization HX: Hyterectomy 20 years ago Surgeries: Yes Hysterectomy Respiratory: Yes (O2 DEPENDENT AT 4L/NC CONTINUOUSLY, PT STILL SMOKES) COPD Currently Using CPAP: Yes Currently Using BIPAP: No Cardiac: Yes Chronic Edema/Swelling, High Cholesterol, Hypertension Neurological: Yes Dementia, Neuropathy, Stroke [employer] History: Hysterectomy, Menopausal Genitourinary: Yes Bladder Infection Gastrointestinal: Yes Gastroesophageal Reflux, Chronic Constipation Musculoskeletal: Yes Degenerate Disk Disease, Arthritis, Chronic Back Pain Endocrine: Yes (MORBID OBESITY) Diabetes, Insulin dep HEENT: No Cancer: No Psychosocial: No Integumentary: No Blood Disorders: No Physical Exam Vital Signs Vital Signs - First Documented 02/24/22 02:40 Temp 37.1 Pulse 78 Resp 20 B/P (MAP) 147/92 (110) Pulse Ox 82 O2 Delivery Nasal Cannula O2 Flow Rate 4.00 Capillary Refill : Less Than 3 Seconds Height, Weight, BMI Height: '" Weight: lbs. oz. kg; 37.00 BMI Method: General Appearance: WD/WN, no apparent distress, obese, other (SITTING UP, DOES NOT APPEAR TO BE IN ANY DISCOMFORT OR DISTRESS;SLIGHTLY DROWSY. REEKS OF CIGARETTES) HEENT: PERRL/EOMI Neck: non-tender, full range of motion, supple, normal inspection Cardiovascular: regular rate, rhythm, no murmur Respiratory: chest non-tender, normal breath sounds, no respiratory distress, no accessory muscle use, decreased breath sounds (IN BASES), other (POOR INSPIRATION) Gastrointestinal: non tender, soft Back: no CVA tenderness, no vertebral tenderness, other (TENDERNESS TO SACRUM/COCCYX AREA) Extremities: pedal edema (3+ EDEMA TO LOWER LEGS AND FEET, WITH DIFFUSE ERYTHEMA TO LOWER LEGS AND FEET. EXTENSIVE SCALING OF SKIN), other (MILD TENDERNESS TO BOTH KNEES AND HIPS, BUT NO EXTERNAL EVIDENCE OF TRAUMA AND PT ABLE TO MOVE LEGS WITHOUT DIFFICULTY) Neurologic/Psychiatric: no motor/sensory deficits (HX PERIPHERAL NEUROPATHY, BUT DOES HAVE SENSATION TO FEET), alert, normal mood/affect, oriented x 3 (BUT POOR MEMORY. ) Skin: normal color, warm/dry, other (NO EXTERNAL EVIDENCE OF TRAUMA ANYWHERE) Neelima Coma Score Best Eye Response: (4) Open Spontaneously Best Verbal Response: (5) Oriented (BUT POOR MEMORY) Best Motor Response: (6) Obeys Commands Neelima Total: 15 Progress/Results/Core Measures Results/Orders Lab Results Laboratory Tests Test 02/24/22 02:43 02/24/22 02:49 02/24/22 02:53 02/24/22 03:58 Range/Units Glucometer 136 H 70-110 MG/DL Influenza Type A (RT-PCR) Not Detected Not Detecte Influenza Type B (RT-PCR) Not Detected Not Detecte SARS-CoV-2 RNA (RT-PCR) Not Detected Not Detecte White Blood Count 10.1 4.3-11.0 10^3/uL Red Blood Count 5.05 3.80-5.11 10^6/uL Hemoglobin 13.9 11.5-16.0 g/dL Hematocrit 49 35-52 % Mean Corpuscular Volume 98 80-99 fL Mean Corpuscular Hemoglobin 28 25-34 pg Mean Corpuscular Hemoglobin Concent 28 L 32-36 g/dL Red Cell Distribution Width 18.6 H 10.0-14.5 % Platelet Count 244 130-400 10^3/uL Mean Platelet Volume 10.5 9.0-12.2 fL Immature Granulocyte % (Auto) 0 % Neutrophils (%) (Auto) 80 H 42-75 % Lymphocytes (%) (Auto) 11 L 12-44 % Monocytes (%) (Auto) 7 0-12 % Eosinophils (%) (Auto) 2 0-10 % Basophils (%) (Auto) 0 0-10 % Neutrophils # (Auto) 8.1 H 1.8-7.8 10^3/uL Lymphocytes # (Auto) 1.1 1.0-4.0 10^3/uL Monocytes # (Auto) 0.7 0.0-1.0 10^3/uL Eosinophils # (Auto) 0.2 0.0-0.3 10^3/uL Basophils # (Auto) 0.0 0.0-0.1 10^3/uL Immature Granulocyte # (Auto) 0.0 0.0-0.1 10^3/uL Sodium Level 140 135-145 MMOL/L Potassium Level 4.3 3.6-5.0 MMOL/L Chloride Level 90 L 98-107 MMOL/L Carbon Dioxide Level 35 H 21-32 MMOL/L Anion Gap 15 H 5-14 MMOL/L Blood Urea Nitrogen 8 7-18 MG/DL Creatinine 0.78 0.60-1.30 MG/DL Estimat Glomerular Filtration Rate 84 BUN/Creatinine Ratio 10 Glucose Level 131 H 70-105 MG/DL Calcium Level 9.3 8.5-10.1 MG/DL Corrected Calcium 9.5 8.5-10.1 MG/DL Magnesium Level 1.8 1.6-2.4 MG/DL Total Bilirubin 0.5 0.1-1.0 MG/DL Aspartate Amino Transf (AST/SGOT) 15 5-34 U/L Alanine Aminotransferase (ALT/SGPT) 11 0-55 U/L Alkaline Phosphatase 92 40-136 U/L Total Creatine Kinase 25 L 29-168 U/L Creatine Kinase MB 1.8 <6.6 NG/ML Myoglobin 37.0 10.0-92.0 NG/ML Total Protein 7.4 6.4-8.2 GM/DL Albumin 3.7 3.2-4.5 GM/DL Serum Alcohol < 10 <10 MG/DL Urine Color YELLOW Urine Clarity CLEAR Urine pH 6.0 5-9 Urine Specific Yale 1.010 L 1.016-1.022 Urine Protein NEGATIVE NEGATIVE Urine Glucose (UA) NEGATIVE NEGATIVE Urine Ketones NEGATIVE NEGATIVE Urine Nitrite NEGATIVE NEGATIVE Urine Bilirubin NEGATIVE NEGATIVE Urine Urobilinogen 0.2 < = 1.0 MG/DL Urine Leukocyte Esterase NEGATIVE NEGATIVE Urine RBC (Auto) NEGATIVE NEGATIVE Urine RBC NONE /HPF Urine WBC NONE /HPF Urine Crystals NONE /LPF Urine Bacteria NEGATIVE /HPF Urine Casts NONE /LPF Urine Mucus NEGATIVE /LPF Urine Culture Indicated NO My Orders Orders - FOSTER HARP DO Ed Iv/Invasive Line Start (02/24/22 02:41) Monitor-Rhythm Ecg Trace Only (02/24/22 02:41) Straight Cath For Spec.-Adult (02/24/22 02:41) Ct Head/Cervical Spine Wo (02/24/22 02:41) Ct Thoracic/Lumbar Spine Wo (02/24/22 02:41) Chest 1 View, Ap/Pa Only (02/24/22 02:41) Pelvis 1 To 2 Views (02/24/22 02:41) Femur, Bilateral, 2 Views (02/24/22 02:41) Alcohol (02/24/22 02:41) Cbc With Automated Diff (02/24/22 02:41) Comprehensive Metabolic Panel (02/24/22 02:41) Creatine Kinase (02/24/22 02:41) Creatine Kinase Mb (02/24/22 02:41) Magnesium (02/24/22 02:41) Ua Culture If Indicated (02/24/22 02:41) Myoglobin Serum (02/24/22 02:41) Knee, 3 Views, Bilateral (02/24/22 02:41) Covid 19 Inhouse Test (02/24/22 02:48) Influenza A And B By Pcr (02/24/22 02:48) Isolation Central Supply Req (02/24/22 02:48) Vital Signs/I&O 02/24/22 02/24/22 02:40 02:40 Temp 37.1 Pulse 78 Resp 20 B/P (MAP) 147/92 (110) Pulse Ox 82 O2 Delivery Nasal Cannula Nasal Cannula O2 Flow Rate 4.00 Blood Pressure Mean: 110 FSBG Bedside Testing Finger Stick Blood Glucose: 136 Progress Progress Note : Progress Note INITIAL O2 SATS WERE IN 80'S ON 4L/NC PLACED ON OXIMASK AT 10L AND O2 SATS UP TO LOW 90'S--PT APPEARS TO BE HYPOVENTILATING-PT IS MORBIDLY OBESE AND HAS COPD WELL SLEEP APNEA PT VOICES NO COMPLAINT OF SHORTNESS OF BREATH AND DOES NOT APPEAR DYSPNEIC MARKED DELAY IN OBTAINING CT REPORTS Diagnostic Imaging Comments XRAYS--ALL PENDING RADIOLOGIST REVIEW: CXR--BILATERAL INTERSTITIAL PROMINENCE-NO PRIOR XRAYS FOR COMPARISON PELVIS--NO ACUTE PROCESS BILATERAL FEMURS--NO ACUTE PROCESS BILATERAL KNEES--NO ACUTE PROCESS CT HEAD/CERVICAL SPINE--PER [facility] VIA FAX AT [id number] AND [id number] -NO ACUTE PROCESS, CHRONIC CHANGES CT THORACIC/LUMBAR SPINE--PER [facility] VIA FAX AT 8039 -NO ACUTE PROCESS, CHRONIC CHANGES Reviewed: Reviewed by Me Departure Impression Primary Impression: Unwitnessed fall Additional Impressions: Dementia UNKOWN LOSS OF CONSCIOUSNESS SACRUM AND COCCYX PAIN Bilateral hip pain Bilateral knee pain Disposition: 03 XFER SNF Condition: Stable Departure-Patient Inst. Decision time for Depature: 05:57 Referrals: GERHARD ZAMORANO DO (PCP/Family) Primary Care Physician Patient Instructions: Contusion (DC), Hip Pain ED, Knee Pain ED, Preventing Falls in Older Adults Add. Discharge Instructions: CONTINUE YOUR MEDICATIONS PRESCRIBED TYLENOL NEEDED FOR PAIN FOLLOW UP WITH YOUR DR IN 2-3 DAYS IF NO BETTER All discharge instructions reviewed with patient and/or family. Voiced understanding. FOSTER HARP DO Feb 24, 2022 03:44
[2022-02-24 04:21] LABS: CLARITY,URINE CLEAR; COLOR,URINE YELLOW; GLUCOSE, URINE (UA) NEGATIVE (NEGATIVE); KETONES,URINE NEGATIVE (NEGATIVE); PROTEIN,URINE NEGATIVE (NEGATIVE)
[2022-02-24 04:22] LABS: BACTERIA,URINE NEGATIVE /HPF; BILIRUBIN,URINE NEGATIVE (NEGATIVE); LEUKOCYTE ESTERASE ,URINE NEGATIVE (NEGATIVE); NITRITE,URINE NEGATIVE (NEGATIVE)
[2022-02-24 06:40] VITALS: BP 114/67
--- NOTE | 2022-02-24 06:47 | Diagnostic Imaging Report ---
CLINICAL INDICATION: Patient found on her bottom on the floor her facility. Patient does not remember falling. Patient complains of pain in coccyx and knees. EXAMS: 1: X-ray of the pelvis AP view. 2: X-ray of both femur, multiple views. 3: X-ray of both knees, multiple views. COMPARISONS: None. FINDINGS: X-ray of the pelvis shows no acute fracture or dislocation. Sacrum, pelvis, and hips are intact. There are small spurs involving the lower thoracic spine. X-ray of both femur show no acute fracture or dislocation. Both hips are unremarkable. Both knees show no acute fracture or dislocation. There are no knee effusions. There is moderate medial compartment narrowing involving the right knee with mild to moderately hypertrophic medial compartment spurs involving the right knee. Left knee shows mild medial compartment narrowing and minimal spurring of the medial compartment. There is no other significant abnormality. IMPRESSION: X-rays of the pelvis, femurs, and knees show no acute fracture or dislocation. Dictated by: Dictated on workstation # [id number]
--- NOTE | 2022-02-24 06:48 | Diagnostic Imaging Report ---
CLINICAL INDICATION: Patient status post fall. Patient short of breath. EXAM: Portable chest x-ray upright view. COMPARISON: None. FINDINGS: Lungs/pleura: There are increased lung markings throughout both lungs. There is no pleural effusion or pneumothorax. Mediastinum: Unremarkable. Pulmonary vasculature: There is mild pulmonary vascular prominence centrally. Heart: There is cardiomegaly. Bones/extrathoracic soft tissue: There are degenerative spurs involving the spine. IMPRESSION: 1: There is no acute traumatic finding seen. There is no fracture. 2: There are diffuse increased markings throughout both lungs which may be related to chronic lung changes or interstitial disease. 3: There is cardiomegaly with mild pulmonary vascular prominence centrally. Dictated by: Dictated on workstation # [id number]
--- NOTE | 2022-02-24 06:51 | Diagnostic Imaging Report ---
CLINICAL INDICATION: Patient is status post fall found on floor. Exam: Axial CT scan of the thoracic and lumbar spine performed without IV contrast. Sagittal and coronal reformations were performed. Bone and soft tissue windows were created. Auto Exposure Controls were utilized during the CT exam to meet ALARA standards for radiation dose reduction. Comparison: None. Findings: There is no acute thoracic or lumbar fracture or dislocation. Thoracic and lumbar spine have normal alignment. The visualized extrathoracic, and lumbar soft tissue structures are unremarkable. There is a diffuse disk bulge with severe loss of disk space height at the L5-S1 level. There is at least moderate bilateral neural foramen narrowing at the L5-S1 level. There is intraosseous hemangioma within the T11 vertebra. There are small spurs involving the thoracic and lumbar spine. Impression: There is no acute thoracic spine and lumbar spine fracture or dislocation. I agree with [facility] report. Dictated by: Dictated on workstation # [id number]
--- NOTE | 2022-02-24 07:02 | Diagnostic Imaging Report ---
CLINICAL INDICATION: Patient found on the floor at our facility. Patient does not remember falling. Exam: Head CT without IV contrast with sagittal and coronal reformations. Axial CT scan of the cervical spine with sagittal and coronal reformations. Auto Exposure Controls were utilized during the CT exam to meet ALARA standards for radiation dose reduction. Comparison: None. Findings: Head CT: There is no evidence of intracranial hemorrhage, brain herniation, or midline shift. There is no hydrocephalus. There is a moderate sized area of encephalomalacia involving the posterior left temporal lobe, left parietal lobe. There is a small area of encephalomalacia involving the right occipital lobe. There is a prominent perivascular space versus chronic lacunar infarct involving the right basal ganglia region. There are small chronic infarcts involving the left caudate anteriorly. The extracranial soft tissue, skull, and orbits are unremarkable. There is no skull fracture. Cervical spine: There is streak artifact from patient body habitus which limits evaluation of the mid to lower cervical spine. There is no acute cervical spine fracture or dislocation. There are small degenerative spurs involving the cervical spine. The vertebral body heights and intervertebral disk heights are maintained. There is no significant neck soft tissue abnormality. Visualized upper lung malloy show no significant abnormality. Impression: 1: There is no CT evidence of acute intracranial process. There is no skull fracture. 2: There is no acute cervical spine fracture or dislocation. I agree with [facility] report. Dictated by: Dictated on workstation # [id number]
== END 2022-02-24 06:41 ==
LOC: EDUNIT# 02:36 → ER 02:37
DX: M25.552 Pain in left hip (principal); M25.551 Pain in right hip; M25.562 Pain in left knee; M25.561 Pain in right knee; F03.90 Unspecified dementia, unspecified severity, without behavioral disturbance, psychotic disturbance, mood disturbance, and anxiety; M53.3 Sacrococcygeal disorders, not elsewhere classified; R55 Syncope and collapse; E66.01 Morbid (severe) obesity due to excess calories; E11.9 Type 2 diabetes mellitus without complications; J44.9 Chronic obstructive pulmonary disease, unspecified; F17.210 Nicotine dependence, cigarettes, uncomplicated; Z68.37 Body mass index [BMI] 37.0-37.9, adult; Z99.81 Dependence on supplemental oxygen; Z79.4 Long term (current) use of insulin; Z20.822 Contact with and (suspected) exposure to COVID-19; Z28.310 Unvaccinated for COVID-19; W19.XXXA Unspecified fall, initial encounter
CPT/HCPCS: 51701; 70450; 71045; 72125; 72128; 72131; 72170; 73552; 73562; 80053; 81000; 82550; 82553; 82947; 83735; 83874; 85025; 87636; 93041; 99284; G0480; 36415; 80320

== ENCOUNTER 2022-03-27 17:56 | Inpatient (IN) | payer MEDICARE, MEDICAID ==
[~2022-03-27] VITALS: Ht 160 cm; Wt 106.2 kg
[2022-03-27 18:18] LABS: BASOPHILS % (AUTO) 0 % (0-10); EOSINOPHILS # (AUTO) 0.1 10^3/uL (0.0-0.3); EOSINOPHILS % (AUTO) 1 % (0-10); HEMATOCRIT 47 % (35-52); HEMOGLOBIN 13.1 g/dL (11.5-16.0); LYMPHOCYTES # (AUTO) 1.2 10^3/uL (1.0-4.0); LYMPHOCYTES % (AUTO) 22 % (12-44); MEAN CORPUSCULAR HEMOGLOBIN 28 pg (25-34); MEAN CORPUSCULAR HGB CONC 28 g/dL (32-36); MEAN CORPUSCULAR VOLUME 101 fL (80-99); MEAN PLATELET VOLUME 9.4 fL (9.0-12.2); MONOCYTES # (AUTO) 0.6 10^3/uL (0.0-1.0); MONOCYTES % (AUTO) 10 % (0-12); NEUTROPHILS # (AUTO) 3.7 10^3/uL (1.8-7.8); NEUTROPHILS % (AUTO) 67 % (42-75); PLATELET COUNT 210 10^3/uL (130-400); WHITE BLOOD COUNT 5.5 10^3/uL (4.3-11.0)
[2022-03-27] MEDS ORDERED: methylPREDNISolone 125 MG (Solu-MEDROL) VIAL IV STA (18:22)
[2022-03-27] MEDS ORDERED: RT-ALBUTEROL SULF 2.5 MG/3 ML PRE-MIX VIAL INH STA (18:22)
--- NOTE | 2022-03-27 18:28 | Diagnostic Imaging Report ---
EXAMINATION: Chest, one view. HISTORY: Short of breath. COMPARISON: 02/24/2022. FINDINGS: There is moderate edema. Heart is enlarged. No pleural effusion or pneumothorax. IMPRESSION: 1. Enlarged heart and moderate edema. Dictated by: Dictated on workstation # [id number]
[2022-03-27] MEDS ORDERED: RT-ALBUTEROL/IPRATROPIUM 3 ML (DUONEB) VIAL INH ONE (18:30)
--- NOTE | 2022-03-27 18:31 | ED Respiratory ---
General Chief Complaint: Respiratory Problems Stated Complaint: LOW OXYGEN Nursing Triage Note: PT ARRIVAL TO ER VIA [facility] FROM [facility] FOR SOA X3 WEEKS, BUT SIGNIFICANTLY WORSE TODAY. EMS FINDS PATIENT WITH SATS IN THE 70'S. PATIENT PLACED ON NRB MASK AT 10 LPM AND ARRIVES AT ER WITH O2 SATS IN MID 90'S. PT DOES HAVE IV IN LEFT AC 20G. PT WAS ALSO COMPLAINING OF SOME PALPATIONS. Source: EMS, assisted records Exam Limitations: other (PT WITH DEMENTIA, UNABLE TO GIVE ANY SIGNFICANT INFORMATION) History of Present Illness Date Seen by Provider: Mar 27, 2022 Time Seen by Provider: 17:59 Initial Comments PT ARRIVES VIA EMS FROM [facility] EMS STATES IT WAS REPORTED TO THEM BY LONG TERM STAFF THAT PT WAS BLUE AND O2 SAT OF 60% EMS PLACED PT ON NRB AT 10L AND THEY REPORT O2 SAT 100% PT IS UNABLE TO GIVE ANY INFORMATION, SHE APPEARS CONFUSED, IS TALKING SOMEWHAT NON-SENSICAL, IS AGITATED, TRYING TO GET OUT OF BED, ETC. PT HAS HISTORY OF COPD, DM, HTN, HYPOTHYROIDISM, DEMENTIA, EDEMA. PT IS DNR PCP: DR. ZAMORANO / DR. SALLIE GARLAND Allergies and Home Medications Allergies Coded Allergies: Penicillins (Verified Allergy, Unknown, Rash, 11/26/21) Patient Home Medication List Home Medication List Reviewed: Yes Albuterol Sulfate (Proair Hfa) 1 Puff Puff, 2 PUFF IH Q4H PRN for SHORTNESS OF BREATH Prescribed by: ALONDRA FLORES on 12/03/21 05 Atorvastatin Calcium (Atorvastatin Calcium) 20 Mg Tablet, 20 MG PO DAILY Prescribed by: ALONDRA FLORES on 12/03/21 0555 Budesonide/Formoterol Fumarate (Symbicort 160-4.5 Mcg Inhaler) 160 Mcg-4.5 Mcg/Actuation Hfa.aer.ad, 2 PUFF IH BID Prescribed by: ALONDRA FLORES on 12/03/21 05 Cholecalciferol (Vitamin D3) (Vitamin D3) 50 Mcg (2000 Unit) Capsule, 50 MCG PO DAILY Prescribed by: ALONDRA FLORES on 12/03/21 05 Citalopram Hydrobromide (Citalopram HBr) 20 Mg Tablet, 20 MG PO DAILY Prescribed by: ALONDRA FLORES on 12/03/21554 Cyanocobalamin (Vitamin B-12) (Vitamin B-12) 500 Mcg Tablet, 500 MCG PO DAILY Prescribed by: ALONDRA FLORES on 12/03/21554 Donepezil HCl (Donepezil HCl) 10 Mg Tablet, 10 MG PO HS Prescribed by: ALONDRA FLORES on 12/03/21554 Duloxetine HCl (Cymbalta) 30 Mg Capsule.dr, 30 MG PO BID Prescribed by: ALONDRA FLORES on 12/03/21554 Folic Acid (Folic Acid) 1 Mg Tablet, 1 MG PO 1800 Prescribed by: ALONDRA FLORES on 12/03/21554 Furosemide (Furosemide) 20 Mg Tablet, 20 MG PO DAILY Prescribed by: ALONDRA FLORES on 12/03/21554 Insulin Detemir (Levemir Flextouch) 100 Unit/Ml (3 Ml) Insuln.pen, 15 UNIT SQ BID Prescribed by: ALONDRA FLORES on 12/03/21554 Levothyroxine Sodium (Levothyroxine Sodium) 150 Mcg Tablet, 150 MCG PO DAILY Prescribed by: ALONDRA FLORES on 12/03/21554 Lisinopril (Lisinopril) 20 Mg Tablet, 20 MG PO DAILY Prescribed by: ALONDRA FLORES on 12/03/21554 Memantine HCl (Namenda) 5 Mg Tablet, 20 MG PO DAILY Prescribed by: ALONDRA FLORES on 12/03/21554 Metformin HCl (Metformin HCl ER) 750 Mg Tab.er.24h, 750 MG PO BID WITH MEALS Prescribed by: ALONDRA FLORES on 12/03/21554 Miconazole Nitrate (Lotrimin AF) 2 % Powder, 0 GM TOP BID Prescribed by: ALONDRA FLORES on 12/03/21554 Nicotine (Nicoderm Cq) 21 Mg/24 Hour Patch.td24, 21 MG TD DAILY Prescribed by: ALONDRA FLORES on 12/03/21554 Pen Needle, Diabetic (Advocate Pen Needle) 33 Gauge X 5/32" Dis.needle, EACH MC BID, (DME) Prescribed by: ALONDRA FLORES on 12/03/21554 Rivaroxaban (Xarelto) 20 Mg Tablet, 20 MG PO 1800 W/SUPPER Prescribed by: ALONDRA FLORES on 12/03/21554 Sennosides/Docusate Sodium (Stool Softener-Laxative Tablet) 8.6 Mg-50 Mg Tablet, 1 EA PO BID PRN for CONSTIPATION-1ST LINE Prescribed by: ALONDRA FLORES on 12/03/21554 Spironolactone (Aldactone) 25 Mg Tablet, 25 MG PO DAILY Prescribed by: ALONDRA FLORES on 12/03/21554 Umeclidinium [place] (Incruse Ellipta) 62.5 Mcg/Actuation Blst.w.dev, 1 PUFF IH DAILY Prescribed by: ALONDRA FLORES on 12/03/21554 Review of Systems Review of Systems Constitutional: other (UNKNOWN) Respiratory: see HPI Past Uydkcyi-Kscrnx-Lfiyvc Hx Patient Social History Tobacco Use?: Yes Tobacco type used: Cigarettes Smoking Status: Current Everyday Smoker Use of E-Cig and/or Vaping dev: No Substance use?: No Alcohol Use?: Yes Alcohol Frequency: Once in a while Pt feels they are or have been: No Immunizations Up To Date Influenza Vaccine Up-to-Date: No; Not Current First/Initial COVID19 Vaccinat: 11/22/2020 Second COVID19 Vaccination Harrison: 01/16/2021 Third COVID19 Vaccination Date: 11/22/2020 Past Medical History Surgery/Hospitalization HX: Hyterectomy 20 years ago Surgeries: Yes Hysterectomy Respiratory: Yes (O2 DEPENDENT AT 4L/NC CONTINUOUSLY, PT STILL SMOKES) Sleep Apnea, COPD Currently Using CPAP: Yes Currently Using BIPAP: No Cardiac: Yes Chronic Edema/Swelling, High Cholesterol, Hypertension Neurological: Yes Dementia, Neuropathy, Stroke 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 oz. kg; 37.00 BMI Method: General Appearance: mild distress, obese, other (PT IS DYSPNEIC, AGITATED, CONFUSED, TRYING TO GET OUT OF BED, ETC. STRONG ODOR OF CIGARETTES) Respiratory: respiratory distress, decreased breath sounds, accessory muscle use, other (DYSPNEIC, DECREASED AERATION IN ALL LUNG DEL ROSARIO. ) Cardiovascular: regular rate, rhythm Gastrointestinal: non tender, soft Extremities: other (LEGS 3-4+ EDEMA BILATERALLY, LEGS WARM AND ERYTHEMATOUS, WITH EXTENSIVE SCALING OF SKIN. NO OBVIOUS OPEN WOUNDS, ETC. ) Neurologic/Psychiatric: no motor/sensory deficits, alert, other ( ABOVE. PT IS CONFUSED, SPEECH IS CLEAR BUT FREQUENTLY NON-SENSICAL. MOVES ALL EXRREMITIES AND NO FOCAL DEFICITS. BUT PT DOES NOT FOLLOW COMMANDS WEL. ) Skin: normal color, warm/dry Focused Exam Lactate Level 03/27/22 18:00: Lactic Acid Level 0.88 Lactic Acid Level Laboratory Tests Test 03/27/22 18:00 Lactic Acid Level 0.88 MMOL/L (0.50-2.00) Progress/Results/Core Measures Suspected Sepsis SIRS Temperature: Pulse: 93 Respiratory Rate: 28 Laboratory Tests 03/27/22 18:00: White Blood Count 5.5 Blood Pressure 148 /104 Mean: 119 03/27/22 18:00: Lactic Acid Level 0.88 Laboratory Tests 03/27/22 18:00: Creatinine 0.76, INR Comment 1.2, Platelet Count 210, Total Bilirubin 0.4 Results/Orders Lab Results Laboratory Tests Test 03/27/22 18:00 03/27/22 18:18 03/27/22 18:25 03/27/22 18:49 Range/Units White Blood Count 5.5 4.3-11.0 10^3/uL Red Blood Count 4.69 3.80-5.11 10^6/uL Hemoglobin 13.1 11.5-16.0 g/dL Hematocrit 47 35-52 % Mean Corpuscular Volume 101 H 80-99 fL Mean Corpuscular Hemoglobin 28 25-34 pg Mean Corpuscular Hemoglobin Concent 28 L 32-36 g/dL Red Cell Distribution Width 21.2 H 10.0-14.5 % Platelet Count 210 130-400 10^3/uL Mean Platelet Volume 9.4 9.0-12.2 fL Immature Granulocyte % (Auto) 0 % Neutrophils (%) (Auto) 67 42-75 % Lymphocytes (%) (Auto) 22 12-44 % Monocytes (%) (Auto) 10 0-12 % Eosinophils (%) (Auto) 1 0-10 % Basophils (%) (Auto) 0 0-10 % Neutrophils # (Auto) 3.7 1.8-7.8 10^3/uL Lymphocytes # (Auto) 1.2 1.0-4.0 10^3/uL Monocytes # (Auto) 0.6 0.0-1.0 10^3/uL Eosinophils # (Auto) 0.1 0.0-0.3 10^3/uL Basophils # (Auto) 0.0 0.0-0.1 10^3/uL Immature Granulocyte # (Auto) 0.0 0.0-0.1 10^3/uL Erythrocyte Sedimentation Rate 4 0-30 MM/HR Prothrombin Time 15.6 H 12.2-14.7 SEC INR Comment 1.2 0.8-1.4 Activated Partial Thromboplast Time 39 H 24-35 SEC D-Dimer 1.03 H 0.00-0.49 UG/ML Sodium Level 139 135-145 MMOL/L Potassium Level 4.3 3.6-5.0 MMOL/L Chloride Level 88 L 98-107 MMOL/L Carbon Dioxide Level 44 H 21-32 MMOL/L Anion Gap 7 5-14 MMOL/L Blood Urea Nitrogen 8 7-18 MG/DL Creatinine 0.76 0.60-1.30 MG/DL Estimat Glomerular Filtration Rate 87 BUN/Creatinine Ratio 11 Glucose Level 101 70-105 MG/DL Lactic Acid Level 0.88 0.50-2.00 MMOL/L Calcium Level 8.9 8.5-10.1 MG/DL Corrected Calcium 9.4 8.5-10.1 MG/DL Magnesium Level 1.9 1.6-2.4 MG/DL Total Bilirubin 0.4 0.1-1.0 MG/DL Aspartate Amino Transf (AST/SGOT) 18 5-34 U/L Alanine Aminotransferase (ALT/SGPT) 7 0-55 U/L Alkaline Phosphatase 74 40-136 U/L Total Creatine Kinase 18 L 29-168 U/L Creatine Kinase MB 0.8 <6.6 NG/ML Myoglobin 32.0 10.0-92.0 NG/ML Troponin I < 0.028 <0.028 NG/ML C-Reactive Protein High Sensitivity 3.03 H 0.00-0.50 MG/DL B-Type Natriuretic Peptide 279.5 H <100.0 PG/ML Total Protein 7.4 6.4-8.2 GM/DL Albumin 3.4 3.2-4.5 GM/DL Procalcitonin 0.08 <0.10 NG/ML TSH [place] Testing 1.63 0.35-4.94 UIU/ML Influenza Type A (RT-PCR) Not Detected Not Detecte Influenza Type B (RT-PCR) Not Detected Not Detecte SARS-CoV-2 RNA (RT-PCR) Detected H Not Detecte Blood Gas Puncture Site LEFT RADIAL Blood Gas Patient Temperature 37.7 Arterial Blood pH 7.27 *L 7.37-7.43 Arterial Blood Partial Pressure CO2 112 *H 35-45 MMHG Arterial Blood Partial Pressure O2 57 L 79-93 MMHG Arterial Blood HCO3 50 *H 23-27 MMOL/L Arterial Blood Total CO2 53.0 *H 21.0-31.0 MMOL/L Arterial Blood Oxygen Saturation 85 L 94-100 % Arterial Blood Base Excess 22.0 H -2.5-2.5 MMOL/L [place] Test POSITIVE Blood Gas Ventilator Setting NO Blood Gas Inspired Oxygen UNK Urine Color YELLOW Urine Clarity CLOUDY Urine pH 5.5 5-9 Urine Specific [place] 1.025 H 1.016-1.022 Urine Protein TRACE H NEGATIVE Urine Glucose (UA) NEGATIVE NEGATIVE Urine Ketones NEGATIVE NEGATIVE Urine Nitrite POSITIVE H NEGATIVE Urine Bilirubin NEGATIVE NEGATIVE Urine Urobilinogen 0.2 < = 1.0 MG/DL Urine Leukocyte Esterase 2+ H NEGATIVE Urine RBC (Auto) 2+ H NEGATIVE Urine RBC TNTC H /HPF Urine WBC TNTC H /HPF Urine Squamous Epithelial Cells 0-2 /HPF Urine Crystals NONE /LPF Urine Bacteria LARGE H /HPF Urine Casts NONE /LPF Urine Mucus NEGATIVE /LPF Urine Yeast MODERATE H /HPF Urine Culture Indicated CULTURE PENDING My Orders Orders - FOSTER HARP DO Ed Iv/Invasive Line Start (03/27/22 18:03) Ekg Tracing (03/27/22 18:03) O2 (03/27/22 18:03) Monitor-Rhythm Ecg Trace Only (03/27/22 18:03) Arterial Blood Gas (03/27/22 18:03) Bnp [place] (03/27/22 18:03) Cbc With Automated Diff (03/27/22 18:03) Comprehensive Metabolic Panel (03/27/22 18:03) Creatine Kinase (03/27/22 18:03) Creatine Kinase Mb (03/27/22 18:) Hs C Reactive Protein (03/27/22 18:) Fibrin Degradation Products (03/27/22 18:) Lactic Acid Analyzer (03/27/22 18:) Magnesium (03/27/22 18:03) Procalcitonin (Pct) (03/27/22 18:) Protime With Inr (03/27/22 18:) Partial Thromboplastin Time (03/27/22 18:) Thyroid Analyzer (03/27/22 18:) Ua Culture If Indicated (03/27/22 18:) Erythrocyte Sedimentation Rate (03/27/22 18:) Myoglobin Serum (03/27/22 18:) Troponin I [place] (03/27/22 18:) Chest 1 View, Ap/Pa Only (03/27/22 18:) Covid 19 Inhouse Test (03/27/22 18:) Influenza A And B By Pcr (03/27/22 18:) Isolation Central Supply Req (03/27/22 18:03) Blood Culture (03/27/22 18:) Sputum Culture (03/27/22 18:) Urine Culture (03/27/22 18:) Ed Iv/Invasive Line Start (03/27/22 18:03) Vital Signs Adult Sepsis Patie Q15M (03/27/22 18:03) O2 (03/27/22 18:03) Remove Rings In Anticipation O (03/27/22 18:) Albuterol Pre-Mix Nebs (Rt) (Proventil (03/27/22:) Albuterol/Ipra Inhalation Soln (Duoneb I (03/27/22 18:30) Dexamethasone Injection (Decadron Injec (03/27/22 18:) Rt Request For Service (03/27/22:) Methylprednisolone Sod Succ (Solu-Medrol (03/27/22:) Svn Small Volume Nebulizer (03/27/22 18:) Svn Small Volume Nebulizer (03/27/22:) Catheter(Urinary) Insert & Ass 03,15 (03/27/22 18:31) Lidocaine 2% (Urojet) (Xylocaine Urojet) (03/27/22 18:45) Furosemide Injection (Lasix Injection) (03/27/22 18:45) Lorazepam Injection (Ativan Injection) (03/27/22 18:45) Medications Given in ED Current Medications Medications Dose Ordered Sig/Afshan Route Start Time Stop Time Status Last Admin Dose Admin Dexamethasone Sodium Phosphate 20 mg ONCE ONCE IH 03/27/22 18:30 03/27/22 18:31 DC 03/27/22 18:52 20 MG Furosemide 80 mg ONCE ONCE IVP 03/27/22 18:45 03/27/22 18:46 DC 03/27/22 18:43 80 MG Lidocaine HCl 10 ml ONCE ONCE TOP 03/27/22 18:45 03/27/22 18:46 DC 03/27/22 18:43 10 ML Lorazepam 1 mg ONCE ONCE IVP 03/27/22 18:45 03/27/22 18:46 DC 03/27/22 18:43 1 MG Vital Signs/I&O 03/27/22 03/27/22 03/27/22 03/27/22 17:56 17:56 18:05 18:53 Pulse 93 98 Resp 28 26 B/P (MAP) 148/104 (119) Pulse Ox 97 91 91 O2 Delivery Room Air Nasal Cannula Nasal Cannula O2 Flow Rate 6.00 60.00 Capillary Refill : Less Than 3 Seconds Blood Pressure Mean: 119 Progress Note : Progress Note O2 SATS DROPPED TO 85% ON OXIMASK AT 10L RT CALLED FOR BIPAP, AND IN-LINE NEB TREATMENT PT ALSO GIVE ATIVAN FOR AGITATION GIVEN SOLU-MEDROL AND LASIX PT CALMED SIGNIFICANTLY WITH ATIVAN AND BIPAP. O2 SATS UP TO 100%, AND RESPIRATIONS EVEN AND UNLABORED, WITH INCREASED AERATION VITALS STABLE NO DETERIORATION IN PT'S CONDITION DURING ER STAY SON IS DPOA, AND IS HERE WITH [id number]. UPDATED THEM ON PT'S CONDITION, AND THEY VERIFIED THAT PT IS DNR/DNI UA IS PENDING AT TIME OF ADMIT. ECG Initial ECG Impression Date: Mar 27, 2022 Initial ECG Impression Time: 18:23 Initial ECG Rate: 90 Initial ECG Rhythm: Normal Sinus Initial ECG Impression: Nonspecific Changes Diagnostic Imaging Comments CXR--PER RADIOLOGIST REPORT AT 1831 FINDINGS: There is moderate edema. Heart is enlarged. No pleural effusion or pneumothorax. IMPRESSION: 1. Enlarged heart and moderate edema. Reviewed: Reviewed by Me Departure Communication (Admissions) 190--SPOKE WITH DR. SHAVER, ACCEPTS PT FOR ADMIT. ORDERS NOTED FOR DECADRON, ADMIT TO ICU 2004--REPORT TO E-ICU, NO ADDITIONAL RECOMMENDATIONS. WILL FOLLOW ABG'S AND BIPAP SETTINGS Impression Primary Impression: Acute respiratory failure due to COVID-19 Additional Impressions: Acute on chronic respiratory failure with hypoxia and hypercapnia Dementia IDDM (insulin dependent diabetes mellitus) HTN (hypertension) Bilateral leg edema CHF (congestive heart failure) Disposition: ADMITTED INPATIENT Condition: Improved Admissions Decision to Admit Reason: Admit from ER (General) Decision to Admit/Date: Mar 27, 2022 Time/Decision to Admit Time: 19:05 Departure-Patient Inst. Referrals: GERHARD ZAMORANO DO (PCP/Family) Primary Care Physician FOSTER HARP DO Mar 27, 2022 18:31
[2022-03-27 18:32] LABS: ALBUMIN 3.4 GM/DL (3.2-4.5); CHLORIDE 88 MMOL/L (98-107); POTASSIUM 4.3 MMOL/L (3.6-5.0); SODIUM 139 MMOL/L (135-145)
[2022-03-27 18:34] LABS: CALCIUM 8.9 MG/DL (8.5-10.1)
[2022-03-27 18:35] LABS: GLUCOSE 101 MG/DL (70-105); TOTAL PROTEIN 7.4 GM/DL (6.4-8.2)
[2022-03-27 18:36] LABS: CARBON DIOXIDE 44 MMOL/L (21-32); ERYTHROCYTE SEDIMENTATION RATE 4 MM/HR (0-30)
[2022-03-27 18:37] LABS: BILIRUBIN,TOTAL 0.4 MG/DL (0.1-1.0); FIBRIN DEGRADATION PRODUCTS 1.03 UG/ML (0.00-0.49); INR 1.2 (0.8-1.4); PROTHROMBIN TIME PATIENT 15.6 SEC (12.2-14.7)
[2022-03-27 18:38] LABS: ALKALINE PHOSPHATASE 74 U/L (40-136); CREATININE SERUM 0.76 MG/DL (0.60-1.30); GFR ESTIMATED 87
[2022-03-27 18:39] LABS: BUN/CREATININE RATIO 11
[2022-03-27 18:41] LABS: ALANINE AMINOTRANSFERASE 7 U/L (0-55); MAGNESIUM 1.9 MG/DL (1.6-2.4)
[2022-03-27 18:42] LABS: ABG OXYGEN SATURATION 85 % (94-100); ABG PO2 57 MMHG (79-93)
[2022-03-27 18:42] LABS: CREATINE KINASE 18 U/L (29-168)
[2022-03-27 18:43] LABS: ABG PCO2 112 MMHG (35-45); ABG PH 7.27 (7.37-7.43)
[2022-03-27 18:44] LABS: ALLENS TEST POSITIVE; VENTILATOR NO
[2022-03-27 18:45] LABS: PATIENT TEMP 37.7
[2022-03-27] MEDS ORDERED: FUROSEMIDE 40 MG/4 ML INJ (LASIX) IVP ONE (18:45)
[2022-03-27] MEDS ORDERED: LORazepam INJ 2 MG/ML (ATIVAN) VIAL IVP ONE (18:45)
[2022-03-27] MEDS ORDERED: LIDOCAINE UROJET 2% GEL 10 ML PKG TOP ONE (18:45)
[2022-03-27 18:49] LABS: CREATINE KINASE MB 0.8 NG/ML (<6.6)
[2022-03-27 18:53] VITALS: BP 155/97
[2022-03-27 18:56] LABS: BILIRUBIN,URINE NEGATIVE (NEGATIVE); CLARITY,URINE CLOUDY; COLOR,URINE YELLOW; GLUCOSE, URINE (UA) NEGATIVE (NEGATIVE); KETONES,URINE NEGATIVE (NEGATIVE); LEUKOCYTE ESTERASE ,URINE 2+ (NEGATIVE); NITRITE,URINE POSITIVE (NEGATIVE); PH,URINE 5.5 (5-9); PROTEIN,URINE TRACE (NEGATIVE)
[2022-03-27 19:01] LABS: TSH (THYROID ANALYZER) 1.63 UIU/ML (0.35-4.94)
[2022-03-27 19:41] LABS: ABG BASE EXCESS 23.5 MMOL/L (-2.5-2.5); ABG OXYGEN SATURATION 96 % (94-100); ABG PO2 83 MMHG (79-93)
[2022-03-27 19:46] LABS: ALLENS TEST YES-POS
[2022-03-27 19:47] LABS: ABG TCO2 55.4 MMOL/L (21.0-31.0); INSPIRED O2 60%; PATIENT TEMP 36.4; VENTILATOR NO
[2022-03-27 19:48] LABS: ABG PCO2 118 MMHG (35-45); ABG PH 7.26 (7.37-7.43)
[2022-03-27 20:14] LABS: BACTERIA,URINE LARGE /HPF; RBC,URINE TNTC /HPF; SQUAMOUS EPITHELIAL CELL,UR 0-2 /HPF; WBC,URINE TNTC /HPF; YEAST,URINE MODERATE /HPF
[2022-03-27] MEDS ORDERED: MILK OF MAGNESIA 400 MG/5 ML 30 ML UDC PO PRN (20:30)
[2022-03-27] MEDS ORDERED: NS IV 500 ML 500 ML IV PRN (20:30)
[2022-03-27] MEDS ORDERED: CALCIUM CARBONATE 500 MG (TUMS) TAB.CHEW PO PRN (20:30)
[2022-03-27] MEDS ORDERED: ONDANSETRON 4 MG (ZOFRAN) ORAL DISSOLVE TAB PO PRN (20:30)
[2022-03-27] MEDS ORDERED: diphenhydrAMINE 25 MG TAB (BENADRYL) PO PRN (20:30)
[2022-03-27] MEDS ORDERED: LACTULOSE SYRUP 10GM/15ML (ENULOSE) 30ML UDC PO PRN (20:30)
[2022-03-27] MEDS ORDERED: polyethylene glycoL POWDER 17 GM (MIRALAX) PACK PO PRN (20:30)
[2022-03-27] MEDS ORDERED: ANTACID SUSP 30 ML UDC (MYLANTA) PO PRN (20:30)
[2022-03-27] MEDS ORDERED: BISACODYL 10 MG SUPP (DULCOLAX) PR PRN (20:30)
[2022-03-27] MEDS ORDERED: MELATONIN 3 MG TABLET PO PRN (20:30)
[2022-03-27] MEDS ORDERED: ONDANSETRON 4 MG/2 ML (SDV) Z0FRAN IV PRN (20:30)
[2022-03-27] MEDS ORDERED: ACETAMINOPHEN 325 MG TABLET PO PRN (20:30)
[2022-03-27] MEDS ORDERED: diphenhydrAMINE 50 MG/ML INJ (BENADRYL) IVP PRN (20:30)
[2022-03-27 20:39] VITALS: BP 146/87
[2022-03-27] MEDS ORDERED: RT-ALBUTEROL HFA 8.5 GM INHALER IH PRN (21:00)
--- NOTE | 2022-03-27 21:23 | Tele-ICU Progress Note ---
Progress Note 66F with dementia, afib on xarelto, COPD on 2L home O2 admitted from NH with SOB and hypoxia. SpO2 in the 60s-70s on home 2L, ultimately requiring BiPap with good results. CXR with moderate edema. COVID +.66F with dementia, afib on xarelto, COPD on 2L home O2 admitted from [place] with SOB and hypoxia. SpO2 in the 60s-70s on home 2L, ultimately requiring BiPap with good results. CXR with moderate edema. COVID +.. - supportive care with solumedrol, decadron, O2, bipap, nebs - significant hypercapnia at 118, baseline probably arund 90. BiPap ongoin. DNR/DNI. - empiric rocephin initiated Focused Exam Lactate Level 03/27/22 18:00: Lactic Acid Level 0.88 Height, Weight, BMI Height: '" Weight: lbs. oz. kg; 37.00 BMI Method: Lactic Acid Level Laboratory Tests Test 03/27/22 18:00 Lactic Acid Level 0.88 MMOL/L (0.50-2.00) STORM DAVILA MD Mar 27, 2022 21:23
[2022-03-27] MEDS ORDERED: CATHETER FLUSH 10 ML SYR IVP PRN (22:00)
[2022-03-27] MEDS: RT-ALBUTEROL HFA 8.5 GM INHALER IH SCH (22:10)
[2022-03-27 22:15] VITALS: BP 101/49
[2022-03-27] MEDS ORDERED: LORazepam 1 MG (ATIVAN) TAB PO PRN (22:15)
[2022-03-27] MEDS: cefTRIAXone 2,000 MG in NS (IVPB) 50 ML IV SCH (23:14)
[2022-03-27] MEDS: SENNOSIDES 8.6 MG (SENOKOT) TAB PO SCH (23:15)
[2022-03-27] MEDS: CATHETER FLUSH 10 ML SYR IVP SCH (23:15)
[2022-03-27] MEDS: DOCUSATE SODIUM 100 MG (COLACE) CAP PO SCH (23:16)
[2022-03-27] MEDS: inSUlin ASPART (NovoLOG) 1 UNIT/0.01 ML (CHARGE PER UNIT) SC SCH (23:44)
[2022-03-28 00:11] LABS: ABG BASE EXCESS 23.4 MMOL/L (-2.5-2.5); ABG OXYGEN SATURATION 91 % (94-100); ABG PO2 71 MMHG (79-93)
[2022-03-28 00:14] LABS: ABG PH 7.24 (7.37-7.43)
[2022-03-28 00:16] LABS: ABG PCO2 124 MMHG (35-45); ABG TCO2 55.4 MMOL/L (21.0-31.0); ALLENS TEST YES-POS; INSPIRED O2 70%; PATIENT TEMP 37; VENTILATOR NO
[2022-03-28 02:43] VITALS: BP 102/52
[2022-03-28] MEDS: RT-ALBUTEROL HFA 8.5 GM INHALER IH SCH ×6 (02:43→21:21)
[2022-03-28 04:56] LABS: BASOPHILS % (AUTO) 0 % (0-10); EOSINOPHILS % (AUTO) 0 % (0-10); HEMATOCRIT 48 % (35-52); HEMOGLOBIN 13.4 g/dL (11.5-16.0); LYMPHOCYTES # (AUTO) 0.5 10^3/uL (1.0-4.0); LYMPHOCYTES % (AUTO) 10 % (12-44); MEAN CORPUSCULAR HEMOGLOBIN 28 pg (25-34); MEAN CORPUSCULAR HGB CONC 28 g/dL (32-36); MEAN CORPUSCULAR VOLUME 102 fL (80-99); MEAN PLATELET VOLUME 10.1 fL (9.0-12.2); MONOCYTES # (AUTO) 0.1 10^3/uL (0.0-1.0); MONOCYTES % (AUTO) 3 % (0-12); NEUTROPHILS # (AUTO) 4.1 10^3/uL (1.8-7.8); NEUTROPHILS % (AUTO) 87 % (42-75); PLATELET COUNT 207 10^3/uL (130-400); WHITE BLOOD COUNT 4.7 10^3/uL (4.3-11.0)
[2022-03-28 05:13] LABS: ALBUMIN 3.3 GM/DL (3.2-4.5)
[2022-03-28 05:14] LABS: POTASSIUM 4.1 MMOL/L (3.6-5.0)
[2022-03-28 05:15] LABS: CALCIUM 8.7 MG/DL (8.5-10.1)
[2022-03-28 05:16] LABS: TOTAL PROTEIN 7.1 GM/DL (6.4-8.2)
[2022-03-28 05:18] LABS: BILIRUBIN,TOTAL 0.3 MG/DL (0.1-1.0)
[2022-03-28 05:20] LABS: CREATININE SERUM 0.76 MG/DL (0.60-1.30)
[2022-03-28 05:34] LABS: LYMPHOCYTES % (MANUAL) 7 %; MONOCYTES % (MANUAL) 3 %; NEUTROPHILS % (MANUAL) 90 %
[2022-03-28 05:35] LABS: RBC MORPH NORMAL
[2022-03-28 05:46] LABS: ABG BASE EXCESS 25.4 MMOL/L (-2.5-2.5); ABG OXYGEN SATURATION 91 % (94-100); ABG PO2 71 MMHG (79-93)
[2022-03-28 05:47] LABS: ALLENS TEST YES-POS; INSPIRED O2 70%; PATIENT TEMP 36.8; VENTILATOR NO
[2022-03-28 05:48] LABS: ABG PCO2 135 MMHG (35-45); ABG PH 7.22 (7.37-7.43); ABG TCO2 58.1 MMOL/L (21.0-31.0)
[2022-03-28] MEDS: POTASSIUM CL 10MEQ/50ML IVPB 50 ML IV SCH (06:14)
[2022-03-28] MEDS: KCL 20 MEQ TAB (K-DUR) PO SCH (06:14)
[2022-03-28] MEDS: MAGNESIUM 1 GM/100 ML IVPB 100 ML IV SCH (06:14)
[2022-03-28] MEDS: inSUlin ASPART (NovoLOG) 1 UNIT/0.01 ML (CHARGE PER UNIT) SC SCH ×3 (06:14→18:05)
[2022-03-28] MEDS ORDERED: DexMEDEtomidine 250 ML DRIP 250 ML IV ONE (06:17)
[2022-03-28] MEDS: CATHETER FLUSH 10 ML SYR IVP SCH ×3 (06:24→22:15)
[2022-03-28] MEDS: DexMEDEtomidine 250 ML DRIP 250 ML IV SCH (06:25)
[2022-03-28 06:44] VITALS: BP 112/68
[2022-03-28] MEDS ORDERED: FLU QUAD HIGH DOSE 240 MCG/0.7 ML 2022-23 (FLUZONE) IM ONE (06:45)
[2022-03-28] MEDS: SENNOSIDES 8.6 MG (SENOKOT) TAB PO SCH ×2 (09:01→21:00)
[2022-03-28] MEDS: DOCUSATE SODIUM 100 MG (COLACE) CAP PO SCH ×2 (09:01→21:00)
--- NOTE | 2022-03-28 09:20 | Tele-ICU Progress Note ---
Subjective Date Seen by a Provider: Mar 28, 2022 Time Seen by a Provider: 09:20 Subjective/Events-last exam Tele-ICU Physician , Progress Note ) Available chart/ vitals / labs / Images reviewed Video assessment done using teleICU camera, rest of exam as per RN Discussed with RN Events overnight : Afebrile hemodynamically stable Respiratory - on BIPAP, WITH HYPERCARBIA. PT DNR, DNI, COVID-19 POSITIVE I/O = Drips: Pressors- no Consultants: Hospital course:, ON BIPAP WILL CHANGE TO AVAPS A/P CVS/HTN HAS POSSIBLE SEVERE PAH BASED ON CXR Rhythem Echo NOT DONE Respiratory System. possible mild chf and severe hypoxic and hypercarbic respiratory failure, DNR, DNI GI Kidneys. . 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 Stress Ulcer Prophylaxis: PER RN pt's family will visit today and make further decisions regarding goals of therapy. Poor prognosis overall Plans in collaboration with bedside consultants and IM MDs. Discussed with RN to reach out if any questions or concerns Sepsis Event Evaluation Height, Weight, BMI Height: '" Weight: lbs. oz. kg; 42.57 BMI Method: Focused Exam Lactate Level 03/27/22 18:00: Lactic Acid Level 0.88 Exam Exam Patient acknowledged, consented, and participated in this virtual visit which was conducted using real time audio/video Vital Signs Date Time Temp Pulse Resp B/P (MAP) Pulse Ox O2 Delivery O2 Flow Rate FiO2 03/28/22 09:00 71 16 83/44 (57) 95 NIV Bilevel 70.00 03/28/22 09:00 93 NIV Bilevel 70 03/28/22 08:00 76 20 111/62 (78) 95 NIV Bilevel 70.00 03/28/22 07:33 36.2 03/28/22 07:00 79 18 116/62 (80) 96 NIV Bilevel 70.00 03/28/22 07:00 78 03/28/22 06:44 80 19 94 70.00 03/28/22 06:25 86 112/68 03/28/22 06:00 79 22 95 NIV Bilevel 70.00 03/28/22 05:00 77 20 112/68 (83) 93 NIV Bilevel 70.00 03/28/22 04:00 86 26 90 NIV Bilevel 70.00 03/28/22 04:00 NIV Bilevel 70 03/28/22 03:00 87 20 124/82 (96) 91 NIV Bilevel 70.00 03/28/22 02:43 85 19 93 70.00 03/28/22 02:00 82 16 99/56 (70) 92 NIV Bilevel 70.00 03/28/22 01:00 83 21 104/53 (70) 91 NIV Bilevel 70.00 03/28/22 01:00 81 03/28/22 00:22 70.00 03/28/22 00:00 NIV Bilevel 70 03/28/22 00:00 83 28 104/50 (68) 90 NIV Bilevel 70.00 03/27/22 23:00 84 105/55 (72) NIV Bilevel 70.00 03/27/22 22:15 85 19 93 70.00 03/27/22 22:00 87 21 104/58 (73) 91 NIV Bilevel 70.00 03/27/22 21:37 89 03/27/22 21:00 86 21 93/53 (66) 90 NIV Bilevel 70.00 03/27/22 20:39 36.7 88 97 70 03/27/22 20:10 36.7 92 27 146/87 (106) 92 NIV Bilevel 70.00 03/27/22 20:00 NIV Bilevel 70 03/27/22 19:46 36.5 88 30 151/100 96 NIV Bilevel 70.00 03/27/22 18:53 98 26 91 60.00 03/27/22 18:05 91 Nasal Cannula 6.00 03/27/22 17:56 Nasal Cannula 03/27/22 17:56 93 28 148/104 (119) 97 Room Air I & O 03/28/22 07:00 Output Total 2150 ml Balance -2150 ml Height & Weight Height: '" Weight: lbs. oz. kg; 42.57 BMI Method: General Appearance: Chronically ill Capillary Refill: Less Than 3 Seconds Gastrointestinal: non tender, soft Results Lab Laboratory Tests 03/27/22 18:00 03/28/22 04:42 Assessment/Plan Assessment/Plan as above Critical Care: Critically Ill Patient Time spent with patient (mins): 20 ALMA PETERSON MD Mar 28, 2022 09:20
[2022-03-28 10:25] VITALS: BP 112/68
[2022-03-28 10:40] LABS: ABG BASE EXCESS 26.1 MMOL/L (-2.5-2.5); ABG OXYGEN SATURATION 91 % (94-100); ABG PO2 63 MMHG (79-93)
[2022-03-28 11:11] LABS: ABG PH 7.28 (7.37-7.43)
[2022-03-28 11:12] LABS: ABG PCO2 118 MMHG (35-45); ABG TCO2 57.8 MMOL/L (21.0-31.0); ALLENS TEST YES-POS; INSPIRED O2 70%; PATIENT TEMP 36.6; VENTILATOR NO
[2022-03-28] MEDS ORDERED: NS (IVPB) 250 ML IV ONE (15:15)
[2022-03-28 15:21] VITALS: BP 112/68
[2022-03-28 15:38] LABS: ABG BASE EXCESS 26.1 MMOL/L (-2.5-2.5); ABG OXYGEN SATURATION 91 % (94-100); ABG PO2 64 MMHG (79-93)
[2022-03-28 15:47] LABS: ABG PCO2 118 MMHG (35-45); ABG PH 7.28 (7.37-7.43); ABG TCO2 57.7 MMOL/L (21.0-31.0); INSPIRED O2 70; VENTILATOR NO
[2022-03-28 15:48] LABS: PATIENT TEMP 36.6
--- NOTE | 2022-03-28 16:49 | History & Physical-Hospitalist ---
History of Present Illness HPI/Chief Complaint Shweta Urena is a 66 year old female with PMH HTN, T2DM, COPD, dementia, morbid obesity, who presented with shortness of breath. This has reportedly been going on for several weeks. She is a poor historian due to her dementia at baseline, and now due to her current clinical state. Her son is reported as her DPOA. He confirms her DNR/DNI status. Source: RN/MD Exam Limitations: clinical condition Date Seen 03/28/22 Time Seen by a Provider: 09:15 Attending Physician No,Local Physician PCP Admitting Physician: Susy Shaver MD Attending Physician: Susy Shaver MD Referring Physician Date of Admission Mar 27, 2022 at 19:05 Home Medications & Allergies Home Medications Reviewed patient Home Medication Reconciliation performed by pharmacy medication reconciliations scale technician and/or nursing. Patients Allergies have been reviewed. Allergies Allergies Coded Allergies Penicillins (Verified Allergy, Unknown, Rash, 11/26/21) Past Kfytazq-Nmbeny-Dvvcnk Hx Patient Social History Tobacco Use?: Yes Tobacco type used: Cigarettes Smoking Status: Current Everyday Smoker Use of E-Cig and/or Vaping dev: No Substance use?: Unable to obtain Alcohol Use?: Yes Alcohol Frequency: Once in a while Pt feels they are or have been: Unable to obtain Immunizations Up To Date First/Initial COVID19 Vaccinat: 11/22/2020 Second COVID19 Vaccination Harrison: 01/16/2021 Tetanus Booster (TDap): Unknown Current Status Advance Directives: Unable to obtain Communicates: Verbally Primary Language: Austrian Preferred Spoken Language: Austrian Implanted or Applied Medical D: None Past Medical History Surgeries: Hysterectomy Sleep Apnea, COPD Currently Using CPAP: Yes Currently Using BIPAP: No Chronic Edema/Swelling, High Cholesterol, Hypertension Dementia, Neuropathy, Stroke 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 oz. kg; 42.57 BMI Method: General Appearance: No Apparent Distress, Obese HEENT: Other (wearing BIPAP) Respiratory: No Respiratory Distress, Decreased Breath Sounds, Other (wearing BIPAP) Cardiovascular: Regular Rate, Rhythm, No Murmur, Normal Peripheral Pulses Gastrointestinal: Normal Bowel Sounds, Soft Extremity: Normal Inspection, Pedal Edema Neurologic/Psychiatric: Alert, Disoriented, Other (unable to follow commands) Skin: Normal Color, Warm/Dry Results Results/Procedures Labs Laboratory Tests 03/27/22 18:00 03/28/22 04:42 Patient resulted labs reviewed. Imaging: Reviewed Imaging Report Assessment/Plan Admission Diagnosis Acute respiratory failure due to COVID-19 Admission Status: Inpatient Order (span 2 midnights) Reason for Inpatient Admission: Respiratory failure Assessment and Plan Acute respiratory failure with hypoxia and hypercapnia CO2 narcosis COVID-19 COPD with acute exacerbation Poor prognosis Goals of care discussion COVID+ Decadron MAT protocol Hold Xarelto Therapeutic Lovenox TeleICU consulted ABG with acute hypercapnia Started on BiPAP Worsening CO2 trend despite BiPAP Discussed poor prognosis and goals with son, confirmed DNR/DNI, will continue BiPAP for now Dementia Hypothyroidism Morbid obesity Critical Care Critically Ill Patient Diagnosis/Problems Diagnosis/Problems (1) Acute on chronic respiratory failure with hypoxia and hypercapnia Status: Acute (2) CO2 narcosis Status: Acute (3) Acute respiratory failure due to COVID-19 Status: Acute (4) COPD (chronic obstructive pulmonary disease) Status: Acute (5) Dementia Status: Acute (6) Poor prognosis Status: Acute (7) Goals of care, counseling/discussion Status: Acute SUSY SHAVER MD Mar 28, 2022 16:49
[2022-03-28] MEDS ORDERED: RIVAROXABAN 20 MG TABLET (XARELTO) PO SCH (17:00)
[2022-03-28] MEDS: ENOXAPARIN 300 MG/3 ML (LOVENOX) MULTI-DOSE VIAL SQ SCH (18:11)
[2022-03-28] MEDS ORDERED: FUROSEMIDE 40 MG/4 ML INJ (LASIX) IVP ONE (18:15)
[2022-03-28] MEDS: cefTRIAXone 2,000 MG in NS (IVPB) 50 ML IV SCH (22:56)
[2022-03-29] MEDS: RT-ALBUTEROL HFA 8.5 GM INHALER IH SCH ×4 (01:17→14:40)
[2022-03-29] MEDS: DexMEDEtomidine 250 ML DRIP 250 ML IV SCH ×3 (04:46→18:33)
[2022-03-29 05:56] LABS: BASOPHILS % (AUTO) 0 % (0-10); EOSINOPHILS % (AUTO) 0 % (0-10); HEMATOCRIT 49 % (35-52); HEMOGLOBIN 13.4 g/dL (11.5-16.0); LYMPHOCYTES % (AUTO) 16 % (12-44); MEAN CORPUSCULAR HEMOGLOBIN 28 pg (25-34); MEAN CORPUSCULAR HGB CONC 28 g/dL (32-36); MEAN CORPUSCULAR VOLUME 101 fL (80-99); MEAN PLATELET VOLUME 9.5 fL (9.0-12.2); MONOCYTES # (AUTO) 0.4 10^3/uL (0.0-1.0); MONOCYTES % (AUTO) 6 % (0-12); NEUTROPHILS % (AUTO) 77 % (42-75); PLATELET COUNT 180 10^3/uL (130-400); WHITE BLOOD COUNT 6.4 10^3/uL (4.3-11.0)
[2022-03-29] MEDS: MAGNESIUM 1 GM/100 ML IVPB 100 ML IV SCH (06:00)
[2022-03-29] MEDS: POTASSIUM CL 10MEQ/50ML IVPB 50 ML IV SCH (06:00)
[2022-03-29] MEDS: CATHETER FLUSH 10 ML SYR IVP SCH ×2 (06:00→14:49)
[2022-03-29] MEDS: inSUlin ASPART (NovoLOG) 1 UNIT/0.01 ML (CHARGE PER UNIT) SC SCH ×4 (06:00→17:54)
[2022-03-29] MEDS: KCL 20 MEQ TAB (K-DUR) PO SCH (06:00)
[2022-03-29 06:21] LABS: ALBUMIN 3.1 GM/DL (3.2-4.5); POTASSIUM 4.6 MMOL/L (3.6-5.0)
[2022-03-29 06:22] LABS: CALCIUM 9.2 MG/DL (8.5-10.1)
[2022-03-29 06:23] LABS: TOTAL PROTEIN 6.8 GM/DL (6.4-8.2)
[2022-03-29 06:25] LABS: BILIRUBIN,TOTAL 0.3 MG/DL (0.1-1.0)
[2022-03-29 06:27] LABS: CREATININE SERUM 0.73 MG/DL (0.60-1.30)
[2022-03-29] MEDS: ENOXAPARIN 300 MG/3 ML (LOVENOX) MULTI-DOSE VIAL SQ SCH ×2 (06:40→18:33)
[2022-03-29 07:15] VITALS: BP 139/85
[2022-03-29] MEDS: SENNOSIDES 8.6 MG (SENOKOT) TAB PO SCH (08:20)
[2022-03-29] MEDS: DOCUSATE SODIUM 100 MG (COLACE) CAP PO SCH (08:20)
--- NOTE | 2022-03-29 09:22 | Tele-ICU Progress Note ---
Subjective Date Seen by a Provider: Mar 29, 2022 Subjective/Events-last exam This virtual visit was conducted using real time audio/video. Thank you for asking us to see this patient for respiratory insufficiency due to Covid, AECOPD. Recent events: Placed on AVAPS SH: smoking history: current PE: VSS. Morbid obesity, slight tachpnea. O2 sat 90% on AVAPS 75%. HEENT: No obvious masses, adenopathy or JVD. Chest: Greatly diminished on auscultation. CV: RRR S1 S2 No murmur or added sounds. Abd: Non-tender. Bowel sounds Y. : Unremarkable. Rinaldi Y. COAL CARRIER/psychiatric: Grossly intact. No obvious focal findings. Extremities: 1-2+ edema. Capillary refill < 3 seconds. Skin: unremarkable. Results: Elevated BUN 19, BG 133, D-Dimer 1.03. AB.28/118/64 on 70%. CXR: Hyperinflated, B int. infilts., cardiomeg. . Available chart/ vitals / labs / images reviewed. Video assessment done using teleICU camera, rest of exam as per RN. A/P: Respiratory insufficiency: Continue present management with AVAPS, albut., decadron, Prec. Consider pall. care consult. Critical Care: critically ill patient. Cont abx, SSI, Eugene.. Discussed with GAGAN Eng. Asked RN to reach out to eICU if any questions or concerns later. Time spent with patient/coordination of care with other health professionals (mins): Sepsis Event Evaluation Height, Weight, BMI Height: '" Weight: lbs. oz. kg; 41.48 BMI Method: Focused Exam Lactate Level 03/27/22 18:00: Lactic Acid Level 0.88 Exam Exam Patient acknowledged, consented, and participated in this virtual visit which was conducted using real time audio/video Vital Signs Date Time Temp Pulse Resp B/P (MAP) Pulse Ox O2 Delivery O2 Flow Rate FiO2 03/29/22 08:53 51 23 135/94 (108) 91 NIV Bilevel 75.00 03/29/22 08:20 55 129/82 03/29/22 08:00 52 25 129/82 (98) 91 NIV Bilevel 75.00 03/29/22 08:00 94 NIV Bilevel 75 03/29/22 07:15 50 57 93 75.00 03/29/22 07:01 36.3 51 21 139/85 (103) 93 NIV Bilevel 75.00 03/29/22 07:00 54 03/29/22 06:00 49 23 134/84 (101) 92 NIV Bilevel 75.00 03/29/22 05:14 36.5 49 27 130/87 (101) 93 NIV Bilevel 75.00 03/29/22 04:01 93 NIV Bilevel 75 03/29/22 04:00 48 25 121/76 (91) 95 NIV Bilevel 75.00 03/29/22 03:00 49 24 122/81 (95) 92 NIV Bilevel 75.00 03/29/22 02:00 49 16 138/90 (106) 95 NIV Bilevel 75.00 03/29/22 01:18 47 25 93 75.00 03/29/22 01:00 48 17 107/70 (82) 91 NIV Bilevel 75.00 03/29/22 01:00 50 03/29/22 00:01 91 NIV Bilevel 75 03/29/22 00:00 57 26 100/69 (79) 94 NIV Bilevel 75.00 03/28/22 23:00 48 105/67 (80) 92 NIV Bilevel 75.00 03/28/22 22:05 NIV Bilevel 75.00 03/28/22 22:00 56 103/76 (85) 95 NIV Bilevel 70.00 03/28/22 21:21 61 25 94 70.00 03/28/22 21:00 62 124/75 (91) 91 NIV Bilevel 70.00 03/28/22 20:01 92 NIV Bilevel 70 03/28/22 20:00 57 118/65 (82) 90 NIV Bilevel 70.00 03/28/22 19:57 36.4 03/28/22 19:25 61 25 93 70.00 03/28/22 19:00 64 03/28/22 19:00 63 17 128/85 (99) 94 NIV Bilevel 70.00 03/28/22 18:00 53 25 118/75 (89) 94 NIV Bilevel 70.00 03/28/22 17:00 49 24 113/70 (84) 93 NIV Bilevel 70.00 03/28/22 16:00 49 25 112/70 (84) 90 NIV Bilevel 70.00 03/28/22 15:58 36.1 03/28/22 15:36 93 NIV Bilevel 70 03/28/22 15:21 49 25 92 70.00 03/28/22 15:00 50 24 95 NIV Bilevel 70.00 03/28/22 14:00 51 22 104/63 (77) 96 NIV Bilevel 70.00 03/28/22 13:00 58 22 95/54 (68) 96 NIV Bilevel 70.00 03/28/22 12:46 58 03/28/22 12:00 36.6 03/28/22 12:00 91 NIV Bilevel 70 03/28/22 12:00 53 24 91/55 (67) 99 NIV Bilevel 70.00 03/28/22 11:00 68 16 106/62 (77) 93 NIV Bilevel 70.00 03/28/22 10:28 61 92/54 03/28/22 10:25 80 19 94 70.00 03/28/22 10:00 69 26 91/55 (67) 90 NIV Bilevel 70.00 I & O 03/29/22 07:00 Intake Total 300 ml Output Total 975 ml Balance -675 ml Height & Weight Height: '" Weight: lbs. oz. kg; 41.48 BMI Method: General Appearance: Chronically ill HEENT: Other (wearing BIPAP) Respiratory: No Respiratory Distress, Decreased Breath Sounds, Other (wearing BIPAP) Cardiovascular: Regular Rate, Rhythm, No Murmur, Normal Peripheral Pulses Capillary Refill: Less Than 3 Seconds Gastrointestinal: non tender, soft Extremity: Normal Inspection, Pedal Edema Neurologic/Psychiatric: Alert, Disoriented, Other (unable to follow commands) Skin: Normal Color, Warm/Dry Results Lab Laboratory Tests 03/27/22 18:00 03/28/22 04:42 03/29/22 05:39 Assessment/Plan Assessment/Plan See free text. Critical Care: Critically Ill Patient ANN MARIE BERNARDO MD Mar 29, 2022 09:22
[2022-03-29 10:53] VITALS: BP 167/112
[2022-03-29] MEDS ORDERED: LORazepam INJ 2 MG/ML (ATIVAN) VIAL IVP ONE (12:15)
[2022-03-29 14:40] VITALS: BP 160/77
[2022-03-29] MEDS ORDERED: RT-ALBUTEROL/IPRATROPIUM 3 ML (DUONEB) VIAL INH PRN (20:00)
[2022-03-29] MEDS ORDERED: SALIVA STIMULANT MOUTH SPRAY (BIOTENE) 1.5 OZ MM PRN (20:00)
[2022-03-29] MEDS ORDERED: LORazepam 1 MG (ATIVAN) TAB SL PRN (20:00)
[2022-03-29] MEDS ORDERED: ONDANSETRON 4 MG/2 ML (SDV) Z0FRAN IVP PRN (20:00)
[2022-03-29] MEDS ORDERED: morphine INJ 4 MG/ML 1 ML (VIAL/SYRINGE) IV PRN (20:00)
[2022-03-29] MEDS ORDERED: GLYCOPYRROLATE 0.2 MG/ML (ROBINUL) 2 ML VIAL IV PRN (20:00)
[2022-03-29] MEDS ORDERED: ARTIFICAL TEARS 0.4 ML UNIT DOSE (REFRESH PLUS) OU PRN (20:00)
[2022-03-29] MEDS ORDERED: ACETAMINOPHEN 650 MG SUPP (TYLENOL) PR PRN (20:00)
[2022-03-29] MEDS ORDERED: BISACODYL 10 MG SUPP (DULCOLAX) PR PRN (20:00)
[2022-03-29] MEDS ORDERED: PROMETHAZINE INJ 25 MG/ML (PHENERGAN) AMP IVP PRN (20:00)
--- NOTE | 2022-03-29 20:30 | Progress Note - Hospitalist ---
Subjective HPI/CC On Admission Date Seen by Provider: Mar 29, 2022 Time Seen by Provider: 11:00 Shweta Urena is a 66 year old female with PMH HTN, T2DM, COPD, dementia, morbid obesity, who presented with shortness of breath. This has reportedly been going on for several weeks. She is a poor historian due to her dementia at [facility], and now due to her current clinical state. Her son is reported as her DPOA. He confirms her DNR/DNI status. Subjective/Events-last exam She is awake and alert but confused and unable to follow commands. She is restless and grabbing all lines and tubes connected to her. Focused Exam Lactate Level 03/27/22 18:00: Lactic Acid Level 0.88 Objective Exam Vital Signs Vital Signs Date Time Temp Pulse Resp B/P (MAP) Pulse Ox O2 Delivery O2 Flow Rate FiO2 03/29/22 18:00 79 27 154/96 (115) 96 NIV Bilevel 90.00 03/29/22 16:00 90 03/29/22 11:29 36.7 Capillary Refill : Less Than 3 Seconds General Appearance: No Apparent Distress, Obese Respiratory: No Respiratory Distress, Decreased Breath Sounds, Other (wearing B iPAP) Cardiovascular: Regular Rate, Rhythm, No Murmur Gastrointestinal: Normal Bowel Sounds, Soft Extremity: Non Tender, Pedal Edema Neurologic/Psychiatric: Alert, Disoriented Skin: Normal Color, Warm/Dry Results/Procedures Lab Laboratory Tests 03/29/22 05:39 Patient resulted labs reviewed. Imaging: Reviewed Imaging Report Assessment/Plan Assessment and Plan Assess & Plan/Chief Complaint Acute respiratory failure with hypoxia and hypercapnia CO2 narcosis COVID-19 COPD with acute exacerbation Poor prognosis Goals of care discussion Dementia Hypothyroidism Morbid obesity Failure to improve despite aggressive care, BiPAP Family elected to transition to comfort measures only status Comfort care order set placed Critical Care Critically Ill Patient Diagnosis/Problems Diagnosis/Problems (1) Acute on chronic respiratory failure with hypoxia and hypercapnia Status: Acute (2) CO2 narcosis Status: Acute (3) Acute respiratory failure due to COVID-19 Status: Acute (4) COPD (chronic obstructive pulmonary disease) Status: Acute (5) Dementia Status: Acute (6) Morbid obesity Status: Chronic (7) Poor prognosis Status: Acute (8) Goals of care, counseling/discussion Status: Acute (9) Comfort measures only status Status: Acute LALI SHAVER MD Mar 29, 2022 20:30
== END 2022-03-29 21:55 | disposition expired | DRG 177 ==
LOC: EDUNIT# 17:56 → ER 17:59 → ICU 19:05
PROVIDERS: ADMIT Internal Medicine; ATTEND Internal Medicine
PROC: 5A09457 Assistance with Respiratory Ventilation, 24-96 Consecutive Hours, Continuous Positive Airway Pressure (ICD-10-PCS; principal; 2022-03-27)
DX: U07.1 COVID-19 (principal); J96.21 Acute and chronic respiratory failure with hypoxia; J96.22 Acute and chronic respiratory failure with hypercapnia; J44.1 Chronic obstructive pulmonary disease with (acute) exacerbation; Z68.41 Body mass index [BMI] 40.0-44.9, adult; F03.90 Unspecified dementia, unspecified severity, without behavioral disturbance, psychotic disturbance, mood disturbance, and anxiety; Z66 Do not resuscitate; Z51.5 Encounter for palliative care; E11.9 Type 2 diabetes mellitus without complications; I11.0 Hypertensive heart disease with heart failure; I50.9 Heart failure, unspecified; E66.01 Morbid (severe) obesity due to excess calories; E03.9 Hypothyroidism, unspecified; F17.210 Nicotine dependence, cigarettes, uncomplicated; I48.91 Unspecified atrial fibrillation; Z79.4 Long term (current) use of insulin; Z79.01 Long term (current) use of anticoagulants; Z99.81 Dependence on supplemental oxygen; Z88.0 Allergy status to penicillin
CPT/HCPCS: 36415; 51702; 71045; 80053; 81000; 82550; 82553; 82805; 82947; 83605; 83735; 83874; 83880; 84145; 84443; 84484; 85007; 85025; 85027; 85379; 85610; 85652; 85730; 86141; 87040; 87077; 87081; 87088; 87186; 87636; 93005; 93041; 94640; 94660; 99291